=== PATIENT | male | born 1945 | race Caucasian/White ===

== ENCOUNTER 2024-02-03 19:37 | Observation (INO) | payer OTHER, SELFPAY ==
[2024-02-03] VITALS (29 sets, daily range): BP systolic 140–200; BP diastolic 79–111; PULSE 70–107; TEMP 36.7; O2SAT 97; BMI 29.6
--- NOTE | 2024-02-03 19:47 | ECG_ITS ---
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
--- NOTE | 2024-02-03 19:47 | ED.GENADUL1 ---
HPI HPI - General Adult General Chief complaint: Dizziness Stated complaint: WEAKNESS, DIZZINESS Time Seen by Provider: 02/03/24 19:42 Source: patient Mode of arrival: ambulance Limitations: no limitations History of Present Illness HPI narrative: 78-year-old male presents for generalized weakness. It started while he was having a verbal argument with his daughter with whom he lives. He did not have any pain at any point, he does not complain of chest pain or abdominal pain, he just felt weak. No fever or vomiting. He states he has not eaten much today because his daughter is in charge of that. He also states he does not like to be told what to do and she was telling him what to do. Related Data Allergies Allergy/AdvReac Type Severity Reaction Status Date / Time No Known Drug Allergies Allergy Verified 02/03/24 19:46 Opioid HPI Opioid Management Most Recent Opioid Data: No Data to Display Review of Systems ROS Narrative A ten point review of systems is negative except as noted above. PFSH PFSH Social History Little interest or pleasure in doing things: not at all Feeling down, depressed, or hopeless: not at all Exam Narrative Exam Narrative: Nurses note and vital signs reviewed and patient is not hypoxic. General: The patient appears in no acute distress. He smells of urine. He appears approximately his stated age. Skin: Warm, dry, no pallor noted. There is no rash noted. Head: Normocephalic, atraumatic Eye: Normal conjunctiva, no drainage Ears, Nose, Mouth, and Throat: oral mucosa is moist. Nares patent. Cardiovascular: Regular Rate and Rhythm Respiratory: Patient is in no distress, no accessory muscle use, lungs are clear to auscultation, no wheezing, rales or rhonchi Back: non-tender GI: Soft and nontender. Musculoskeletal: The patient has no evidence of calf tenderness, no pitting edema, symmetrical pulses noted bilaterally Neurological: Awake alert and orient Psychiatric: Cooperative Constitutional Vital Signs, click to edit/add: Last Vital Signs Temp 98.1 F 02/03/24 19:48 Pulse 71 02/03/24 23:00 Resp 15 02/03/24 23:00 BP 140/88 02/03/24 23:16 Pulse Ox 97 02/03/24 19:39 O2 Del Method Room Air 02/03/24 19:39 Course Vital Signs Vital signs: Vital Signs Pulse Rate 92 H 02/03/24 19:39 Respiratory Rate 18 02/03/24 19:39 Blood Pressure 155/101 H 02/03/24 19:39 Pulse Oximetry 97 02/03/24 19:39 Oxygen Delivery Method Room Air 02/03/24 19:39 Temperature 98.1 F 02/03/24 19:48 Pulse Rate 71 02/03/24 23:00 Respiratory Rate 15 02/03/24 23:00 Blood Pressure 140/88 02/03/24 23:16 Pulse Oximetry 97 02/03/24 19:39 Oxygen Delivery Method Room Air 02/03/24 19:39 Medical Decision Making MDM Narrative Medical decision making narrative: The patient came in with vague complaints but was found to have elevated blood pressure and elevated blood sugar. He is noncompliant with his medications. He was given IV hydralazine and his blood pressures come down. He will be admitted for medical management of his hypertension and diabetes but also should have a social insurance specialist consult. According to paramedics Adult Protective Services has already been involved with him but to what extent we are not certain. Findings are discussed with the patient. Differential Diagnosis Differential Diagnosis: Noncompliance, hypertension, diabetes, anemia, acute kidney injury Lab Data Lab results reviewed: Yes I reviewed the patient's lab results Labs: Lab Results 02/03/24 02/03/24 02/03/24 Range/Units 19:50 20:53 21:30 WBC 8.5 (4.0-11.0) 10^3/uL RBC 4.66 L (4.70-6.10) 10^6/uL Hgb 13.9 L (14.0-18.0) g/dL Hct 41.7 L (42.0-54.0) % MCV 89.5 (80.0-94.0) fL MCH 29.8 (25.9-34.0) pg MCHC 33.3 (29.9-35.2) g/dL RDW 13.0 (11.0-15.0) % Plt Count 235 (150-450) 10^3/uL MPV 10.8 (9.5-13.5) fL Neut % (Auto) 75.7 H (43.0-75.0) % Lymph % (Auto) 15.4 L (20.5-60.0) % [place] % (Auto) 5.9 (1.7-12.0) % Eos % (Auto) 1.8 (0.9-7.0) % Baso % (Auto) 0.5 (0.2-2.0) % Neut # (Auto) 6.4 (1.4-6.5) 10^3/uL Lymph # (Auto) 1.3 (1.2-3.8) 10^3/uL [place] # (Auto) 0.5 (0.3-0.8) 10^3/uL Eos # (Auto) 0.2 (0.0-0.7) 10^3/uL Baso # (Auto) 0.0 (0.0-0.1) 10^3/uL Abs Immat Gran (auto) 0.06 H (0.00-0.03) 10^3/uL Imm/Tot Granulo (auto) 0.7 H (0.0-0.5) % Sodium 133 L (136-145) mmol/L Potassium 3.7 (3.5-5.1) mmol/L Chloride 98 (98-107) mmol/L Carbon Dioxide 25.8 (21.0-32.0) mmol/L Anion Gap 12.9 BUN 18.0 (7.0-18.0) mg/dL Creatinine 1.06 (0.70-1.30) mg/dL Est GFR ( Amer) >60 (>=60) Est GFR (Non-Af Amer) >60 (>=60) BUN/Creatinine Ratio 17.0 Glucose 348 H (74-106) mg/dL Calcium 8.8 (8.5-10.1) mg/dL Troponin I High Sens 13.5 (4.0-76.1) pg/mL Urine Color Yellow (YELLOW) Urine Clarity Clear (CLEAR) Urine pH 6.0 (5.0-9.0) Ur Specific [place] 1.020 (1.005-1.025) Urine Protein Negative (NEG/TRACE) mg/dL Urine Glucose (UA) >=1000 A (NEGATIVE) mg/dL Urine Ketones Negative (NEGATIVE) mg/dL Urine Occult Blood Negative (NEGATIVE) Urine Nitrite Negative (NEGATIVE) Urine Bilirubin Negative (NEGATIVE) Urine Urobilinogen 1.0 (0.2-1.0) EU/dL Ur Leukocyte Esterase Negative (NEGATIVE) Urine RBC None seen (0-2) #/HPF Urine WBC 0-2 A (NONE SEEN) #/HPF Ur Squamous Epith Cells Few A (NONE/RARE) #/LPF Urine Crystals None seen (None Seen) #/HPF Urine Bacteria Trace A (NONE SEEN) #/HPF Urine Casts None seen (NONE SEEN) #/LPF Urine Mucus Trace A (NONE SEEN) Imaging Data Chest x-ray: My impression: Chest x-ray my interpretation shows no acute findings ECG Data Attestation: I personally reviewed and interpreted this ECG as follows: (EKG on my interpretation shows sinus rhythm with first-degree AV block and a rate of 84. No acute change.) Critical Care Time Critical Care Time Critical Care Time: Yes Total Critical Care Time: 35 Attestation: Due to the high probability of sudden and clinically significant deterioration in the patient's condition he/she required the highest level of my preparedness to intervene urgently I provided critical care time including documentation time, medication orders and management, reevaluation, vital sign assessment, ordering and reviewing of lab tests, ordering and reviewing of x-ray studies, and admission orders. Aggregate critical care time is 35 minutes including only time during which I was engaged in work directly related to his/her care and did not include time spent treating other patients simultaneously. Discharge Plan Discharge Chief Complaint: Dizziness Clinical Impression: Hypertension, Noncompliance, Poor social situation Patient Disposition: Admitted as Observation Time of Disposition Decision: 23:17 Condition: Fair
[2024-02-03 20:33] LABS: Basophils Percent Auto 0.5 % (0.2-2.0); Eosinophils Absolute Auto 0.2 10^3/uL (0.0-0.7); Eosinophils Percent Auto 1.8 % (0.9-7.0); Hematocrit 41.7 % (42.0-54.0); Hemoglobin 13.9 g/dL (14.0-18.0); Immature Granulocytes Abs Auto 0.06 10^3/uL (0.00-0.03); Immature Granulocytes Pct Auto 0.7 % (0.0-0.5); Lymphocytes Absolute Auto 1.3 10^3/uL (1.2-3.8); Lymphocytes Percent Auto 15.4 % (20.5-60.0); Mean Corpuscular HGB Conc 33.3 g/dL (29.9-35.2); Mean Corpuscular Hemoglobin 29.8 pg (25.9-34.0); Mean Corpuscular Volume 89.5 fL (80.0-94.0); Mean Platelet Volume 10.8 fL (9.5-13.5); Monocytes Absolute Auto 0.5 10^3/uL (0.3-0.8); Monocytes Percent Auto 5.9 % (1.7-12.0); Neutrophils Absolute Auto 6.4 10^3/uL (1.4-6.5); Neutrophils Percent Auto 75.7 % (43.0-75.0); Platelet Count 235 10^3/uL (150-450); Red Blood Count 4.66 10^6/uL (4.70-6.10); White Blood Count 8.5 10^3/uL (4.0-11.0)
[2024-02-03 21:41] LABS: Anion Gap 12.9; Calcium 8.8 mg/dL (8.5-10.1); Carbon Dioxide 25.8 mmol/L (21.0-32.0); Chloride 98 mmol/L (98-107); Estimated GFR (African America >60 (>=60); Estimated GFR (Non-African Ame >60 (>=60); Glucose 348 mg/dL (74-106); Potassium 3.7 mmol/L (3.5-5.1); Sodium 133 mmol/L (136-145); Troponin I High Sensitivity 13.5 pg/mL (4.0-76.1)
[2024-02-03 21:42] LABS: Bilirubin Urine NEGATIVE (NEGATIVE); Blood Urine NEGATIVE (NEGATIVE); Clarity Urine CLEAR (CLEAR); Color Urine YELLOW (YELLOW); Glucose Urine UA >=1000 mg/dL (NEGATIVE); Ketones Urine NEGATIVE (NEGATIVE); Leukocyte Esterase Urine NEGATIVE (NEGATIVE); Nitrite Urine NEGATIVE (NEGATIVE); Protein Urine NEGATIVE (NEG/TRACE)
[2024-02-03 22:34] LABS: Bacteria Urine TRACE #/HPF (NONE SEEN); Cast Seen? NONE SEEN #/LPF (NONE SEEN); Crystals Seen? None Seen #/HPF (None Seen); RBC Urine NONE SEEN #/HPF (0-2); Squamous Epithelial Cell Urine FEW #/LPF (NONE/RARE); WBC Urine 0-2 #/HPF (NONE SEEN)
[2024-02-03 22:35] LABS: Mucus Urine TRACE (NONE SEEN)
--- NOTE | 2024-02-03 22:54 | XR_ITS ---
The [address] [address] Patient Name: MAIN SAUCEDA MRN: [id number] date: 1945 Sex: M Assigned Patient Location: ER Current Patient Location: ED.MAIN Accession/Order Number: [id number] Exam Date: 02/03/2024 23:10 Report Date: 02/03/2024 23:53 At the request of: JERONIMO TUCKER Procedure: XR chest 1V XR chest 1V 02/03/2024 10:10 PM CDT: History: weak Comparison: None. Technique: 1 view chest Findings: The cardiomediastinal silhouette is normal. There are postoperative changes from CABG. The lungs are clear without infiltrate, effusion, or pneumothorax. The bones are intact. XR/XR chest 1V Impression: No acute cardiopulmonary process. Electronically authenticated by: MECCA GRIMALDO Date: 02/03/2024 23:53
[2024-02-03] MEDS: HYDRALAZINE HCL 20 MG/ML VIAL 10 MG IVP (22:58)
[2024-02-04] VITALS (13 sets, daily range): BP systolic 126–160; BP diastolic 71–79; PULSE 59–104; TEMP 36.4–36.8; O2SAT 94–97; BMI 26.1
[2024-02-04 06:03] LABS: Basophils Absolute Auto 0.1 10^3/uL (0.0-0.1); Basophils Percent Auto 0.6 % (0.2-2.0); Eosinophils Absolute Auto 0.3 10^3/uL (0.0-0.7); Eosinophils Percent Auto 2.9 % (0.9-7.0); Hematocrit 38.4 % (42.0-54.0); Hemoglobin 12.6 g/dL (14.0-18.0); Immature Granulocytes Abs Auto 0.04 10^3/uL (0.00-0.03); Immature Granulocytes Pct Auto 0.5 % (0.0-0.5); Lymphocytes Absolute Auto 1.7 10^3/uL (1.2-3.8); Lymphocytes Percent Auto 19.6 % (20.5-60.0); Mean Corpuscular HGB Conc 32.8 g/dL (29.9-35.2); Mean Corpuscular Volume 88.3 fL (80.0-94.0); Monocytes Absolute Auto 0.7 10^3/uL (0.3-0.8); Monocytes Percent Auto 7.8 % (1.7-12.0); Neutrophils Absolute Auto 6.1 10^3/uL (1.4-6.5); Neutrophils Percent Auto 68.6 % (43.0-75.0); Platelet Count 233 10^3/uL (150-450); Red Blood Count 4.35 10^6/uL (4.70-6.10); White Blood Count 8.9 10^3/uL (4.0-11.0)
[2024-02-04 06:26] LABS: Alanine Aminotransferase 8 U/L (16-63); Albumin Globulin Ratio 0.7; Albumin Level 2.7 g/dL (3.4-5.0); Alkaline Phosphatase 122 U/L (46-116); Anion Gap 10.7; Aspartate Amino Transferase 7 U/L (15-37); BUN Creatinine Ratio 18.3; Bilirubin Total 0.5 mg/dL (0.2-1.0); Calcium 8.5 mg/dL (8.5-10.1); Carbon Dioxide 26.7 mmol/L (21.0-32.0); Chloride 100 mmol/L (98-107); Estimated GFR (African America >60 (>=60); Estimated GFR (Non-African Ame >60 (>=60); Globulin 3.7 g/dL; Glucose 218 mg/dL (74-106); Magnesium 1.8 mg/dL (1.8-2.4); Potassium 3.4 mmol/L (3.5-5.1); Sodium 134 mmol/L (136-145); Total Protein 6.4 g/dL (6.4-8.2)
[2024-02-04 07:40] LABS: Glucometer 205 mg/dL (74-106)
[2024-02-04] MEDS: ENOXAPARIN SODIUM 40 MG/0.4 ML SYRINGE SUBQ (08:17)
--- NOTE | 2024-02-04 10:25 | CM.NOTE ---
Rounds made with Dr. Alonzo. Dr. Alonzo reviews plan of care with Mr. Thomas. Understanding verbalized. Discussed with Mr. Thomas the need for Family Physician as he does not have one. List given for physicians/[employer] currently accepting new patients. Mr. Thomas will decide who he would like after he finishes breakfast.
--- NOTE | 2024-02-04 11:22 | SWNOTE1 ---
SW met with pt to discuss dc needs. SW had a protective service order as well. Pt has 2 daughters, Fern and Lucy. He also has a son that he does not speak to. Lucy his one daughter does live on the property with patient. Pt bought 2 lots awhile back and he lives in the yard building. There is an outhouse outside. Pt does not have running water, but stated they go to the water station in [place] to get water when needed. SW asked about electricity? Pt stated they run off batteries. SW asked about getting food and having food available? Pt stated his daughter uses some kind of taxi transportation to get food when they need it. He spoke about his daughter Lucy and how she is trying to boss him around, per patient. He stated she is on probation and she also gets in to it with the neighbors and he has told her not to. SW did ask if pt has any plans of harming his daughter as he has voiced frustrations about her, he stated no. He voiced he just makes things work. SW asked if he would need any resources in regards to care home, food, electric, or water? He stated no he will be fine and he makes it work. SW did ask if Adult Protective Services have ever been at his home? He stated no. Pt voiced that a Automobile Rental Representative stops by every once in awhile and checks on him. Pt did go in to detail about the struggles he had in the past. He spoke about caring for his for 11 years while she was on dialysis. She passed back in 2008. He spoke about building the house they lived in outside of [place]. Pt then spoke about how a toll bridge operator had made something up about his taxes and then his home was basically given away and he could not bid on it. Pt did voice frustrations with all of this and also became teary-eyed when speaking about his . Pt voiced there was nothing he can do about it now and he is tough and will be fine. Pt does have walkers at home, a cane, and stated his daughter got him a motorized chair, but he has not seen it yet. SW [facility]? He stated the [facility] does not [facility] anything for him. SW again asked pt if he felt safe to discharge and if he needs any resources? Pt again voiced he was fine. SW did provide pt with SW card and encouraged pt to reach out if he does need any resources. TANIKA did ask if SW can call pt's daughter, Lucy, since she called the nurses floor? He stated there is no need to talk to her. TANIKA asked if pt's daughter called SW what would pt like SW to tell her? He stated to tell her that SW has not seen pt. At this time pt does not want SW to speak with daughter. Pt and daughter do not drive as they do not have a battery for the van. SW asked how pt was going to get home? SW advised that trips is closed today. Pt voiced he will find a ride. SW to check back later to see if a ride was found. SW asked pt if he was going to follow up with a doctor if we can set him up with a physician. Pt voiced he does not really need to as he is not on medications and just needs the meds he is discharged on. TANIKA updated nursing. At this time SW is not making a referral to Adult Protective Services as SW does feel pt is able to care for himself no concerns for his safety.
[2024-02-04 12:00] LABS: Glucometer 395 mg/dL (74-106)
--- NOTE | 2024-02-04 12:15 | SWNOTE1 ---
SW spoke to physical therapy and pt did not do too well with therapy. Pt struggled getting up, but once he was up he did alright. SW to speak with pt about going to nursing facility or having home health come in. SW went in to speak with pt about discharge plans. SW asked how therapy went? Pt did state it was hard to get up, but once he was up he got to the chair just fine. SW asked if he would be open to going to a nursing facility for a short time to do therapy and get stronger. Pt voiced he was at [facility] for 2 years. He stated he went there from [facility]. He state they tried to get him to stay longer, but he decided he wanted to go home. Pt stated he does not want to go to rehab. At this time pt is refusing. SW then asked about at least letting home health services come in to do therapy and a nurse to check on him. Pt refused these services as well and voiced he does not want home health. SW attempted to encourage pt to at least try home health for at least one visit, but pt refused. At this time pt is refusing any services at discharge. SW let doctor and nurse know.
--- NOTE | 2024-02-04 12:42 | PM.HP ---
HPI H&P: HPI History of Present Illness Chief complaint: WEAKNESS, DIZZINESS Narrative: HPI and Hospital Course: 78 y o male who lives with his daughter, called EMS after having an argument with her daughter and was brought over to ED for generalized weakness. Upon evaluation in ED, he was found to have elevated BP with SBP as high as 200 and hyperglycemia. He also appeared to have mild dehydration. Rest of the work up in ED did not reveal any sig finding. Patient was admitted overnight for observation. His BP improved during the course of admission with PRN hydralazine. He was evaluated by PT and was recommended to go to rehab but patient is adamant to go home and refusing inpatient rehab. he is non compliant and does not take his medications. He currently does not have a PCP. He is AAOX3, and competent to make his own decisions. He is medically stable for discharge. He will need PO Norvasc 5 mg daily, Metformin 500 q12 for HTN and T2 DM. He will need to establish with a PCP so that his chronic conditions can be managed appropriately. Opioid HPI Opioid Management Most Recent Pain and Opioid Data: Last Pain Assessment 02/04/24 11:54 Last ORT Total Score 0 02/04/24 00:21 Last ORT Risk Category Low Risk 02/04/24 00:21 Review of Systems ROS Status of ROS 10 or more systems reviewed and unremarkable except as noted in history and below [facility] Medical History (Updated 02/04/24 @ 12:49 by Shaikh Cheri MD) Type 2 diabetes mellitus ?E11.9 - Type 2 diabetes mellitus without complications (ICD-10) Hypertension ?I10 - Essential (primary) hypertension (ICD-10) HTN (hypertension) ?I10 - Essential (primary) hypertension (ICD-10) HLD (hyperlipidemia) ?E78.5 - Hyperlipidemia, unspecified (ICD-10) CAD (coronary artery disease) ?I25.10 - Atherosclerotic heart disease of [place] coronary artery without angina pectoris (ICD-10) Surgical History (Updated 02/04/24 @ 00:35 by Maricruz Matamoros) H/O heart artery stent ?Z95.5 - Presence of coronary angioplasty implant and graft (ICD-10) History of open heart surgery ?Z98.890 - Other specified postprocedural states (ICD-10) Social History (Updated 02/04/24 @ 00:36 by Maricruz Matamoros) Within the past year, how often did you have a drink containing alcohol: never Score interpretation: A score less than 4 is consistent with normal alcohol consumption. Smoking status: Never smoker Non-prescribed substance use: denies use Previous occupational history: retired Highest level of school completed/degree received: 11th grade Are you now , , , , never or living with a partner: In a typical week, how many times do you talk on the telephone with family, friends, or neighbors: never How often do you get together with friends or relatives: never How often do you attend zoroastrian or pentecostal services: never Little interest or pleasure in doing things: not at all Feeling down, depressed, or hopeless: not at all Feel stressed/tense/nervous/anxious/difficulty sleeping: not at all Do you think of yourself as: straight/heterosexual Gender Identity: male Meds Home Medications and Allergies Allergies Allergy/AdvReac Type Severity Reaction Status Date / Time No Known Drug Allergies Allergy Verified 02/03/24 19:46 Exam Constitutional Vital Signs, click to edit/add: Last Vital Signs Temp 97.5 F L 02/04/24 08:21 Pulse 102 H 02/04/24 12:14 Resp 18 02/04/24 12:14 BP 126/71 02/04/24 12:14 Pulse Ox 96 02/04/24 12:14 O2 Del Method Room Air 02/04/24 12:14 Documenting provider has reviewed patient's vital signs: yes Common normals: no apparent distress and oriented x3 General appearance: cooperative HENPR Common normals: normocephalic and head/scalp atraumatic Head and scalp: normocephalic and atraumatic Eye Common normals: conjunctivae normal and no scleral icterus Conjunctiva: conjunctiva(e) normal Respiratory Common normals: normal respiratory effort and clear to auscultation bilaterally Effort & inspection: able to speak in complete sentences Auscultation: clear to auscultation bilaterally Cardio Common normals: regular rate, S1 normal heart sound and S2 normal heart sound Rate: regular rate Heart sounds: S1 normal and S2 normal GI Common normals: Normal to inspection, nondistended, normoactive bowel sounds present, soft to palpation, non-tender and no hepatosplenomegaly Palpation: soft and no hepatosplenomegaly Extremity Common normals: no clubbing, cyanosis or edema Neuro Common normals: oriented x3, moves all extremities and no focal motor deficits Psych Common normals: mental status grossly normal, denies hallucinations, denies homicidal ideation and denies suicidal ideation Insight: poor Results Labs Labs: Short CBC 02/03/24 02/04/24 Range/Units 19:50 05:48 WBC 8.5 8.9 (4.0-11.0) 10^3/uL Hgb 13.9 L 12.6 L (14.0-18.0) g/dL Hct 41.7 L 38.4 L (42.0-54.0) % Plt Count 235 233 (150-450) 10^3/uL BMP 02/03/24 02/04/24 20:53 05:48 Sodium 133 L 134 L Potassium 3.7 3.4 L Chloride 98 100 Carbon Dioxide 25.8 26.7 BUN 18.0 17.0 Creatinine 1.06 0.93 Glucose 348 H 218 H Calcium 8.8 8.5 Liver Function 02/04/24 Range/Units 05:48 Total Bilirubin 0.5 (0.2-1.0) mg/dL AST 7 L (15-37) U/L ALT 8 L (16-63) U/L Alkaline Phosphatase 122 H (46-116) U/L Albumin 2.7 L (3.4-5.0) g/dL Urine 02/03/24 Range/Units 21:30 Urine Color Yellow (YELLOW) Urine Clarity Clear (CLEAR) Urine pH 6.0 (5.0-9.0) Ur Specific [place] 1.020 (1.005-1.025) Urine Protein Negative (NEG/TRACE) mg/dL Urine Glucose (UA) >=1000 A (NEGATIVE) mg/dL Assessment and Plan Assessment and Plan (1) Hypertensive urgency: Assessment and Plan: BP improved. Will need discharge on PO norvasc. Needs close f/u as outpatient to ensure BP is adequately managed. (2) Hypertension: Assessment and Plan: D/c on oral Norvasc 5 mg. Careful and cautious with new medications due to his age/non compliance. Will need to establish with PCP for chronic care management. Qualifiers: Hypertension type: primary hypertension Qualified Code(s): I10 - Essential (primary) hypertension (3) Type 2 diabetes mellitus: Assessment and Plan: P/w hyperglycemia. received SSI while inpatient. Will d/c on oral metformin. Needs outpatient monitoring/f/u with PCP Qualifiers: Diabetes mellitus terminal operator insulin use: without half-way use Diabetes mellitus complication status: without complication Qualified Code(s): E11.9 - Type 2 diabetes mellitus without complications (4) CAD (coronary artery disease): Assessment and Plan: Prior hx of PCI, CABG. No evidence of active cardiac ischemia. Patient instructed to use daily aspirin 81 mg for secondary prevention Qualifiers: Coronary Disease-Associated Artery/Lesion type: [place] artery [place] vs. transplanted heart: [place] heart Associated angina: without angina Qualified Code(s): I25.10 - Atherosclerotic heart disease of [place] coronary artery without angina pectoris (5) HLD (hyperlipidemia): Assessment and Plan: SHould be on statin due to hx of CAD, T2 DM, defer to PCP once established with new provider. Qualifiers: Hyperlipidemia type: unspecified Qualified Code(s): E78.5 - Hyperlipidemia, unspecified (6) Noncompliance: Assessment and Plan: Educated/counseled on importance of compliance. unfortunately, he has poor insight.
--- NOTE | 2024-02-04 14:35 | PC.NURSE ---
[facility]. He does not want to schedule a follow up appointment because he states I go there as little as possible . 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
--- NOTE | 2024-02-04 16:09 | SWNOTE1 ---
Pt's daughter, Lucy, did call and was speaking with nurse. SW joined the conversation and daughter was placed on speaker. TANIKA did advise Lucy that SW/nurse can't provide any medical updates since pt does not want us to provide information to her. he voiced understanding. She did voice that she hopes pt had a physical assessment and mental assessment. TANIKA advised her that pt is being discharged. Lucy then went on to explain that APS has been to the home a few times and Sweta at [facility] has assisted with getting pt rides and solar panel for a television. She voiced that pt is stubborn and she is trying to care for him. She then spoke about there disagreement in regards to the car keys/van/ license. She also stated that her and her sister are trying to get guardianship over the patient. Lucy did voice that she owns the property, but pt can come back if he wants to or go elsewhere and that is his right. She stated she just has to mentally prepare herself for him to return. TANIKA advised Lucy to mentally prepare herself for pt to return. TANIKA spoke to pt and he does have money for a taxi. SW called [employer] and they will be here around 4:30. It will be around $40. TANIKA let nursing know. TANIKA advised pt that transport will be here around 4:30. Pt has a cane with him and he has walker at home. TANIKA advised pt that Lucy will be at the home and encouraged pt to have a civil conversation with Lucy.
--- NOTE | 2024-02-05 14:20 | CM.DCFOLLOWU ---
1st attempt 02/05/24, no answer
--- NOTE | 2024-02-06 14:15 | CM.DCFOLLOWU ---
2nd attempt 02/06/24, no answer
== END 2024-02-04 16:40 | disposition home or self-care (01) ==
LOC: ER 23:17 → MS 02-04 00:18
PROVIDERS: Registered Nurse; Admitting Provider Internal Medicine; Emergency Provider Emergency Medicine; Visit Provider Internal Medicine
DX: I16.0 Hypertensive urgency (principal); E11.65 Type 2 diabetes mellitus with hyperglycemia; I25.10 Atherosclerotic heart disease of native coronary artery without angina pectoris; Z95.1 Presence of aortocoronary bypass graft; E78.5 Hyperlipidemia, unspecified; Z91.148 Patient's other noncompliance with medication regimen for other reason
CPT/HCPCS: 36415; 71045; 80048; 80053; 81001; 82948; 83735; 83880; 84484; 85025; 93005; 94761; 96372; 96374; 99285; G0378; J0360; J1650

== ENCOUNTER 2024-08-21 11:58 | Emergency (ER) | payer OTHER, SELFPAY ==
[2024-08-21 11:59] VITALS: BP 171/115; PULSE 69; TEMP 36.7; O2SAT 96; BMI 29.6
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
--- NOTE | 2024-08-21 12:15 | PC.NURSE ---
pt to CT via stretcher at this time.
[2024-08-21 13:08] VITALS: BP 152/90; PULSE 78; O2SAT 99
[2024-08-21 13:28] VITALS: PULSE 73
[2024-08-21 13:40] LABS: Basophils Absolute Auto 0.1 10^3/uL (0.0-0.1); Basophils Percent Auto 0.5 % (0.2-2.0); Eosinophils Absolute Auto 0.2 10^3/uL (0.0-0.7); Eosinophils Percent Auto 2.6 % (0.9-7.0); Hematocrit 44.3 % (42.0-54.0); Hemoglobin 14.6 g/dL (14.0-18.0); Immature Granulocytes Abs Auto 0.07 10^3/uL (0.00-0.03); Immature Granulocytes Pct Auto 0.8 % (0.0-0.5); Lymphocytes Absolute Auto 1.4 10^3/uL (1.2-3.8); Lymphocytes Percent Auto 15.7 % (20.5-60.0); Mean Corpuscular Hemoglobin 29.5 pg (25.9-34.0); Mean Corpuscular Volume 89.5 fL (80.0-94.0); Monocytes Absolute Auto 0.7 10^3/uL (0.3-0.8); Monocytes Percent Auto 7.1 % (1.7-12.0); Neutrophils Absolute Auto 6.8 10^3/uL (1.4-6.5); Neutrophils Percent Auto 73.3 % (43.0-75.0); Platelet Count 221 10^3/uL (150-450); Red Blood Count 4.95 10^6/uL (4.70-6.10); Red Cell Distribution Width 13.1 % (11.0-15.0); White Blood Count 9.2 10^3/uL (4.0-11.0)
[2024-08-21 13:45] LABS: Anion Gap 12.6; BUN Creatinine Ratio 13.9; Calcium 8.9 mg/dL (8.5-10.1); Carbon Dioxide 28.4 mmol/L (21.0-32.0); Chloride 102 mmol/L (98-107); Estimated GFR (African America >60 (>=60 mL/min/1.73m^2); Estimated GFR (Non-African Ame 57 (>=60 mL/min/1.73m^2); Glucose 261 mg/dL (74-106); Sodium 139 mmol/L (136-145)
[2024-08-21 13:50] LABS: INR 0.98; Partial Thromboplastin Time 28.2 sec (22.3-36.2); Prothrombin Time 10.4 sec (9.0-11.6)
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
--- NOTE | 2024-08-21 17:38 | ECG_ITS ---
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 Measurements Intervals Stringer Rate: 73 P: 62 SC: 278 QRS: -41 QRSD: 110 T: 17 QT: 390 QTc: 415 Interpretive Statements Sinus rhythm with first degree AV block with non-conducted PAC 3114 Cannot rule out anterior myocardial infarction, age undetermined 3633 Inferior myocardial infarction, probably old 9150 abnormal ECG Compared to ECG 02/03/2024 19:54:47 No significant changes Electronically Signed On 08-22-2024 10:36:58 EDT by SONJA JACK M.D.
== END 2024-08-21 15:16 | disposition short-term general hospital (02) ==
PROVIDERS: Emergency Provider Emergency Medicine
DX: S09.8XXA Other specified injuries of head, initial encounter (principal); R93.0 Abnormal findings on diagnostic imaging of skull and head, not elsewhere classified; Z95.5 Presence of coronary angioplasty implant and graft; W05.0XXA Fall from non-moving wheelchair, initial encounter; R51.9 Headache, unspecified; Z79.899 Other long term (current) drug therapy; E11.9 Type 2 diabetes mellitus without complications; Z79.84 Long term (current) use of oral hypoglycemic drugs; I25.10 Atherosclerotic heart disease of native coronary artery without angina pectoris
CPT/HCPCS: 36415; 70450; 72125; 80048; 85025; 85610; 85730; 93005; 99285

== ENCOUNTER 2025-01-21 22:43 | Emergency (ER) | payer OTHER, SELFPAY ==
[2025-01-21] VITALS (11 sets, daily range): BP systolic 173; BP diastolic 80; PULSE 83–94; TEMP 36.7; O2SAT 84–95; BMI 29.9
--- OUTSIDE RECORDS SUMMARY | 2025-01-21 22:51 | XMS_ITS | Clinical Summary ---
Author Organization [facility] tem Address [id number] [place] [address] Care Team Providers Care Truck Driver Helper Name Role Phone No Pcp, No Pcp Primary Care Provider Unavailabl e Allergies No known active allergies Medications BLOOD SUGAR DIAGNOSTIC, DISC MISC by miscellaneous route. Active syr,ndl,ins,sa fe 0.5mL,disp un (INSULIN SYRINGE-NEEDLE ,DISPOS. MISC) by miscellaneous route. Active lancets misc by miscellaneous route. Active NON FORMULARY 1 tablet. Med Name: bioplasma (this contains all 12 of the amino acids) Active Active Problems Problem Noted Date Diagnosed Date Elevated LFTs 09/28/2020 Immunizations No known immunizations Social History Tobacco Use Types Packs/Day Years Used Date Smoking Tobacco: Never Smokeless Tobacco: Never Tobacco Cessation:Counseling Given: Not Answered Alcohol Use Standard Drinks/Week Comments Yes 0 (1 standard drink = 0.6 oz pur e alcohol) very occas AUDIT-C Answer Date Recorded Frequency of Alcohol Consumption Never 04/15/2020 Average Number of Drinks Not on file 020 Frequency of Binge Drinking Not on file 08/2019 Childcare Answer Date Recorded Childcare Unknown 10/16/2018 Employment Answer Date Recorded Employment Unknown 10/16/2018 Purpose - Life Answer Date Recorded Purpose and direction in life Unknown Sex and Gender Information Value Date Recorded Sex Assigned at Not on file Legal Sex Male 1:17 PM EDT Gender Identity Not on file Sexual Orientation Not on file Last Filed Vital Signs Vital Sign Reading Time Taken Comments Blood Pressure 114/72 03/29/2022 1:28 AM EST Pulse 78 03/29/2022 1:28 AM EST Temperature 36.7 C (98.1 F) 03/28/2022 11:43 PM EST Respiratory Rate 14 03/29/2022 1:28 AM EST Oxygen Saturation 94% 03/29/2022 1:28 AM EST Inhaled Oxygen Concentration - - Weight 91.2 kg (201 lb) 03/28/2022 11:43 PM EST Height 180.3 cm (5' 11 ) 03/28/2022 11:43 PM EST Body Mass Index 28.03 03/28/2022 11:43 PM EST Plan of Treatment Health Maintenance Due Date Last Done Comments Depression Screening 1957 Tobacco Screening 1957 DTaP,Tdap and Td Vaccines (1 - Tdap) 11/11/1963 Zoster (Shingles) Vaccine (1 of 2) 1994 Fall Risk Screening 2009 Influenza Vaccine 01/11/2025 Goals Goal Patient Goal Type Associated Problems Recent Progress Patient-Stated? Author Home General Yes Sarahi Frances LSW Note: Evaluation of progress towards goal: Safe dc transition from hospital to home with family support. Medical Devices Not on file Insurance MEDICARE [facility] [employer] Care Teams Truck Driver Helper Relationship Specialty Start Date End Date No Pcp, No Pcp ANDREY Garner [id number] PCP - General Family Medicine 03/28/22
--- OUTSIDE RECORDS SUMMARY | 2025-01-21 22:51 | XMS_ITS | Clinical Summary ---
Author Organization [facility] Address [address] [place] [address] Care Team Providers Care Energy And Sustainability Manager Name Role Phone Juan Diego Warren MD Primary Care Provider [phone] Allergies Active Allergy Reactions Criticality Noted Date Comments Metformin Diarrhea 02/05/2011 02/05/2011 19:29 [facility]

PER PT. Pravastatin 12/17/2012 Other Reaction(s): Muscle pain (finding) Medications No known medications Social History Tobacco Use Types Packs/Day Years Used Date Smoking Tobacco: Never Smokeless Tobacco: Never Tobacco Cessation:Counseling Given: Not Answered Alcohol Use Standard Drinks/Week Comments Never 0 (1 standard drink = 0.6 oz pur e alcohol) Sex and Gender Information Value Date Recorded Sex Assigned at Not on file Legal Sex Male 11:24 PM EDT Gender Identity Not on file Sexual Orientation Not on file Last Filed Vital Signs Vital Sign Reading Time Taken Comments Blood Pressure - - Pulse 106 05/08/2023 1:24 PM EST Temperature 36.6 C (97.8 F) 05/08/2023 1:24 PM EST Respiratory Rate 18 05/08/2023 1:24 PM EST Oxygen Saturation 99% 05/08/2023 1:24 PM EST Inhaled Oxygen Concentration - - Weight 96.2 kg (212 lb) 05/08/2023 1:24 PM EST Height - - Body Mass Index - - Plan of Treatment Not on file Insurance [employer] [place] Care Teams Energy And Sustainability Manager Relationship Specialty Start Date End Date Juan Diego Warren MD [address] [place] [address] PCP - General Family Medicine 05/08/23
--- OUTSIDE RECORDS SUMMARY | 2025-01-21 22:51 | XMS_ITS | CCD ---
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 spine was performed without the administration of intravenous contrast. Multiplanar reformatted images are provided for review. Adjustment of mA and/or kV according to patient size was utilized. Automated exposure control, iterative reconstruction, and/or weight based adjustment of the mA/kV was utilized to reduce the radiation dose to as low as reasonably achievable. COMPARISON: None HISTORY: ORDERING SYSTEM PROVIDED HISTORY: TRAUMA TECHNOLOGIST PROVIDED HISTORY: trauma Reason for Exam: trauma FINDINGS: BONES/ALIGNMENT: There is normal alignment of the spine. The vertebral body heights are maintained. No osseous destructive lesion is seen. DEGENERATIVE CHANGES: Diffuse mild degenerative changes of the lumbar spine. SOFT TISSUES/RETROPERITONEUM: No paraspinal mass is seen. IMPRESSION: No acute lumbar fracture or listhesis. Diffuse mild degenerative change. Interpreted by: Tonny Rodrigez MD Signed by: Tonny Rodrigez MD 08/21/24 Final result Normal [facility] CT Lumbar spine by reconstru ctionon 08-21-2024 No acute lumbar frac ture or listhesis. Diffuse mild degenerative change. [facility] EXAMINATION: CT OF THE LUMBAR SPINE WITHOUT CONTRAST 08/21/2024 TECHNIQUE: CT of the lumbar spine was performed without the administration of intravenous contrast. Multiplanar reformatted images are provided for review. Adjustment of mA and/or kV according to patient size was utilized. Automated exposure control, iterative reconstruction, and/or weight based adjustment of the mA/kV was utilized to reduce the radiation dose to as low as reasonably achievable. COMPARISON: None HISTORY: ORDERING SYSTEM PROVIDED HISTORY: TRAUMA TECHNOLOGIST PROVIDED HISTORY: trauma Reason for Exam: trauma FINDINGS: BONES/ALIGNMENT: There is normal alignment of the spine. The vertebral body heights are maintained. No osseous destructive lesion is seen. DEGENERATIVE CHANGES: Diffuse mild degenerative changes of the lumbar spine. SOFT TISSUES/RETROPERITONEUM: No paraspinal mass is seen. [facility] Tonny Rodrigez MD - 08/21/2024 EXAMINATION: CT OF THE LUMBAR SPINE WITHOUT CONTRAST 08/21/2024 TECHNIQUE: CT of the lumbar spine was performed without the administration of intravenous contrast. Multiplanar reformatted images are provided for review. Adjustment of mA and/or kV according to patient size was utilized. Automated exposure control, iterative reconstruction, and/or weight based adjustment of the mA/kV was utilized to reduce the radiation dose to as low as reasonably achievable. COMPARISON: None HISTORY: ORDERING SYSTEM PROVIDED HISTORY: TRAUMA TECHNOLOGIST PROVIDED HISTORY: trauma Reason for Exam: trauma FINDINGS: BONES/ALIGNMENT: There is normal alignment of the spine. The vertebral body heights are maintained. No osseous destructive lesion is seen. DEGENERATIVE CHANGES: Diffuse mild degenerative changes of the lumbar spine. SOFT TISSUES/RETROPERITONEUM: No paraspinal mass is seen. IMPRESSION: No acute lumbar fracture or listhesis. Diffuse mild degenerative change. [facility] CT Lumbar spine by reconstru ctionOrdered By: Tonny Rodrigez on 08-21-2024 [facility] Work Phone: CT THORACIC SPINE BONY RECON STRUCTIONon 08-21-2024 CT THORACIC SPINE BONY RECONSTRUCTION EXAMINATION: CT OF THE THORACIC SPINE WITHOUT CONTRAST 08/21/2024 1:23 pm: TECHNIQUE: CT of the thoracic spine was performed without the administration of intravenous contrast. Multiplanar reformatted images are provided for review. Automated exposure control, iterative reconstruction, and/or weight based adjustment of the mA/kV was utilized to reduce the radiation dose to as low as reasonably achievable. COMPARISON: None. HISTORY: ORDERING SYSTEM PROVIDED HISTORY: trauma TECHNOLOGIST PROVIDED HISTORY: trauma Reason for Exam: trauma FINDINGS: BONES/ALIGNMENT: There is normal alignment of the spine. The vertebral body heights are maintained. No osseous destructive lesion is seen. DEGENERATIVE CHANGES: No gross spinal canal stenosis or bony neural foraminal narrowing of the thoracic spine. SOFT TISSUES: No paraspinal mass is seen. IMPRESSION: Unremarkable CT of the thoracic spine. Interpreted by: Shabbir Park MD Signed by: Shabbir Park MD 08/21/24 Final result Normal [facility] CT Thoracic spine by reconst jitendractionalla 08-21-[address] of t he thoracic spine. [facility] CON[facility] EXAMINATION: CT OF THE THORACIC SPINE WITHOUT CONTRAST 08/21/2024 1:23 pm: TECHNIQUE: CT of the thoracic spine was performed without the administration of intravenous contrast. Multiplanar reformatted images are provided for review. Automated exposure control, iterative reconstruction, and/or weight based adjustment of the mA/kV was utilized to reduce the radiation dose to as low as reasonably achievable. COMPARISON: None. HISTORY: ORDERING SYSTEM PROVIDED HISTORY: trauma TECHNOLOGIST PROVIDED HISTORY: trauma Reason for Exam: trauma FINDINGS: BONES/ALIGNMENT: There is normal alignment of the spine. The vertebral body heights are maintained. No osseous destructive lesion is seen. DEGENERATIVE CHANGES: No gross spinal canal stenosis or bony neural foraminal narrowing of the thoracic spine. SOFT TISSUES: No paraspinal mass is seen. [facility] Shabbri Park MD - 08/21/2024 EXAMINATION: CT OF THE THORACIC SPINE WITHOUT CONTRAST 08/21/2024 1:23 pm: TECHNIQUE: CT of the thoracic spine was performed without the administration of intravenous contrast. Multiplanar reformatted images are provided for review. Automated exposure control, iterative reconstruction, and/or weight based adjustment of the mA/kV was utilized to reduce the radiation dose to as low as reasonably achievable. COMPARISON: None. HISTORY: ORDERING SYSTEM PROVIDED HISTORY: trauma TECHNOLOGIST PROVIDED HISTORY: trauma Reason for Exam: trauma FINDINGS: BONES/ALIGNMENT: There is normal alignment of the spine. The vertebral body heights are maintained. No osseous destructive lesion is seen. DEGENERATIVE CHANGES: No gross spinal canal stenosis or bony neural foraminal narrowing of the thoracic spine. SOFT TISSUES: No paraspinal mass is seen. IMPRESSION: Unremarkable CT of the thoracic spine. [facility] CT Thoracic spine by reconst ructionOrdered By: Shabbir Park on 08-21-2024 [facility] Work Phone: Hemoglobin A1Con 08-21-2024 Average glucose Estimated from glycated hemoglobin (Bld) [Mass/Vol] 192 mg/dL [facility] Comment on above: The ADA and AACC rec ommend providing the estimated average glucose result to permit better patient understanding of their HBA1c result. HbA1c (Bld) [Mass fraction] 8.3 % High 4.0 - 6.0 % [facility] Interpretation and review of laboratory results Abnormal [facility] Glucose [Mass/Vol] 192 mg/dL Normal [facility] Comment on above: Result Comment: The ADA and AACC recommend providing the estimated average glucose result to permit better patient understanding of their HBA1c result. Performed By: #### V D25, ECENZ, B12, ERTPF, FT4, GLYHGB, ALB, TSH #### [employer] [address] [place] [id number] [employer] Publisher: Brendan Melchor MD Performed By: #### V D25, ECENZ, B12, GLYHGB, ERTPF, FT4, TSH, ALB #### [employer] [address] [place] [phone] [employer] Publisher: Brendan Melchor MD HbA1c (Bld) [Mass fraction] 8.3 % High 4.0-6.0 [facility] Comment on above: Performed By: #### V D25, ECENZ, B12, ERTPF, FT4, GLYHGB, ALB, TSH #### [employer] [address] [place], [place] [phone] Editing Computer Publisher: Brendan Melchor MD Performed By: #### V D25, ECENZ, B12, GLYHGB, ERTPF, FT4, TSH, ALB #### [employer] [address] [place], [place] [phone] [employer] Computer Publisher: Brendan Melchor MD No Panel Informationon 08-21 Interpretation and review of laboratory results Abnormal [facility] Radiology Study observation (narrative) [facility] T4, Freeon 08-21-2024 Free T4 [Mass/Vol] 0.9 ng/dL 0.9 - 1.7 ng/dL [facility] TROP/MYOGLOBINon 08-21-2024 Myoglobin [Mass/Vol] 91 ng/mL High 28 - 72 ng/mL [facility] Troponin I.cardiac High sensitivity method [Mass/Vol] 33 ng/L High 0 - 22 ng/L [facility] Comment on above: High Sensitivity Tro ponin values cannot be compared with other Troponin methodologies. TSHon 08-21-2024 TSH Qn 4 m[IU]/L [facility] TYPE AND SCREENon 08-21-2024 ABO and Rh group Nom (Bld) Blood group O Rh(D) positive [facility] Arm Band Number [id number] [facility] Blood Bank Sample Expiration 08/24/2024,2359 [facility] Blood group antibodies identified Nom Negative [facility] Thyroid Stim. Horm.on 2024 Thyroid Stim. Horm. 4.00 uIU/mL Normal 0.27-4.20 [facility] Comment on above: Performed By: #### V D25, ECENZ, B12, ERTPF, FT4, GLYHGB, ALB, TSH ####[employer] [address] [place], [place] [id number] Lab Director: Brendan Melchor MD Performed By: #### V D25, ECENZ, B12, GLYHGB, ERTPF, FT4, TSH, ALB ####[facility] [address] [place], [place] [address] Lab Director: Brendan Melchor MD Thyroxine, Freeon 08-21-2024 Thyroxine, Free 0.9 ng/dL Normal 0.9-1.7 [facility] Comment on above: Performed By: #### V D25, ECENZ, B12, ERTPF, FT4, GLYHGB, ALB, TSH ####[facility] [address] [place], [place] [id number] lab Director: Brendan Melchor MD Performed By: #### V D25, ECENZ, B12, GLYHGB, ERTPF, FT4, TSH, ALB ####[facility] [address] [place], [place] [id number] lab Director: Brendan Melchor MD Trauma Panelon 08-21-2024 Anion gap [Moles/Vol] 12 mmol/L 9 - 16 mmol/L [facility] [employer] aPTT Coag (Bld) [Time] 30.9 s [facility] [employer] Comment on above: IV Heparin Therapy Range: 66.0-92.0 sec Blood Bank Specimen BILL FOR SERVICES PERFORMED [facility] Carboxyhemoglobin (Bld) [Mass fraction] 1.0 % 0 - 5 % [facility] [employer] Comment on above: Reference Range: Non-Smokers 0-2% Average Smoker 2-4% Heavy Smoker <10% Chloride [Moles/Vol] 102 mmol/L 98 - 10 7 mmol/L [facility] [employer] CO2 [Moles/Vol] 22 mmol/L 20 - 31 mmol/L [facility] [employer] Creatinine [Mass/Vol] 0.9 mg/dL 0.7 - 1.2 mg/dL [facility] [employer] Erythrocyte distribution width (RBC) [Ratio] 13.2 % 11.8 - 14.4 % [facility] [employer] Est, Glom Filt Rate 87 - PINF [facility] Comment on above: These results are not intended for use in patients <18 years of age. eGFR results are calculated without a race factor using the 2020 CKD-EPI equation. Careful clinical correlation is recommended, particularly when comparing to results calculated using previous equations. The CKD-EPI equation is less accurate in patients with extremes of muscle mass, extra-renal metabolism of creatine, excessive creatine ingestion, or following therapy that affects renal tubular secretion. Ethanol percent <0.010 NINF - 0.010 % [facility] Ethanolamine [Mass/Vol] <10 NINF - 10 mg/dL [facility] Glucose [Mass/Vol] 248 mg/dL High 74 - 99 mg/dL [facility] HCO3 (Bld) [Moles/Vol] 25.7 mmol/L 24 - 30 mmol/L [facility] Hematocrit (Bld) [Volume fraction] 42.2 % 40.7 - 50.3 % [facility] Hemoglobin (Bld) [Mass/Vol] 13.6 g/dL 13.0 - 17.0 g/dL [facility] INR Coag (PPP) [Relative time] 1 {INR} [facility] Comment on above: Therapeutic Range: Moderate Anticoagulant Intensity: INR = 2.0-3.0 High Anticoagulant Intensity: INR = 2.5-3.5 MCH (RBC) [Entitic mass] 28.9 pg 25.2 - 33.5 pg [facility] MCHC (RBC) [Mass/Vol] 32.2 g/dL 28.4 - 34.8 g/dL [facility] MCV (RBC) [Entitic vol] 89.6 fL 82.6 - 102.9 fL [facility] Nucleated RBC/100 WBC (Bld) [Ratio] 0 % 0.0 per 100 WBC [facility] Oxygen saturation in Blood 55.4 % Low 60.0 - 85.0 % [facility] Oxygen/Inspired gas Respiratory system --on ventilator INFORMATION NOT PROVIDED [facility] pCO2, Geoffrey 42.3 [facility] pH, Geoffrey 7.402 7.320 - 7.420 [facility] Platelet mean volume (Bld) [Entitic vol] 9.9 fL 8.1 - 13.5 fL [facility] Platelets (Bld) [#/Vol] 212 10*3/uL [facility] [employer] PO2, Geoffrey 29.2 Low [facility] Positive Base Excess, Geoffrey 0.8 mmol/L 0.0 - 2.0 mmol/L [facility] Potassium [Moles/Vol] 3.8 mmol/L 3.7 - 5.3 mmol/L [facility] PT Coag (PPP) [Time] 13.3 s [facility] RBC (Bld) [#/Vol] 4.71 10*6/uL 4.21 - 5.77 m/uL [facility] Sodium [Moles/Vol] 136 mmol/L 136 - 145 mmol/L [facility] Urea nitrogen [Mass/Vol] 15 mg/dL 8 - 23 mg/dL [facility] WBC other (Bld) [#/Vol] 9.9 [facility] Trauma Profileon 08-21-2024 Anion gap [Moles/Vol] 12 mmol/L Normal 9-16 [facility] Comment on above: Performed By: #### V D25, ECENZ, B12, ERTPF, FT4, GLYHGB, ALB, TSH #### [employer] [address] [place] [address] Editing Computer Publisher: Brendan Melchor MD Performed By: #### V D25, ECENZ, B12, GLYHGB, ERTPF, FT4, TSH, ALB #### [employer] [address] [place], [place] [phone] Editing Computer Publisher: Brendan Melchor MD Chloride [Moles/Vol] 102 mmol/L Normal 98-107 [facility] Comment on above: Performed By: #### V D25, ECENZ, B12, ERTPF, FT4, GLYHGB, ALB, TSH #### [employer] [address] [place] [address] Editing Computer Publisher: Brendan Melchor MD Performed By: #### V D25, ECENZ, B12, GLYHGB, ERTPF, FT4, TSH, ALB #### [address] [address] [employer] Publisher: Brendan Melchor MD CO2 [Moles/Vol] 22 mmol/L Normal 20-31 [facility] Comment on above: Performed By: #### V D25, ECENZ, B12, ERTPF, FT4, GLYHGB, ALB, TSH #### [address] [address] [employer] Publisher: Brendan Melchor MD Performed By: #### V D25, ECENZ, B12, GLYHGB, ERTPF, FT4, TSH, ALB #### [address] [address] [employer] Publisher: Brendan Melchor MD Creatinine [Mass/Vol] 0.9 mg/dL Normal 0.7-1.2 [facility] Comment on above: Performed By: #### V D25, ECENZ, B12, ERTPF, FT4, GLYHGB, ALB, TSH #### [address] [address] [employer] Publisher: Brendan Melchor MD Performed By: #### V D25, ECENZ, B12, GLYHGB, ERTPF, FT4, TSH, ALB #### [address] [address] Ed[employer] Computer Publisher: Brendan Melchor MD Ethanol [Mass/Vol] mg/dL Normal <10 [facility] Comment on above: Performed By: #### V D25, ECENZ, B12, ERTPF, FT4, GLYHGB, ALB, TSH #### [address] [address] [employer] Computer Publisher: Brendan Melchor MD Performed By: #### V D25, ECENZ, B12, GLYHGB, ERTPF, FT4, TSH, ALB #### [address] [address] [employer] Publisher: Brendan Melchor MD Ethanol percent <0.010 Normal <0.010 [facility] Comment on above: Performed By: #### V D25, ECENZ, B12, ERTPF, FT4, GLYHGB, ALB, TSH #### [address] [id number] [employer] Publisher: Brendan Melchor MD Performed By: #### V D25, ECENZ, B12, GLYHGB, ERTPF, FT4, TSH, ALB #### [address] [phone] [employer] Publisher: Brendan Melchor MD GFR/1.73 sq M.predicted among non-blacks MDRD (S/P/Bld) [Vol rate/Area] 87 mL/min/{1.73_m2} Normal >60 [facility] Comment on above: Result Comment: These results are not intended for use in patients <18 years of age. eGFR results are calculated without a race factor using the 2020 CKD-EPI equation. Careful clinical correlation is recommended, particularly when comparing to results calculated using previous equations. The CKD-EPI equation is less accurate in patients with extremes of muscle mass, extra-renal metabolism of creatine, excessive creatine ingestion, or following therapy that affects renal tubular secretion. Performed By: #### V D25, ECENZ, B12, ERTPF, FT4, GLYHGB, ALB, TSH #### [address] [phone] [employer] Publisher: Brendan Melchor MD Performed By: #### V D25, ECENZ, B12, GLYHGB, ERTPF, FT4, TSH, ALB #### [address] [phone] Ed[employer] Publisher: Brendan Melchor MD Glucose [Mass/Vol] 248 mg/dL High 74-99 [facility] Comment on above: Performed By: #### V D25, ECENZ, B12, ERTPF, FT4, GLYHGB, ALB, TSH #### [address] [address] Editing Computer Publisher: Brendan Melchor MD Performed By: #### V D25, ECENZ, B12, GLYHGB, ERTPF, FT4, TSH, ALB #### [address] [address] Editing Computer Publisher: Brendan Melchor MD Potassium [Moles/Vol] 3.8 mmol/L Normal 3.7-5.3 [facility] Comment on above: Performed By: #### V D25, ECENZ, B12, ERTPF, FT4, GLYHGB, ALB, TSH #### [address] [address] Editing Computer Publisher: Brendan Melchor MD Performed By: #### V D25, ECENZ, B12, GLYHGB, ERTPF, FT4, TSH, ALB #### [address] [address] Editing Computer Publisher: Brendan Melchor MD Sodium [Moles/Vol] 136 mmol/L Normal 136-145 [facility] Comment on above: Performed By: #### V D25, ECENZ, B12, ERTPF, FT4, GLYHGB, ALB, TSH #### [address] [address] [employer] Publisher: Brendan Melchor MD Performed By: #### V D25, ECENZ, B12, GLYHGB, ERTPF, FT4, TSH, ALB #### [address] [address] [employer] Computer Publisher: Brendan Meclhor MD Urea nitrogen [Mass/Vol] 15 mg/dL Normal 8-23 [facility] Comment on above: Performed By: #### V D25, ECENZ, B12, ERTPF, FT4, GLYHGB, ALB, TSH #### [address] [address] [employer] Computer Publisher: Brendan Melchor MD Performed By: #### V D25, ECENZ, B12, GLYHGB, ERTPF, FT4, TSH, ALB #### [address] [address] Editing Computer Publisher: Brendan Melchor MD aPTT Coag (Bld) [Time] 30.9 s Normal 23.0-36.5 [facility] Comment on above: Result Comment: IV Heparin Therapy Range: 66.0-92.0 sec Performed By: #### V D25, ECENZ, B12, ERTPF, FT4, GLYHGB, ALB, TSH #### [place] [id number] Editing Computer Publisher: Brendan Melchor MD Performed By: #### V D25, ECENZ, B12, GLYHGB, ERTPF, FT4, TSH, ALB #### [place] [id number] Ed[employer] Publisher: Brendan Melchor MD INR Coag (PPP) [Relative time] 1.0 {INR} Normal [facility] Comment on above: Result Comment: Therapeutic Range: Moderate Anticoagulant Intensity: INR = 2.0-3.0 High Anticoagulant Intensity: INR = 2.5-3.5 Performed By: #### V D25, ECENZ, B12, ERTPF, FT4, GLYHGB, ALB, TSH #### [place] [id number] Ed[employer] Computer Publisher: Brendan Melchor MD Performed By: #### V D25, ECENZ, B12, GLYHGB, ERTPF, FT4, TSH, ALB #### [address] [address] Editing Computer Publisher: Brendan Melchor MD PT Coag (PPP) [Time] 13.3 s Normal 11.7-14.9 [facility] Comment on above: Performed By: #### V D25, ECENZ, B12, ERTPF, FT4, GLYHGB, ALB, TSH #### [address] [address] Editing Computer Publisher: Brendan Melchor MD Performed By: #### V D25, ECENZ, B12, GLYHGB, ERTPF, FT4, TSH, ALB #### [address] [address] Editing Computer Publisher: Brendan Melchor MD Body Temp. 37.0 Normal [facility] Comment on above: Performed By: #### V D25, ECENZ, B12, ERTPF, FT4, GLYHGB, ALB, TSH #### [place] [address] Editing Computer Publisher: Brendan Melchor MD Performed By: #### V D25, ECENZ, B12, GLYHGB, ERTPF, FT4, TSH, ALB #### [place] [id number] Ed[employer] Computer Publisher: Brendan Melchor MD Carboxy Hgb 1.0 % Normal 0-5 [facility] Comment on above: Result Comment: Reference Range: Non-Smokers 0-2% Average Smoker 2-4% Heavy Smoker <10% Performed By: #### V D25, ECENZ, B12, ERTPF, FT4, GLYHGB, ALB, TSH #### [place] [address] Editing Computer Publisher: Brendan Melchor MD Performed By: #### V D25, ECENZ, B12, GLYHGB, ERTPF, FT4, TSH, ALB #### [address] [address] Editing Computer Publisher: Brendan Melchor MD Erythrocyte distribution width (RBC) [Ratio] 13.2 % Normal 11.8-14.4 [facility] Comment on above: Performed By: #### V D25, ECENZ, B12, ERTPF, FT4, GLYHGB, ALB, TSH #### [address] [phone] Ed[employer] Publisher: Brendan Melchor MD Performed By: #### V D25, ECENZ, B12, GLYHGB, ERTPF, FT4, TSH, ALB #### [address] [phone] [employer] Publisher: Brendan Melchor MD FIO2 INFORMATION NOT PROVIDED Normal [facility] Comment on above: Performed By: #### V D25, ECENZ, B12, ERTPF, FT4, GLYHGB, ALB, TSH #### [place] [address] [employer] Computer Publisher: Brendan Melchor MD Performed By: #### V D25, ECENZ, B12, GLYHGB, ERTPF, FT4, TSH, ALB #### [place] [address] [employer]iting Computer Publisher: Brendan Melchor MD HCO3 (Bld) [Moles/Vol] 25.7 mmol/L Normal 24-30 [facility] Comment on above: Performed By: #### V D25, ECENZ, B12, ERTPF, FT4, GLYHGB, ALB, TSH #### [place] [address] [employer]iting Computer Publisher: Brendan Melchor MD Performed By: #### V D25, ECENZ, B12, GLYHGB, ERTPF, FT4, TSH, ALB #### [place] [id number] [employer] Publisher: Brendan Melchor MD Hematocrit (Bld) [Volume fraction] 42.2 % Normal 40.7-50.3 [facility] Comment on above: Performed By: #### V D25, ECENZ, B12, ERTPF, FT4, GLYHGB, ALB, TSH #### [address] [phone] [employer] Publisher: Brendan Melchor MD Performed By: #### V D25, ECENZ, B12, GLYHGB, ERTPF, FT4, TSH, ALB #### [address] [address] [employer] Publisher: Brendan Melchor MD Hemoglobin (Bld) [Mass/Vol] 13.6 g/dL Normal 13.0-17.0 [facility] Comment on above: Performed By: #### V D25, ECENZ, B12, ERTPF, FT4, GLYHGB, ALB, TSH #### [place] [address] [employer]iting Computer Publisher: Brendan Melchor MD Performed By: #### V D25, ECENZ, B12, GLYHGB, ERTPF, FT4, TSH, ALB #### [place] [address] [employer] Publisher: Brendan Melchor MD MCH (RBC) [Entitic mass] 28.9 pg Normal 25.2-33.5 [facility] Comment on above: Performed By: #### V D25, ECENZ, B12, ERTPF, FT4, GLYHGB, ALB, TSH #### [place] [id number] [employer] Publisher: Brendan Melchor MD Performed By: #### V D25, ECENZ, B12, GLYHGB, ERTPF, FT4, TSH, ALB #### [place] [id number] [employer] Publisher: Brendan Melchor MD MCHC (RBC) [Mass/Vol] 32.2 g/dL Normal 28.4-34.8 [facility] Comment on above: Performed By: #### V D25, ECENZ, B12, ERTPF, FT4, GLYHGB, ALB, TSH #### [address] [address] [employer] Publisher: Brendan Melchor MD Performed By: #### V D25, ECENZ, B12, GLYHGB, ERTPF, FT4, TSH, ALB #### [address] [address] [employer] Publisher: Brendan Melchor MD MCV (RBC) [Entitic vol] 89.6 fL Normal 82.6-102.9 [facility] Comment on above: Performed By: #### V D25, ECENZ, B12, ERTPF, FT4, GLYHGB, ALB, TSH #### [address] [address] [employer] Publisher: Brendan Melchor MD Performed By: #### V D25, ECENZ, B12, GLYHGB, ERTPF, FT4, TSH, ALB #### [address] [address] Ed[employer] Computer Publisher: Brendan Melchor MD NRBC Automated 0.0 per 100 WBC Normal 0.0 [facility] Comment on above: Performed By: #### V D25, ECENZ, B12, ERTPF, FT4, GLYHGB, ALB, TSH #### [address] [address] [employer] Computer Publisher: Brendan Melchor MD Performed By: #### V D25, ECENZ, B12, GLYHGB, ERTPF, FT4, TSH, ALB #### [address] [address] Editing [employer] Publisher: Brendan Melchor MD Oxygen saturation in Blood 55.4 % Low 60.0-85.0 [facility] Comment on above: Performed By: #### V D25, ECENZ, B12, ERTPF, FT4, GLYHGB, ALB, TSH #### [address] [address] Editing Computer Publisher: Brendan Melchor MD Performed By: #### V D25, ECENZ, B12, GLYHGB, ERTPF, FT4, TSH, ALB #### [address] [address] Editing Computer Publisher: Brendan Melchor MD pCO2 42.3 mm Hg Normal 39-55 [facility] Comment on above: Performed By: #### V D25, ECENZ, B12, ERTPF, FT4, GLYHGB, ALB, TSH #### [address] [address] Editing Computer Publisher: Brendan Melchor MD Performed By: #### V D25, ECENZ, B12, GLYHGB, ERTPF, FT4, TSH, ALB #### [address] [address] Editing Computer Publisher: Brendan Melchor MD pH (Bld) 7.402 [pH] Normal 7.320-7.42 0 [facility] Comment on above: Performed By: #### V D25, ECENZ, B12, ERTPF, FT4, GLYHGB, ALB, TSH #### [place] [address] Editing Computer Publisher: Brendan Melchor MD Performed By: #### V D25, ECENZ, B12, GLYHGB, ERTPF, FT4, TSH, ALB #### [place] [address] Editing Computer Publisher: Brendan Melchor MD Platelet mean volume (Bld) [Entitic vol] 9.9 fL Normal 8.1-13.5 [facility] Comment on above: Performed By: #### V D25, ECENZ, B12, ERTPF, FT4, GLYHGB, ALB, TSH #### [address] [address] Editing Computer Publisher: Brendan Melchor MD Performed By: #### V D25, ECENZ, B12, GLYHGB, ERTPF, FT4, TSH, ALB #### [address] [address] Editing Computer Publisher: Brendan Melchor MD Platelets (Bld) [#/Vol] 212 10*3/uL Normal 138-453 [facility] Comment on above: Performed By: #### V D25, ECENZ, B12, ERTPF, FT4, GLYHGB, ALB, TSH #### [address] [address] Editing Computer Publisher: Brendan Melchor MD Performed By: #### V D25, ECENZ, B12, GLYHGB, ERTPF, FT4, TSH, ALB #### [address] [address] Editing Computer Publisher: Brendan Melchor MD pO2 29.2 mm Hg Low 30-50 [facility] Comment on above: Performed By: #### V D25, ECENZ, B12, ERTPF, FT4, GLYHGB, ALB, TSH #### [facility] IEV [address] [place] [address] Editing Computer Publisher: Brendan Melchor MD Performed By: #### V D25, ECENZ, B12, GLYHGB, ERTPF, FT4, TSH, ALB #### [facility] [employer] [address] [place] [address] Editing Computer Publisher: Brendan Melchor MD Positive Base Excess 0.8 mmol/L Normal 0.0-2.0 [facility] Comment on above: Performed By: #### V D25, ECENZ, B12, ERTPF, FT4, GLYHGB, ALB, TSH #### [facility] [address] [place] [address] Editing Computer Publisher: Brendan Melchor MD Performed By: #### V D25, ECENZ, B12, GLYHGB, ERTPF, FT4, TSH, ALB #### [address] [address] Editing Computer Publisher: Brendan Melchor MD RBC (Bld) [#/Vol] 4.71 10*6/uL Normal 4.21-5.77 [facility] Comment on above: Performed By: #### V D25, ECENZ, B12, ERTPF, FT4, GLYHGB, ALB, TSH #### [address] [address] Editing Computer Publisher: Brendan Melchor MD Performed By: #### V D25, ECENZ, B12, GLYHGB, ERTPF, FT4, TSH, ALB #### [address] [address] Editing Computer Publisher: Brendan Melchor MD WBC (Bld) [#/Vol] 9.9 10*3/uL Normal 3.5-11.3 [facility] Comment on above: Performed By: #### V D25, ECENZ, B12, ERTPF, FT4, GLYHGB, ALB, TSH #### [address] [address] Editing Computer Publisher: Brendan Melchor MD Performed By: #### V D25, ECENZ, B12, GLYHGB, ERTPF, FT4, TSH, ALB #### [address] [address] Editing Computer Publisher: Brendan Melchor MD Blood Bank BILL FOR SERVICES PERFORMED Normal [facility] Comment on above: Performed By: #### V D25, ECENZ, B12, ERTPF, FT4, GLYHGB, ALB, TSH #### [address] [address] Editing Computer Publisher: Brendan Melchor MD Performed By: #### V D25, ECENZ, B12, GLYHGB, ERTPF, FT4, TSH, ALB #### [facility] [address] [place] [address] Editing Computer Publisher: Brendan Melchor MD Trop/Myoglobinon 08-21-2024 Myoglobin [Mass/Vol] 91 ng/mL High 28-72 [facility] Comment on above: Performed By: #### V D25, ECENZ, B12, ERTPF, FT4, GLYHGB, ALB, TSH #### [facility] [address] [place] [address] Editing Computer Publisher: Brendan Melchor MD Performed By: #### V D25, ECENZ, B12, GLYHGB, ERTPF, FT4, TSH, ALB #### [facility] [address] [place] [address] Editing Computer Publisher: Brendan Melchor MD Troponin, High Sens 33 ng/L High 0-22 [facility] Comment on above: Result Comment: High Sensitivity Troponin values cannot be compared with other Troponin methodologies. Performed By: #### V D25, ECENZ, B12, ERTPF, FT4, GLYHGB, ALB, TSH #### [facility] [address] [place] [address] Editing Computer Publisher: Brendan Melchor MD Performed By: #### V D25, ECENZ, B12, GLYHGB, ERTPF, FT4, TSH, ALB #### [address] [address] Editing Computer Publisher: Brendan Melchor MD Troponinon 08-21-2024 Interpretation and review of laboratory results Abnormal [facility] Troponin I.cardiac High sensitivity method [Mass/Vol] 32 ng/L High 0 - 22 ng/L [facility] Comment on above: High Sensitivity Tro ponin values cannot be compared with other Troponin methodologies. [facility] Troponin, High Sens 32 ng/L High 0-22 [facility] Comment on above: Result Comment: High Sensitivity Troponin values cannot be compared with other Troponin methodologies. Performed By: #### T ROPI #### [employer] [address] [place] [address] Editing Computer Publisher: Brendan Melchor MD Type + Screenon 08-21-2024 Type + Screen Sample Expiration 08/24/2024,2359 Arm Band Number [id number] ABO/Rh(D) O POSITIVE Antibody Screen NEGATIVE Normal [facility] Comment on above: Performed By: #### T YS #### [facility] [address] [place] [address] Editing Computer Publisher: Brendan Melchor MD Vitamin B12on 08-21-2024 Cobalamin (Vitamin B12) [Mass/Vol] 328 pg/mL 232 - 1245 pg/mL [facility] Cobalamin (Vitamin B12) [Mass/Vol] 328 pg/mL Normal 232-1245 [facility] Comment on above: Performed By: #### V D25, ECENZ, B12, ERTPF, FT4, GLYHGB, ALB, TSH ####[facility] [id number] [place] [address] Lab Director: Brendan Melchor MD Performed By: #### V D25, ECENZ, B12, GLYHGB, ERTPF, FT4, TSH, ALB ####[facility] [address] [place] [address] Lab Director: Brendan Melchor MD Vitamin D 25 Hydroxyon 08-21 25-hydroxyvitamin D3 [Mass/Vol] 28.0 ng/mL Low 30.0 - 100.0 ng/mL [facility] Comment on above: Reference Range: Vitamin D status Range Deficiency <20 ng/mL Mild Deficiency 20-30 ng/mL Sufficiency 30-100 ng/mL Toxicity >100 ng/mL Vitamin D 25 OHon 08-21-2024 Vitamin D 25 OH 28.0 ng/mL Low 30.0-100.0 [facility] Comment on above: Result Comment: Reference Range: Vitamin D status Range Deficiency <20 ng/mL Mild Deficiency 20-30 ng/mL Sufficiency 30-100 ng/mL Toxicity >100 ng/mL Performed By: #### V D25, ECENZ, B12, ERTPF, FT4, GLYHGB, ALB, TSH ####[facility] [address] [place], [place] [id number] lab Director: Brendan Melchor MD Performed By: #### V D25, ECENZ, B12, GLYHGB, ERTPF, FT4, TSH, ALB ####[facility] [address] [place], [place] [id number] lab Director: Brendan Melchor MD Automated basophil %Ordered By: Odalis Anand on 05-11-2023 Basophils/100 WBC (Bld) 0.9 % Normal . [facility] Comment on above: Performed By: #### U A #### [address] Automated basophil countOrde red By: Odalis Anand on 05-11-2023 Basophils (Bld) [#/Vol] 0.1 10*3/uL Normal 0.0-0.2 [facility] Comment on above: Result Comment: PERF ORMED BY: [place] [address] PATHOLOGIST [employer] GABRIELLE NEWMAN M.D. Performed By: #### U A #### [address] Automated blood monocyte cou ntOrdered By: Odalis Anand on 05-11-2023 Monocytes (Bld) [#/Vol] 0.7 10*3/uL Normal 0.0-0.8 [facility] Comment on above: Performed By: #### U A #### [address] Automated eosinophil %Ordere d By: Odalis Anand on 05-11-2023 Eosinophils/100 WBC (Bld) 2.1 % Normal . [facility] Comment on above: Performed By: #### U A #### [address] Automated eosinophil countOr dered By: Odalis Anand on 05-11-2023 Eosinophils (Bld) [#/Vol] 0.2 10*3/uL Normal 0.0-0.45 [facility] Comment on above: Performed By: #### U A #### [address] Automated monocyte %Ordered By: Odalis Anand on 05-11-2023 Monocytes/100 WBC (Bld) 6.7 % Normal . [facility] Comment on above: Performed By: #### U A #### [address] Automated neutrophil %Ordere d By: Odalis Anand on 05-11-2023 Neutrophils/100 WBC (Bld) 75.1 % Normal . [facility] Comment on above: Performed By: #### U A #### [address] Basic Metabolic Panelon 04-14 Creatinine Clr Calc Pharmacy 55.42 Normal [facility] Comment on above: Result Comment: PERF ORMED BY: [place] [address] PATHOLOGIST [employer] GABRIELLE NEWMAN M.D. Performed By: #### U A #### [address] GFR/1.73 sq M.predicted MDRD (S/P/Bld) [Vol rate/Area] mL/min/{1.73_m2} Normal [facility] Comment on above: Performed By: #### U A #### [address] Calcium [Mass/volume] in Ser um or PlasmaOrdered By: Odalis Anand on 05-11-2023 Calcium [Mass/Vol] 7.9 mg/dL Low 8.6-10.3 [facility] Comment on above: Performed By: #### U A #### [address] Capillary blood glucose martin urement by glucometer (mass/volume)Ordered By: Bharat Terrell on 05-11-2023 Glucose [Mass/Vol] 207 mg/dL Normal [facility] Comment on above: Random Glucose Refer ence Range is dependent on time and content of last meal. Glucose of more than 200 mg/dL in a nonstressed, ambulatory subject supports the diagnosis of Diabetes Mellitus. Result Comment: [place] [facility] Glucose Reference Range is dependent on time and content of last meal. Glucose of more than 200 mg/dL in a nonstressed, ambulatory subject supports the diagnosis of Diabetes Mellitus. PERFORMED BY: [place] [address] PATHOLOGIST [employer] GABRIELLE NEWMAN M.D. Performed By: #### U A #### [address] Carbon dioxide, total [Moles /volume] in Serum or PlasmaOrdered By: Odalis Anand on 05-11-2023 CO2 [Moles/Vol] 20.9 mmol/L Low 21.0-31.0 [facility] Comment on above: Performed By: #### U A #### [address] Chloride [Moles/volume] in S frank or PlasmaOrdered By: Odalis Anand on 05-11-2023 Chloride [Moles/Vol] 108 mmol/L High 98-107 [facility] Comment on above: Performed By: #### U A #### [address] Complete Blood Count Auto Di ffon 05-11-2023 Mean Corpuscular HGB Conc 33.5 g/dL Normal 32.5-35.6 [facility] Comment on above: Performed By: #### U A #### [address] NRBC% 0.1 /100{WBC} Normal 0-0.5 [facility] Comment on above: Performed By: #### U A #### [address] Creatinine [Mass/volume] in Serum or PlasmaOrdered By: Odalis Anand on 05-11-2023 Creatinine [Mass/Vol] 1.17 mg/dL Normal 0.70-1.30 [facility] Comment on above: Performed By: #### U A #### [facility] [address] Erythrocyte distribution wid th [Ratio] by Automated countOrdered By: Odalis Kika on 05-11-2023 Erythrocyte distribution width (RBC) [Ratio] 13.8 % Normal 12.0-14.8 [facility] Comment on above: Performed By: #### U A #### [facility] [address] Erythrocytes [#/volume] in B lood by Automated countOrdered By: Odalisrandall Anand on 05-11-2023 RBC (Bld) [#/Vol] 4.23 10*6/uL Normal 3.90-5.60 [facility] Comment on above: Performed By: #### U A #### [address] Glucose Poct Glucometerson 1 Glucose [Mass/Vol] 232 mg/dL Normal [facility] Comment on above: Result Comment: [facility] Glucose Reference Range is dependent on time and content of last meal. Glucose of more than 200 mg/dL in a nonstressed, ambulatory subject supports the diagnosis of Diabetes Mellitus. PERFORMED BY: [place] [address] PATHOLOGIST [employer] GABRIELLE NEWMAN M.D. Performed By: #### G LULS #### Point of Care testing , Glucose [Mass/Vol] 216 mg/dL Normal [facility] Comment on above: Result Comment: [facility] Glucose Reference Range is dependent on time and content of last meal. Glucose of more than 200 mg/dL in a nonstressed, ambulatory subject supports the diagnosis of Diabetes Mellitus. PERFORMED BY: [place] [address] PATHOLOGIST [employer] GABRIELLE NEWMAN M.D. Performed By: #### G LULS #### Point of Care testing , Glucose [Mass/volume] in Ser um or PlasmaOrdered By: Odalis Anand on 05-11-2023 Glucose [Mass/Vol] 255 mg/dL High 70-100 [facility] Comment on above: ADA recommended refe rence rangeRandom Glucose Reference Range is dependent on time and content of last meal. Glucose of more than 200 mg/dL in a nonstressed, ambulatory subject supports the diagnosis of Diabetes Mellitus. Result Comment: [place] Glucose Reference Range is dependent on time and content of last meal. Glucose of more than 200 mg/dL in a nonstressed, ambulatory subject supports the diagnosis of Diabetes Mellitus. ADA recommended reference range Performed By: #### U A #### [address] Hematocrit [Volume Fraction] of Blood by Automated countOrdered By: Odalis Anand on 05-11-2023 Hematocrit (Bld) [Volume fraction] 37.7 % Low 38.8-50.0 [facility] Comment on above: Performed By: #### U A #### [facility] [address] [place] [address] Hemoglobin [Mass/volume] in BloodOrdered By: Odalis Anand on 05-11-2023 Hemoglobin (Bld) [Mass/Vol] 12.6 g/dL Low 13.0-17.0 [facility] Comment on above: Performed By: #### U A #### [facility] [address] [place] [address] Leukocytes [#/volume] correc peter for nucleated erythrocytes in Blood by Automated counOrdered By: Odalis Anand on 05-11-2023 WBC corrected for nucl RBC Auto (Bld) [#/Vol] 10.3 10*3/uL 4.1-10.5 [facility] Leukocytes [#/volume] in Blo od by Automated countOrdered By: Odalis Anand on 05-11-2023 WBC (Bld) [#/Vol] 10.3 10*3/uL Normal 4.1-10.5 [facility] Comment on above: Performed By: #### U A #### [address] Lymphocytes [#/volume] in Bl ood by Automated countOrdered By: Odalis Anand on 05-11-2023 Lymphocytes (Bld) [#/Vol] 1.6 10*3/uL Normal 1.00-4.8 [facility] Comment on above: Performed By: #### U A #### [address] Lymphocytes/100 leukocytes i n Blood by Automated countOrdered By: Odalis Anand on 05-11-2023 Lymphocytes/100 WBC (Bld) 15.2 % Normal . [facility] Comment on above: Performed By: #### U A #### [address] MCH [Entitic mass] by Automa peter countOrdered By: Odalis Anand on 05-11-2023 MCH (RBC) [Entitic mass] 29.8 pg Normal 27.5-35.2 [facility] Comment on above: Performed By: #### U A #### [address] MCHC Auto (RBC) [Mass/Vol]Or dered By: Odalis Anand on 05-11-2023 MCHC (RBC) [Mass/Vol] 33.5 g/dL 32.5-35.6 [facility] MCV [Entitic volume] by Auto mated countOrdered By: Odalis Anand on 05-11-2023 MCV (RBC) [Entitic vol] 89.0 fL Normal 83.5-101 [facility] Comment on above: Performed By: #### U A #### [place] [address] [place] Neutrophils [#/volume] in Bl ood by Automated countOrdered By: Odalis Anand on 05-11-2023 Neutrophils (Bld) [#/Vol] 7.7 10*3/uL Normal 1.8-7.7 [facility] Comment on above: Performed By: #### U A #### [address] [address] [place] No Panel InformationOrdered By: Odalis Anand on 05-11-2023 Estimated GFR (CKD-EPI) > 60.0 mL/Min [facility] Creatinine Clearance (Chem 55.42 [facility] Nucleated erythrocytes [Pres ence] in Blood by Automated countOrdered By: Odalis Anand on 05-11-2023 Nucleated RBC Auto Ql (Bld) 0.1 /100{WBC} 0-0.5 [facility] Platelet mean volume [Entiti c volume] in Blood by Automated countOrdered By: Odalis Anand on 05-11-2023 Platelet mean volume (Bld) [Entitic vol] 9.0 fL Normal 6.6-10.1 [facility] Comment on above: Performed By: #### U A #### [facility] [address] [place] [address] Platelets [#/volume] in Bloo d by Automated countOrdered By: Odalis Anand on 05-11-2023 Platelets (Bld) [#/Vol] 205 10*3/uL Normal 150-450 [facility] Comment on above: Performed By: #### U A #### [facility] [address] [place] [address] Potassium [Moles/volume] in Serum or PlasmaOrdered By: Odalis nAand on 05-11-2023 Potassium [Moles/Vol] 3.8 mmol/L Normal 3.5-5.1 [facility] Comment on above: Performed By: #### U A #### [facility] [address] [place] [address] Serum or plasma anion gap de terminationOrdered By: Odalis Anand on 05-11-2023 Anion gap [Moles/Vol] 9.9 mmol/L Normal 6.0-15.0 [facility] Comment on above: Performed By: #### U A #### [facility] [address] [place] [address] Sodium [Moles/volume] in Ser um or PlasmaOrdered By: Odalis Anand on 05-11-2023 Sodium [Moles/Vol] 135 mmol/L Low 136-145 [facility] Comment on above: Performed By: #### U A #### [facility] [address] [place] [address] Urea nitrogen [Mass/volume] in Serum or PlasmaOrdered By: Odalis Anand on 05-11-2023 Urea nitrogen [Mass/Vol] 25 mg/dL Normal 7-25 [facility] Comment on above: Performed By: #### U A #### [facility] [address] [place], [place] [id number] [facility] XR chest 1V portableon 05-11 XR chest 1V portable [facility] [place] [address] XRay Report Signed Patient: Main Thomas MR#: [id number] : 1945 Acct:[id number] Age/Sex: 77 / M ADM Date: 05/09/23 Loc: Room: [address] [place] [address] Type: ADM IN Attending Dr: Bharat Terrell DO Copies to: DO Odalis Holt APRN Ordering Provider: Odalis Anand APRN Date of Service: 05/11/23 XR/XR chest 1V portable: Dyspnea Plain film chest Single view HISTORY: Shortness of breath. COMPARISON: 12/30/2021 FINDINGS: SUPPORT DEVICES: None POSTSURGICAL CHANGES: Stable HEART: Within normal limits PULMONARY MARYLU: Within normal limits MEDIASTINUM: Unremarkable LUNGS AND PLEURA: No acute lung process, pleural effusion or pneumothorax identified. Similar mild basilar parenchymal changes. BONY STRUCTURES: Intact ADDITIONAL FINDINGS None XR/XR chest 1V portable IMPRESSION: No acute process. Similar mild basilar parenchymal densities. Impression dictated by: Thang Huerta M.D.05/11/2023 2:06 PM Dictation Location: [place] [address] Transcribed By: [facility] 05/11/23 140 Dictated By: Thang Huerta DO 05/11/231404 Signed By: 05/11/23 140 Normal [facility] ECG 12 lead ECGon 05-10-2023 ECG 12 lead ECG [facility] [address] [place] [id number] Electrocardiograph Report Signed Patient: Main Thomas MR#: [id number] : 1945 Acct:[id number] Age/Sex: 77 / M ADM Date: 05/09/23 Loc: 4 Room: [address] [place] [address] Type: ADM IN Attending Dr: Bharat Terrell DO Ordering Provider: Samuel Donald MD Date of Service: 05/10/23 ECG/ECG 12 lead ECG: surgery Copies to: Test Reason : Blood Pressure : / mmHG Vent. 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) Anterior infarct (cited on or before 30-DEC-2021) Prolonged QT Abnormal ECG When compared with ECG of 30-DEC-2021 07:09, Significant changes have occurred Confirmed by THANG BARON DO ([id number]) on 05/10/2023 12:45:37 PM Referred By: Electronically Signed By:THANG BARON DO Transcribed By: MUS Signed By Thang Baron DO 05/10 1245 Normal [facility] Glucose Poct Glucometerson 1 Glucose [Mass/Vol] 256 mg/dL Normal [facility] Comment on above: Result Comment: [facility] Glucose Reference Range is dependent on time and content of last meal. Glucose of more than 200 mg/dL in a nonstressed, ambulatory subject supports the diagnosis of Diabetes Mellitus. PERFORMED BY: [address] [address] PATHOLOGIST [employer] GABRIELLE NEWMAN M.D. Performed By: #### G LULS #### Point of Care testing , Commemt1 Glu2: Cleaned Meter Normal [facility] Comment on above: Result Comment: PERF ORMED BY: [address] [address] PATHOLOGIST [employer] GABRIELLE NEWMAN M.D. Performed By: #### B MP, ESR, CBC, CRP #### [address] Glucose [Mass/Vol] 183 mg/dL Normal [facility] Comment on above: Result Comment: [place] [facility] Glucose Reference Range is dependent on time and content of last meal. Glucose of more than 200 mg/dL in a nonstressed, ambulatory subject supports the diagnosis of Diabetes Mellitus. Performed By: #### B MP, ESR, CBC, CRP #### [address] Commemt1 Glu2: Cleaned Meter Normal [facility] Comment on above: Result Comment: PERF ORMED BY: [place] [address] PATHOLOGIST [employer] LE[employer] GABRIELLE NEWMAN M.D. Performed By: #### G LULS #### Point of Care testing , Glucose [Mass/Vol] 233 mg/dL Normal [facility] Comment on above: Result Comment: [place] [facility] Glucose Reference Range is dependent on time and content of last meal. Glucose of more than 200 mg/dL in a nonstressed, ambulatory subject supports the diagnosis of Diabetes Mellitus. Performed By: #### G LULS #### Point of Care testing , Commemt1 Glu2: Cleaned Meter Normal [facility] Comment on above: Performed By: #### G LULS #### Point of Care testing , Commemt2 WILL NOTIFY DR/RN Normal [facility] Comment on above: Result Comment: PERF ORMED BY: [place] [address] PATHOLOGIST [employer] GABRIELLE NEWMAN M.D. Performed By: #### G LULS #### Point of Care testing , Glucose [Mass/Vol] 214 mg/dL Normal [facility] Comment on above: Result Comment: [place] [facility] Glucose Reference Range is dependent on time and content of last meal. Glucose of more than 200 mg/dL in a nonstressed, ambulatory subject supports the diagnosis of Diabetes Mellitus. Performed By: #### G LULS #### Point of Care testing , Commemt1 Glu2: Cleaned Meter Normal [facility] Comment on above: Result Comment: PERF ORMED BY: [place] [address] PATHOLOGIST [employer] GABRIELLE NEWMAN M.D. Performed By: #### U A #### [place] [address] [place] Glucose [Mass/Vol] 208 mg/dL Normal [facility] Comment on above: Result Comment: [place] [facility] Glucose Reference Range is dependent on time and content of last meal. Glucose of more than 200 mg/dL in a nonstressed, ambulatory subject supports the diagnosis of Diabetes Mellitus. Performed By: #### U A #### [address] Glucose [Mass/Vol] 215 mg/dL Normal [facility] Comment on above: Result Comment: [place] [facility] Glucose Reference Range is dependent on time and content of last meal. Glucose of more than 200 mg/dL in a nonstressed, ambulatory subject supports the diagnosis of Diabetes Mellitus. PERFORMED BY: [place] [address] PATHOLOGIST [employer] GABRIELLE NEWMAN M.D. Performed By: #### G LULS #### Point of Care testing , No Panel InformationOrdered By: Bharat Terrell on 05-10-2023 Bedside Glucose Comment Glu2: cleaned meter [facility] Bedside Glucose #2 Comment [address] dr/rn [facility] A1C with Estimated Average G deannajaswinder 05-09-2023 Glucose [Mass/Vol] 237 mg/dL Normal [facility] Comment on above: Result Comment: PERF ORMED BY: [place] [address] PATHOLOGIST [employer] GABRIELLE NEWMAN M.D. Performed By: #### G LULS #### Point of Care testing , Activated partial thrombopla stin time (aPTT) in platelet poor plasma by coagulation aOrdered By: Radha Kim on 05-09-2023 aPTT Coag (PPP) [Time] 29.1 s 25.1-36.5 [facility] Comment on above: A hematocrit value g reater than 55% may lead to inaccurate results in coagulation testing. Patients having hematocrit values >55% require a special collection tube for coagulation studies. Please contact the laboratory at [phone] for redraw instructions. Alanine aminotransferase [En zymatic activity/volume] in Serum or PlasmaOrdered By: Tara Rodney on 05-09-2023 ALT [Catalytic activity/Vol] 5 U/L Low 7-52 [facility] Comment on above: Performed By: #### G LULS #### Point of Care testing , Albumin [Mass/volume] in Ser um or Plasma by Bromocresol green (BCG) dye binding methoOrdered By: Tara Rodney on 05-09-2023 Albumin BCG dye [Mass/Vol] 3.3 g/dL 3.5-5.7 [facility] Alkaline phosphatase [Enzyma tic activity/volume] in Serum or PlasmaOrdered By: Tara Rodney on 05-09-2023 ALP [Catalytic activity/Vol] 104 U/L Normal 34-104 [facility] Comment on above: Performed By: #### G LULS #### Point of Care testing , Aspartate aminotransferase [ Enzymatic activity/volume] in Serum or PlasmaOrdered By: Tara Rodney on 05-09-2023 AST [Catalytic activity/Vol] 8 U/L Low 13-39 [facility] Comment on above: Performed By: #### G LULS #### Point of Care testing , Automated urine color determ inationOrdered By: Radha Kim on 05-09-2023 Color (U) Yellow Normal Yellow [facility] Comment on above: Order Comment: Name Collection Type:: Clean-Voided Midstream Performed By: #### U A #### [address] Basic Metabolic Panelon 2 Anion gap [Moles/Vol] 14.4 mmol/L Normal 6.0-15.0 [facility] Comment on above: Performed By: #### G LULS #### Point of Care testing , Calcium [Mass/Vol] 8.3 mg/dL Low 8.6-10.3 [facility] Comment on above: Performed By: #### G LULS #### Point of Care testing , Chloride [Moles/Vol] 101 mmol/L Normal 98-107 [facility] Comment on above: Performed By: #### G LULS #### Point of Care testing , CO2 [Moles/Vol] 25.2 mmol/L Normal 21.0-31.0 [facility] Comment on above: Performed By: #### G LULS #### Point of Care testing , Creatinine [Mass/Vol] 1.88 mg/dL High 0.70-1.30 [facility] Comment on above: Performed By: #### G LULS #### Point of Care testing , Creatinine Clr Calc Pharmacy 34.49 Normal [facility] Comment on above: Performed By: #### G LULS #### Point of Care testing , GFR/1.73 sq M.predicted MDRD (S/P/Bld) [Vol rate/Area] 36.116 mL/min/{1.73_m2} Normal [facility] Comment on above: Performed By: #### G LULS #### Point of Care testing , Glucose [Mass/Vol] 366 mg/dL High 70-100 [facility] Comment on above: Result Comment: [facility] Glucose Reference Range is dependent on time and content of last meal. Glucose of more than 200 mg/dL in a nonstressed, ambulatory subject supports the diagnosis of Diabetes Mellitus. ADA recommended reference range Performed By: #### G LULS #### Point of Care testing , Potassium [Moles/Vol] 4.6 mmol/L Normal 3.5-5.1 [facility] Comment on above: Performed By: #### G LULS #### Point of Care testing , Sodium [Moles/Vol] 136 mmol/L Normal 136-145 [facility] Comment on above: Performed By: #### G LULS #### Point of Care testing , Urea nitrogen [Mass/Vol] 26 mg/dL High 7-25 [facility] Comment on above: Performed By: #### G LUKEYSHA #### Point of Care testing , Bilirubin Test strip Ql (U)O rdered By: Radha Kim on 05-09-2023 Bilirubin Ql (U) Negative Negative [facility] Bilirubin.direct [Mass/volum e] in Serum or PlasmaOrdered By: Tara Rodney on 05-09-2023 Bilirubin.direct [Mass/Vol] 0.10 mg/dL 0.03-0.18 [facility] Bilirubin.total [Mass/volume ] in Serum or PlasmaOrdered By: Tara Rodney on 05-09-2023 Bilirubin [Mass/Vol] 0.8 mg/dL Normal 0.3-1.0 [facility] Comment on above: Performed By: #### G STEPH #### Point of Care testing , Cholesterol [Mass/volume] in Serum or PlasmaOrdered By: Radha Kim on 05-09-2023 Cholesterol [Mass/Vol] 199 mg/dL Normal 140-200 [facility] Comment on above: Chol less than 200 m g/dl low riskChol 201-239 mg/dl borderline riskChol 240 mg/dl and greater high risk Result Comment: Chol less than 200 mg/dl low risk Chol 201-239 mg/dl borderline risk Chol 240 mg/dl and greater high risk Performed By: #### G STEPH #### Point of Care testing , Cholesterol in LDL Calc [Mas s/Vol]Ordered By: Radha Kim on 05-09-2023 Cholesterol in LDL [Mass/Vol] 121 mg/dL 0-100 [facility] Comment on above: LDL ATP III CLASSIFI CATIONLDL less than 100 mg/dL OptimalLDL 100-129 mg/dL Near or above optimalLDL 130-159 mg/dL Borderline highLDL 160-189 mg/dL HighLDL greater than 189 mg/dL Very high Cholesterol in VLDL Calc [Ma ss/Vol]Ordered By: Radha Kim on 05-09-2023 Cholesterol in VLDL [Mass/Vol] 41 mg/dL [facility] Complete Blood Count Auto Di ffon 05-09-2023 Basophils (Bld) [#/Vol] 0.1 10*3/uL Normal 0.0-0.2 [facility] Comment on above: Result Comment: PERF ORMED BY: [facility] [place] [address] PATHOLOGIST [employer] GABRIELLE NEWMAN M.D. Performed By: #### G LULS #### Point of Care testing , Basophils/100 WBC (Bld) 0.5 % Normal . [facility] Comment on above: Performed By: #### G LULS #### Point of Care testing , Eosinophils (Bld) [#/Vol] 0.1 10*3/uL Normal 0.0-0.45 [facility] Comment on above: Performed By: #### G LULS #### Point of Care testing , Eosinophils/100 WBC (Bld) 1.2 % Normal . [facility] Comment on above: Performed By: #### G LULS #### Point of Care testing , Erythrocyte distribution width (RBC) [Ratio] 13.8 % Normal 12.0-14.8 [facility] Comment on above: Performed By: #### G LULS #### Point of Care testing , Hematocrit (Bld) [Volume fraction] 40.2 % Normal 38.8-50.0 [facility] Comment on above: Performed By: #### G LULS #### Point of Care testing , Hemoglobin (Bld) [Mass/Vol] 13.5 g/dL Normal 13.0-17.0 [facility] Comment on above: Performed By: #### G LULS #### Point of Care testing , Lymphocytes (Bld) [#/Vol] 1.1 10*3/uL Normal 1.00-4.8 [facility] Comment on above: Performed By: #### G LULS #### Point of Care testing , Lymphocytes/100 WBC (Bld) 9.5 % Normal . [facility] Comment on above: Performed By: #### G LULS #### Point of Care testing , MCH (RBC) [Entitic mass] 30.0 pg Normal 27.5-35.2 [facility] Comment on above: Performed By: #### G LULS #### Point of Care testing , MCV (RBC) [Entitic vol] 89.2 fL Normal 83.5-101 [facility] Comment on above: Performed By: #### G LULS #### Point of Care testing , Mean Corpuscular HGB Conc 33.7 g/dL Normal 32.5-35.6 [facility] Comment on above: Performed By: #### G LULS #### Point of Care testing , Monocytes (Bld) [#/Vol] 0.9 10*3/uL High 0.0-0.8 [facility] Comment on above: Performed By: #### G LULS #### Point of Care testing , Monocytes/100 WBC (Bld) 7.6 % Normal . [facility] Comment on above: Performed By: #### G LULS #### Point of Care testing , Neutrophils (Bld) [#/Vol] 9.3 10*3/uL High 1.8-7.7 [facility] Comment on above: Performed By: #### G LULS #### Point of Care testing , Neutrophils/100 WBC (Bld) 81.2 % Normal . [facility] Comment on above: Performed By: #### G LULS #### Point of Care testing , NRBC% 0.1 /100{WBC} Normal 0-0.[address] [facility] Comment on above: Performed By: #### G LULS #### Point of Care testing , Platelet mean volume (Bld) [Entitic vol] 8.5 fL Normal 6.6-10.1 [facility] Comment on above: Performed By: #### G LULS #### Point of Care testing , Platelets (Bld) [#/Vol] 207 10*3/uL Normal 150-450 [facility] Comment on above: Performed By: #### G LULS #### Point of Care testing , RBC (Bld) [#/Vol] 4.51 10*6/uL Normal 3.90-5.60 [facility] Comment on above: Performed By: #### G LULS #### Point of Care testing , WBC (Bld) [#/Vol] 11.4 10*3/uL High 4.1-10.5 [facility] Comment on above: Performed By: #### G LULS #### Point of Care testing , Glucose Poct Glucometerson 1 07-10-2022 Glucose [Mass/Vol] 298 mg/dL Normal [facility] Comment on above: Result Comment: [place] Glucose Reference Range is dependent on time and content of last meal. Glucose of more than 200 mg/dL in a nonstressed, ambulatory subject supports the diagnosis of Diabetes Mellitus. PERFORMED BY: [place] [address] PATHOLOGIST [employer] GABRIELLE NEWMAN M.D. Performed By: #### G LULS #### Point of Care testing , Glucose [Mass/Vol] 251 mg/dL Normal [facility] Comment on above: Result Comment: [facility] Glucose Reference Range is dependent on time and content of last meal. Glucose of more than 200 mg/dL in a nonstressed, ambulatory subject supports the diagnosis of Diabetes Mellitus. PERFORMED BY: [place] [address] PATHOLOGIST [employer] GABRIELLE NEWMAN M.D. Performed By: #### U A #### [address] Glucose [Mass/Vol] 342 mg/dL Normal [facility] Comment on above: Result Comment: [facility] Glucose Reference Range is dependent on time and content of last meal. Glucose of more than 200 mg/dL in a nonstressed, ambulatory subject supports the diagnosis of Diabetes Mellitus. PERFORMED BY: [place] [address] PATHOLOGIST [employer] LE[employer] GABRIELLE NEWMAN M.D. Performed By: #### U A #### [address] Glucose [Mass/Vol] 323 mg/dL Normal [facility] Comment on above: Result Comment: [facility] Glucose Reference Range is dependent on time and content of last meal. Glucose of more than 200 mg/dL in a nonstressed, ambulatory subject supports the diagnosis of Diabetes Mellitus. PERFORMED BY: [facility] [address] [place] [address] PATHOLOGIST [employer] GABRIELLE NEWMAN M.D. Performed By: #### U A #### [address] Glucose mean value [Mass/vol ume] in Blood Estimated from glycated hemoglobinOrdered By: Radha Kim on 05-09-2023 Average glucose Estimated from glycated hemoglobin (Bld) [Mass/Vol] 237 mg/dL [facility] Hemoglobin A1c percentageOrd ered By: Radha Kim on 05-09-2023 HbA1c (Bld) [Mass fraction] 9.9 % High 4.3-5.6 [facility] Comment on above: Increased risk for d iabetes: 5.7 - 6.4diabetes: >6.4glycemic control for adults with diabetes: <7.0 Result Comment: Incr eased risk for diabetes: 5.7 - 6.4 diabetes: >6.4 glycemic control for adults with diabetes: <7.0 Performed By: #### G LULS #### Point of Care testing , Hepatic Panelon 05-09-2023 Albumin [Mass/Vol] 3.3 g/dL Low 3.5-5.7 [facility] Comment on above: Performed By: #### G LULS #### Point of Care testing , Bilirubin,Indirect 0.7 mg/dL Normal [facility] Comment on above: Performed By: #### G LULS #### Point of Care testing , Bilirubin.indirect [Mass/Vol] 0.10 mg/dL Normal 0.03-0.18 [facility] Comment on above: Performed By: #### G LULS #### Point of Care testing , INR in Platelet poor plasma by Coagulation assayOrdered By: Radha Kim on 05-09-2023 INR Coag (PPP) [Relative time] 1.1 {INR} Normal [facility] Comment on above: INR Therapeutic Rang e A) Pre- and Peroperative OAT started two weeks before surgery. NOT HIP SURGERY: 1.5 - 2.5 HIP SURGERY: 2 - 3B) Primary and secondary prevention of venous THROMBOSIS: 2 - 3C) Active venous thrombosis, pulmonary embolismand prevention of recurrent venous thrombosis: 2 - 3D) Prevention of arterial thromboembolismincluding patients with mechanical heart valves: 3 - 4.5 Result Comment: INR Therapeutic Range A) Pre- and Peroperative OAT started two weeks before surgery. NOT HIP SURGERY: 1.5 - 2.5 HIP SURGERY: 2 - 3 B) Primary and secondary prevention of venous THROMBOSIS: 2 - 3 C) Active venous thrombosis, pulmonary embolism and prevention of recurrent venous thrombosis: 2 - 3 D) Prevention of arterial thromboembolism including patients with mechanical heart valves: 3 - 4.5 Performed By: #### G LULS #### Point of Care testing , Ketones Auto test strip (U) [Mass/Vol]Ordered By: Radha Kim on 05-09-2023 Ketones (U) [Mass/Vol] Negative Negative [facility] Lipid Panelon 05-09-2023 LDL Cholesterol,Calculated 121 mg/dL High 0-100 [facility] Comment on above: Result Comment: LDL ATP III CLASSIFICATION LDL less than 100 mg/dL Optimal LDL 100-129 mg/dL Near or above optimal LDL 130-159 mg/dL Borderline high LDL 160-189 mg/dL High LDL greater than 189 mg/dL Very high Performed By: #### G LULS #### Point of Care testing , Triglyceride w/Reflex 208 mg/dL High 0-149 [facility] Comment on above: Result Comment: TRIG ATP III CLASSIFICATION TRIG less than 150 mg/dL Normal TRIG 150-199 mg/dL Borderline high TRIG 200-500 mg/dL High TRIG greater than 500 mg/dL Very high Standard traceable to the Center for Disease Conrtrol and Prevention (CDC) test method. Performed By: #### G LULS #### Point of Care testing , VLDL CHOLESTEROL 41 mg/dL Normal [facility] Comment on above: Performed By: #### G LULS #### Point of Care testing , Magnesium [Mass/volume] in S frank or PlasmaOrdered By: Radha Kim on 05-09-2023 Magnesium [Mass/Vol] 1.7 mg/dL Low 1.9-2.7 [facility] Comment on above: Performed By: #### G LULS #### Point of Care testing , Nitrite Test strip Ql (U)Ord ered By: Radha Kim on 05-09-2023 Nitrite Ql (U) Negative Negative [facility] Partial Thromboplastin Timeo n 05-09-2023 aPTT Coag (Bld) [Time] 29.1 s Normal 25.1-36.5 [facility] Comment on above: Result Comment: A he matocrit value greater than 55% may lead to inaccurate results in coagulation testing. Patients having hematocrit values >55% require a special collection tube for coagulation studies. Please contact the laboratory at [phone] for redraw instructions. PERFORMED BY: [facility] [address] [place] [address] PATHOLOGIST [employer] GABRIELLE NEWMAN M.D. Performed By: #### G LULS #### Point of Care testing , Protein Auto test strip (U) [Mass/Vol]Ordered By: Radha Kim on 05-09-2023 Protein (U) [Mass/Vol] Negative Negative [facility] Protein [Mass/volume] in Ser um or PlasmaOrdered By: Tara Rodney on 05-09-2023 Protein [Mass/Vol] 6.3 g/dL Low 6.4-8.9 [facility] Comment on above: Performed By: #### G LULS #### Point of Care testing , Prothrombin time (PT)Ordered By: Radha Kim on 05-09-2023 PT Coag (PPP) [Time] 12.5 s Normal 9.0-12.9 [facility] Comment on above: A hematocrit value g reater than 55% may lead to inaccurate results in coagulation testing. Patients having hematocrit values >55% require a special collection tube for coagulation studies. Please contact the laboratory at [phone] for redraw instructions. Result Comment: A he matocrit value greater than 55% may lead to inaccurate results in coagulation testing. Patients having hematocrit values >55% require a special collection tube for coagulation studies. Please contact the laboratory at [phone] for redraw instructions. Performed By: #### G LULS #### Point of Care testing , Serum globulin measurement b y calculation (mass/volume)Ordered By: Tara Rodney on 05-09-2023 Globulin (S) [Mass/Vol] 3.0 g/dL Normal [facility] Comment on above: Performed By: #### G LULS #### Point of Care testing , Serum or plasma albumin/glob ulin mass ratioOrdered By: Tara Rodney on 05-09-2023 Albumin/Globulin [Mass ratio] 1.1 {ratio} Normal [facility] Comment on above: Performed By: #### G LULS #### Point of Care testing , Serum or plasma high density lipoprotein (HDL) cholesterol measurementOrdered By: Radha Kim on 05-09-2023 Cholesterol in HDL [Mass/Vol] 36 mg/dL Normal 23-92 [facility] Comment on above: HDL CHOL ATP-III CLA SSIFICATION Cardiovascular RiskHDL > or equal to 60 mg/dL LOWHDL < 40 mg/dL HIGH Result Comment: HDL CHOL ATP-III CLASSIFICATION Cardiovascular Risk HDL > or equal to 60 mg/dL LOW HDL < 40 mg/dL HIGH Performed By: #### G LULS #### Point of Care testing , Serum or plasma non-glucuron idated bilirubin measurement (mass/volume)Ordered By: Tara Rodney on 05-09-2023 Bilirubin.indirect [Mass/Vol] 0.7 mg/dL [facility] Serum or plasma total choles terol/high density lipoprotein (HDL) cholesterol mass ratOrdered By: Radha Kim on 05-09-2023 Cholesterol.total/Chol esterol in HDL [Mass ratio] 5.5 {ratio} Normal <5.0 [facility] Comment on above: Result Comment: PERF ORMED BY: [facility] [address] [place] [address] PATHOLOGIST [employer] LEAD GABRIELLE NEWMAN M.D. Performed By: #### G LULS #### Point of Care testing , Specific gravity Auto test s trip (U) [Rel density]Ordered By: Radha Kim on 05-09-2023 Specific gravity (U) [Rel density] 1.024 1.001-1.03 0 [facility] Triglyceride [Mass/volume] i n Serum or PlasmaOrdered By: Radha Kim on 05-09-2023 Triglyceride [Mass/Vol] 208 mg/dL 0-149 [facility] Comment on above: TRIG ATP III CLASSIF ICATIONTRIG less than 150 mg/dL NormalTRIG 150-199 mg/dL Borderline highTRIG 200-500 mg/dL High TRIG greater than 500 mg/dL Very highStandard traceable to the Center for Disease Conrtrol and Prevention (CDC) test method. Urinalysison 05-09-2023 Appearance (U) Clear Normal Clear [facility] Comment on above: Order Comment: Name Collection Type:: Clean-Voided Midstream Performed By: #### U A #### [address] Bilirubin,Urine Negative Normal Negative [facility] Comment on above: Order Comment: Name Collection Type:: Clean-Voided Midstream Performed By: #### U A #### [address] Glucose Ql (U) 500 mg/dL High Normal [facility] Comment on above: Order Comment: Name Collection Type:: Clean-Voided Midstream Performed By: #### U A #### [address] Ketones Ql (U) Negative Normal Negative [facility] Comment on above: Order Comment: Name Collection Type:: Clean-Voided Midstream Performed By: #### U A #### [place] [address] [place] Leukocyte esterase Test strip Ql (U) Negative Normal Negative [facility] Comment on above: Order Comment: Name Collection Type:: Clean-Voided Midstream Performed By: #### U A #### [place] [address] [place] Nitrite,Urine Negative Normal Negative [facility] Comment on above: Order Comment: Name Collection Type:: Clean-Voided Midstream Performed By: #### U A #### [place] [address] Occult Blood,Urine Negative Normal Negative [facility] Comment on above: Order Comment: Name Collection Type:: Clean-Voided Midstream Result Comment: PERF ORMED BY: [place] [address] PATHOLOGIST [employer] LE[employer] GABRIELLE NEWMAN M.D. Performed By: #### U A #### [address] Protein,Urine Negative Normal Negative [facility] Comment on above: Order Comment: Name Collection Type:: Clean-Voided Midstream Performed By: #### U A #### [address] Specificy [place],Urine 1.024 Normal 1.001-1.03 0 [facility] Comment on above: Order Comment: Name Collection Type:: Clean-Voided Midstream Performed By: #### U A #### [address] Urobilinogen,Urine Normal Normal Normal [facility] Comment on above: Order Comment: Name Collection Type:: Clean-Voided Midstream Performed By: #### U A #### [address] Urine clarity by refractomet ry automatedOrdered By: Radha Kim on 05-09-2023 Clarity Refractometry automated (U) Clear Clear [facility] Urine glucose measurement by automated test strip (mass/volume)Ordered By: Radha Kim on 05-09-2023 Glucose Auto test strip (U) [Mass/Vol] 500 mg/dL Normal [facility] Urine hemoglobin detection b y automated test stripOrdered By: Radha Kim on 05-09-2023 Hemoglobin Auto test strip Ql (U) Negative Negative [facility] Urine leukocyte esterase det ection by automated test stripOrdered By: Radha Kim on 05-09-2023 Leukocyte esterase Auto test strip Ql (U) Negative Negative [facility] Urine pH measurement by auto mated test stripOrdered By: Radha Kim on 05-09-2023 pH (U) 5.0 [pH] Normal 5.0-9.0 [facility] Comment on above: Order Comment: Name Collection Type:: Clean-Voided Midstream Performed By: #### U A #### [place] [id number] [facility] Urobilinogen Auto test strip (U) [Mass/Vol]Ordered By: Radha Kim on 05-09-2023 Urobilinogen (U) [Mass/Vol] Normal mg/dL Normal [facility] XR foot LT min 3V*on 023 XR foot LT min 3V* [facility] [place] [address] [place] [address] XRay Report Signed Patient: Main [place] MR#: [id number] : 1945 Acct:[id number] Age/Sex: 77 / M ADM Date: 05/09/23 Loc: Room: [address] [place] [address] Type: ADM IN Attending Dr: Bharat Terrell DO Copies to: DO Bharat Hdz DO Ordering Provider: Silvestre Urbina DO Date of Service: 05/08/23 XR/XR foot LT min 3V*: foot ulcer LEFT FOOT - 3 views CLINICAL DATA: Necrosis at the left fourth toe and cyanosis of the foot COMPARISON: 05/17/2021 AP, lateral and oblique views were obtained. There is osteopenia. There is no acute fracture or dislocation. There are no obvious bony destruction within limits of positioning of the toes an technique. There are no significant soft tissue abnormalities. There is atherosclerotic plaque involving vessels at the ankle and foot. XR/XR foot LT min 3V* IMPRESSION: NO ACUTE BONY FINDINGS. Impression dictated by: Daniela Serna M.D.05/09/2023 8:04 AM Dictation Location: [place] [address] Transcribed By: [facility] 05/09/23803 Dictated By: Daniela Serna MD 05/09/23 08 Signed By: 05/09/23 08 Normal [facility] Automated basophil %Ordered By: Silvestre Urbina on 12-27-2023 Basophils/100 WBC (Bld) 0.6 % Normal . [facility] Comment on above: Performed By: #### B MP, ESR, CBC, CRP #### [address] Automated basophil countOrde red By: Silvestre Urbina on 05-08-2023 Basophils (Bld) [#/Vol] 0.1 10*3/uL Normal 0.0-0.2 [facility] Comment on above: Performed By: #### B MP, ESR, CBC, CRP #### [address] Automated blood monocyte cou ntOrdered By: Silvestre Urbina on 05-08-2023 Monocytes (Bld) [#/Vol] 0.8 10*3/uL Normal 0.0-0.8 [facility] Comment on above: Performed By: #### B MP, ESR, CBC, CRP #### [address] Automated eosinophil %Ordere d By: Silvesrte Urbina on 05-08-2023 Eosinophils/100 WBC (Bld) 0.3 % Normal . [facility] Comment on above: Performed By: #### B MP, ESR, CBC, CRP #### [address] Automated eosinophil countOr dered By: Silvestre Urbina on 05-08-2023 Eosinophils (Bld) [#/Vol] 0.0 10*3/uL Normal 0.0-0.45 [facility] Comment on above: Performed By: #### B MP, ESR, CBC, CRP #### [address] Automated monocyte %Ordered By: Silvestre Urbina on 05-08-2023 Monocytes/100 WBC (Bld) 5.8 % Normal . [facility] Comment on above: Performed By: #### B MP, ESR, CBC, CRP #### [address] Automated neutrophil %Ordere d By: Silvestre Urbina on 05-08-2023 Neutrophils/100 WBC (Bld) 86.0 % Normal . [facility] Comment on above: Performed By: #### B MP, ESR, CBC, CRP #### [facility] [address] [place] [address] Basic Metabolic Panelon 04-13 Creatinine Clr Calc Pharmacy 38.72 Normal [facility] Comment on above: Performed By: #### B MP, ESR, CBC, CRP #### [address] GFR/1.73 sq M.predicted MDRD (S/P/Bld) [Vol rate/Area] 36.583 mL/min/{1.73_m2} Normal [facility] Comment on above: Performed By: #### B MP, ESR, CBC, CRP #### [address] C reactive protein [Mass/vol ume] in Serum or PlasmaOrdered By: Silvestre Urbina on 05-08-2023 CRP [Mass/Vol] 4.9 mg/dL 0.0-0.5 [facility] C-Reactive Proteinon 023 C-Reactive Protein 4.9 mg/dL High 0.0-0.5 [facility] Comment on above: Result Comment: PERF ORMED BY: [place] [address] PATHOLOGIST [employer] GABRIELLE NEWMAN M.D. Performed By: #### B MP, ESR, CBC, CRP #### [address] Calcium [Mass/volume] in Ser um or PlasmaOrdered By: Silvestre Urbina on 05-08-2023 Calcium [Mass/Vol] 8.9 mg/dL Normal 8.6-10.3 [facility] Comment on above: Performed By: #### B MP, ESR, CBC, CRP #### [address] Carbon dioxide, total [Moles /volume] in Serum or PlasmaOrdered By: Silvestre Urbina on 05-08-2023 CO2 [Moles/Vol] 24.3 mmol/L Normal 21.0-31.0 [facility] Comment on above: Performed By: #### B MP, ESR, CBC, CRP #### [address] Chloride [Moles/volume] in S frank or PlasmaOrdered By: Silvestre Urbina on 05-08-2023 Chloride [Moles/Vol] 101 mmol/L Normal 98-107 [facility] Comment on above: Performed By: #### B MP, ESR, CBC, CRP #### [address] Complete Blood Count Auto Di ffon 05-08-2023 Mean Corpuscular HGB Conc 33.2 g/dL Normal 32.5-35.6 [facility] Comment on above: Performed By: #### B MP, ESR, CBC, CRP #### [address] Monocytes/100 WBC (Bld) 18.13 % Normal 0.00-20.00 [facility] Comment on above: Performed By: #### B MP, ESR, CBC, CRP #### [address] NRBC% 0.1 /100{WBC} Normal 0-0.5 [facility] Comment on above: Performed By: #### B MP, ESR, CBC, CRP #### [address] Creatinine [Mass/volume] in Serum or PlasmaOrdered By: Silvestre Urbina on 05-08-2023 Creatinine [Mass/Vol] 1.86 mg/dL High 0.70-1.30 [facility] Comment on above: Performed By: #### B MP, ESR, CBC, CRP #### [address] Erythrocyte Sedimentation Ra yamilka 05-08-2023 ESR (Bld) [Velocity] 43 mm/h High 0-19 [facility] Comment on above: Result Comment: PERF ORMED BY: [place] [address] PATHOLOGIST [employer] GABRIELLE NEWMAN M.D. Performed By: #### B MP, ESR, CBC, CRP #### [address] Erythrocyte distribution wid th [Ratio] by Automated countOrdered By: Silvestre Urbina on 05-08-2023 Erythrocyte distribution width (RBC) [Ratio] 13.7 % Normal 12.0-14.8 [facility] Comment on above: Performed By: #### B MP, ESR, CBC, CRP #### [address] Erythrocyte sedimentation ra te by Photometric methodOrdered By: Silvestre Urbina on 05-08-2023 ESR Photometric method (Bld) [Velocity] 43 mm/hr 0-19 [facility] Erythrocytes [#/volume] in B lood by Automated countOrdered By: Silvestre Urbina on 05-08-2023 RBC (Bld) [#/Vol] 5.05 10*6/uL Normal 3.90-5.60 [facility] Comment on above: Performed By: #### B MP, ESR, CBC, CRP #### [address] Glucose [Mass/volume] in Ser um or PlasmaOrdered By: Silvestre Urbina on 05-08-2023 Glucose [Mass/Vol] 416 mg/dL High 70-100 [facility] Comment on above: ADA recommended refe rence rangeRandom Glucose Reference Range is dependent on time and content of last meal. Glucose of more than 200 mg/dL in a nonstressed, ambulatory subject supports the diagnosis of Diabetes Mellitus. Result Comment: [place] om Glucose Reference Range is dependent on time and content of last meal. Glucose of more than 200 mg/dL in a nonstressed, ambulatory subject supports the diagnosis of Diabetes Mellitus. ADA recommended reference range Performed By: #### B MP, ESR, CBC, CRP #### [address] Hematocrit [Volume Fraction] of Blood by Automated countOrdered By: Silvestre Urbina on 05-08-2023 Hematocrit (Bld) [Volume fraction] 44.9 % Normal 38.8-50.0 [facility] Comment on above: Performed By: #### B MP, ESR, CBC, CRP #### [address] Hemoglobin [Mass/volume] in BloodOrdered By: Silvestre Urbina on 05-08-2023 Hemoglobin (Bld) [Mass/Vol] 14.9 g/dL Normal 13.0-17.0 [facility] Comment on above: Performed By: #### B MP, ESR, CBC, CRP #### [facility] [address] [place] [address] Leukocytes [#/volume] correc peter for nucleated erythrocytes in Blood by Automated counOrdered By: Silvestre Urbina on 05-08-2023 WBC corrected for nucl RBC Auto (Bld) [#/Vol] 13.3 10*3/uL 4.1-10.5 [facility] Leukocytes [#/volume] in Blo od by Automated countOrdered By: Silvestre Urbina on 05-08-2023 WBC (Bld) [#/Vol] 13.3 10*3/uL High 4.1-10.5 [facility] Comment on above: Performed By: #### B MP, ESR, CBC, CRP #### [facility] [address] [place] [address] Lymphocytes [#/volume] in Bl ood by Automated countOrdered By: Silvestre Urbina on 05-08-2023 Lymphocytes (Bld) [#/Vol] 1.0 10*3/uL Normal 1.00-4.8 [facility] Comment on above: Performed By: #### B MP, ESR, CBC, CRP #### [facility] [address] [place] [address] [place] Lymphocytes/100 leukocytes i n Blood by Automated countOrdered By: Silvestre Urbina on 05-08-2023 Lymphocytes/100 WBC (Bld) 7.3 % Normal . [facility] Comment on above: Performed By: #### B MP, ESR, CBC, CRP #### [facility] [address] [place] [address] MCH [Entitic mass] by Automa peter countOrdered By: Silvestre Urbina on 05-08-2023 MCH (RBC) [Entitic mass] 29.6 pg Normal 27.5-35.2 [facility] Comment on above: Performed By: #### B MP, ESR, CBC, CRP #### [facility] [address] [place] [address] MCHC Auto (RBC) [Mass/Vol]Or dered By: Silvestre Urbina on 05-08-2023 MCHC (RBC) [Mass/Vol] 33.2 g/dL 32.5-35.6 [facility] MCV [Entitic volume] by Auto mated countOrdered By: Silvestre Urbina on 05-08-2023 MCV (RBC) [Entitic vol] 88.9 fL Normal 83.5-101 [facility] Comment on above: Performed By: #### B MP, ESR, CBC, CRP #### [facility] [address] [place] [address] Monocyte distribution width [Entitic volume] in Blood by AutomatedOrdered By: Silvestre Urbina on 05-08-2023 Monocyte distribution width Auto (Bld) [Entitic vol] 18.13 % 0.00-20.00 [facility] Neutrophils [#/volume] in Bl ood by Automated countOrdered By: Silvestre Urbina on 05-08-2023 Neutrophils (Bld) [#/Vol] 11.5 10*3/uL High 1.8-7.7 [facility] Comment on above: Performed By: #### B MP, ESR, CBC, CRP #### [facility] [address] [place] [address] No Panel InformationOrdered By: Silvestre Urbina on 05-08-2023 Estimated GFR (CKD-EPI) 36.583 mL/Min [facility] Creatinine Clearance (Chem 38.72 [facility] Nucleated erythrocytes [Pres ence] in Blood by Automated countOrdered By: Silvestre Urbina on 05-08-2023 Nucleated RBC Auto Ql (Bld) 0.1 /100{WBC} 0-0.5 [facility] Platelet mean volume [Entiti c volume] in Blood by Automated countOrdered By: Silvestre Urbina on 05-08-2023 Platelet mean volume (Bld) [Entitic vol] 8.6 fL Normal 6.6-10.1 [facility] Comment on above: Performed By: #### B MP, ESR, CBC, CRP #### [facility] [address] [place] [address] Platelets [#/volume] in Bloo d by Automated countOrdered By: Silvestre Urbina on 05-08-2023 Platelets (Bld) [#/Vol] 245 10*3/uL Normal 150-450 [facility] Comment on above: Performed By: #### B MP, ESR, CBC, CRP #### [address] Potassium [Moles/volume] in Serum or PlasmaOrdered By: Silvestre Urbina on 05-08-2023 Potassium [Moles/Vol] 4.5 mmol/L Normal 3.5-5.1 [facility] Comment on above: Performed By: #### B MP, ESR, CBC, CRP #### [address] Serum or plasma anion gap de terminationOrdered By: Silvestre Urbina on 05-08-2023 Anion gap [Moles/Vol] 10.2 mmol/L Normal 6.0-15.0 [facility] Comment on above: Performed By: #### B MP, ESR, CBC, CRP #### [address] Sodium [Moles/volume] in Ser um or PlasmaOrdered By: Silvestre Urbina on 05-08-2023 Sodium [Moles/Vol] 131 mmol/L Low 136-145 [facility] Comment on above: Performed By: #### B MP, ESR, CBC, CRP #### [address] Urea nitrogen [Mass/volume] in Serum or PlasmaOrdered By: Silvestre Urbina on 05-08-2023 Urea nitrogen [Mass/Vol] 26 mg/dL High 12-04 [facility] Comment on above: Performed By: #### B MP, ESR, CBC, CRP #### [facility] [address] [id number] [facility] CBC AUTO DIFFon 09-26-2022 BASO # 0.1 103/ul Normal 0.0-0.1 [facility] Comment on above: Performed By: #### C BC #### [facility] [address] [address] [address] Jesus Hill Basophils/100 WBC (Bld) 0.9 % Normal 0.2-2.0 [facility] Comment on above: Performed By: #### C BC #### [facility] [address] [place] [address] Dr. Jesus Hill EO # 0.3 103/ul Normal 0.0-0.7 [facility] Comment on above: Performed By: #### C BC #### [facility] [address] [place] [address] Dr. Jesus Hill Eosinophils/100 WBC (Bld) 4.0 % Normal 0.9-7.0 [facility] Comment on above: Performed By: #### C BC #### [facility] [address] [place] [address] Dr. Jesus Hill Erythrocyte distribution width (RBC) [Ratio] 12.3 % Normal 11.0-15.[address] [facility] Comment on above: Performed By: #### C BC #### [facility] [address] [place] [address] Dr. Jesus Hill Hematocrit (Bld) [Volume fraction] 47.3 % Normal 42.0-54.0 [facility] Comment on above: Performed By: #### C BC #### [facility] [address] [place] [address] Dr. Jesus Hill Hemoglobin (Bld) [Mass/Vol] 15.6 g/dL Normal 14.0-18.[address] [facility] Comment on above: Performed By: #### C BC #### [facility] [address] [place] [address] Dr. Jesus Hill IG # 0.05 10e3/ul Critically high 0.00-0.03 [facility] Comment on above: Performed By: #### C BC #### [facility] [address] [place] [address] Dr. Jesus Hill IG % 0.6 % Critically high 0.0-0.5 [facility] Comment on above: Performed By: #### C BC #### [facility] [address] [place] [address] Dr. Jesus Hill LYMPH # 2.2 103/ul Normal 1.2-3.8 [facility] Comment on above: Performed By: #### C BC #### [facility] [address] [place] [address] Dr. Jesus Hill Lymphocytes/100 WBC (Bld) 27.7 % Normal 20.5-60.0 [facility] Comment on above: Performed By: #### C BC #### [facility] [address] [place] [address] Dr. Jesus Hill MANUAL DIFF REQ NO Normal [facility] Comment on above: Performed By: #### C BC #### [facility] [address] [place] [address] Dr. Jesus Hill MCH (RBC) [Entitic mass] 30.3 pg Normal 25.9-34.0 [facility] Comment on above: Performed By: #### C BC #### [facility] [address] [place] [address] Dr. Jesus Hill MCHC (RBC) [Mass/Vol] 33.0 g/dL Normal 29.9-35.2 [facility] Comment on above: Performed By: #### C BC #### [facility] [address] [place] [address] Dr. Jesus Hill MCV (RBC) [Entitic vol] 91.8 fL Normal 80.0-94.0 [facility] Comment on above: Performed By: #### C BC #### [facility] [address] [place] [address] Dr. Jesus Hill MONO # 0.7 103/ul Normal 0.3-0.8 [facility] Comment on above: Performed By: #### C BC #### [facility] [address] [place] [address] Dr. Jesus Hill Monocytes/100 WBC (Bld) 8.9 % Normal 1.7-12.0 [facility] Comment on above: Performed By: #### C BC #### [facility] [address] [place] [address] Dr. Jesus Hill NEUT # 4.7 103/ul Normal 1.4-6.5 [facility] Comment on above: Performed By: #### C BC #### [facility] [address] [place] [address] Dr. Jesus Hill Neutrophils/100 WBC (Bld) 57.9 % Normal 43.0-75.0 [facility] Comment on above: Performed By: #### C BC #### [facility] [address] [place] [address] Dr. Jesus Hill Platelet mean volume (Bld) [Entitic vol] 10.3 fL Normal 9.5-13.[address] [facility] Comment on above: Performed By: #### C BC #### [facility] [address] [place] [address] Dr. Jesus Hill PLT 191 103/ul Normal 150-[address] [facility] Comment on above: Performed By: #### C BC #### [facility] [address] [place] [address] Dr. Jesus Hill RBC 5.15 106/ul Normal 4.70-6.[address] [facility] Comment on above: Performed By: #### C BC #### [facility] [address] [place] [address] Dr. Jesus Hill WBC 8.1 103/ul Normal 4.0-11.[address] [facility] Comment on above: Performed By: #### C BC #### [facility] [address] [place] [address] Dr. Jesus Hill POINT OF CARE GLUCOSEon 05 Glucose [Mass/Vol] 325 mg/dL Critically high 74-106 [facility] Comment on above: Performed By: #### P OCGLUC #### [facility] [address] [place] [address] Dr. Jesus Hill Glucose [Mass/Vol] 524 mg/dL Critically high 74-106 [facility] Comment on above: Result Comment: THANG FUENTES Performed By: #### P OCGLUC #### [facility] [address] [place] [address] Dr. Jesus Hill PROF CHEM 8 (BAS METB)on Anion gap [Moles/Vol] 13.2 mmol/L Normal [facility] Comment on above: Performed By: #### B MP #### [facility] [address] [place] [address] Dr. Jesus Hill Calcium [Mass/Vol] 9.0 mg/dL Normal 8.5-10.1 [facility] Comment on above: Performed By: #### B MP #### [facility] [address] [place] [address] Dr. Jesus Hill Chloride [Moles/Vol] 101 mmol/L Normal 98-107 [facility] Comment on above: Performed By: #### B MP #### [facility] [address] [place] [address] Dr. Jesus Hill CO2 [Moles/Vol] 25.9 mmol/L Normal 21.0-32.0 [facility] Comment on above: Performed By: #### B MP #### [facility] [address] [place] [address] Dr. Jesus Hill Creatinine [Mass/Vol] 0.99 mg/dL Normal 0.70-1.30 [facility] Comment on above: Performed By: #### B MP #### [facility] [address] [place] [address] Dr. Jesus Hill EGFR-AF [place] >60 Normal >=60 [facility] Comment on above: Performed By: #### B MP #### [facility] [address] [place] [address] Dr. Jesus Hill EGFR-NON AF [place] >60 Normal >=60 [facility] Comment on above: Performed By: #### B MP #### [facility] [address] [place] [address] Dr. Jesus Hill Glucose [Mass/Vol] 319 mg/dL Critically high 74-106 [facility] Comment on above: Performed By: #### B MP #### [facility] [address] [address] [address] Jesus Hill Potassium [Moles/Vol] 4.1 mmol/L Normal 3.5-5.1 [facility] Comment on above: Performed By: #### B MP #### [facility] [address] [place] [address] Dr. Jesus Hill Sodium [Moles/Vol] 136 mmol/L Normal 136-145 [facility] Comment on above: Performed By: #### B MP #### [facility] [address] [place] [address] Dr. Jesus Hill Urea nitrogen [Mass/Vol] 21.0 mg/dL Critically high 7.0-18.0 [facility] Comment on above: Performed By: #### B MP #### [facility] [address] [place] [address] Dr. Jesus Hill Urea nitrogen/Creatinine [Mass ratio] 21.2 mg/mg Normal [facility] Comment on above: Performed By: #### B MP #### [facility] [address] [place] [address] Dr. Jesus Hill ACETONE SERUMon 09-25-2022 ACETONE Negative Normal NEGATIVE [facility] Comment on above: Performed By: #### A CETON #### [facility] [address] [place] [address] Dr. Jesus Hill BNPon 09-25-2022 Natriuretic peptide B (Bld) [Mass/Vol] 182.0 pg/mL Normal <=1,800.0 [facility] Comment on above: Performed By: #### P OCGLUC #### [facility] [address] [place] [address] Dr. Jesus Hill CBC AUTO DIFFon 09-25-2022 BASO # 0.0 103/ul Normal 0.0-0.1 [facility] Comment on above: Performed By: #### C BC #### [facility] [address] [address] [address] Jesus Hill Basophils/100 WBC (Bld) 0.6 % Normal 0.2-2.0 [facility] Comment on above: Performed By: #### C BC #### [facility] [address] [address] [address] Jesus Hill EO # 0.3 103/ul Normal 0.0-0.7 [facility] Comment on above: Performed By: #### C BC #### [facility] [address] [place] [address] Dr. Jesus Hill Eosinophils/100 WBC (Bld) 4.4 % Normal 0.9-7.0 [facility] Comment on above: Performed By: #### C BC #### [facility] [address] [place] [address] Dr. Jesus Hill Erythrocyte distribution width (RBC) [Ratio] 12.5 % Normal 11.0-15.0 [facility] Comment on above: Performed By: #### C BC #### [facility] [address] [place] [address] Dr. Jesus Hill Hematocrit (Bld) [Volume fraction] 47.8 % Normal 42.0-54.0 [facility] Comment on above: Performed By: #### C BC #### [facility] [address] [place] [address] Dr. Jesus Hill Hemoglobin (Bld) [Mass/Vol] 16.2 g/dL Normal 14.0-18.0 [facility] Comment on above: Performed By: #### C BC #### [facility] [address] [place] [address] Dr. Jesus Hill IG # 0.04 10e3/ul Critically high 0.00-0.03 [facility] Comment on above: Performed By: #### C BC #### [facility] [address] [place] [address] Dr. Jesus Hill IG % 0.6 % Critically high 0.0-0.5 [facility] Comment on above: Performed By: #### C BC #### [facility] [address] [place] [address] Dr. Jesus Hill LYMPH # 1.8 103/ul Normal 1.2-3.8 [facility] Comment on above: Performed By: #### C BC #### [facility] [address] [place] [address] Dr. Jesus Hill Lymphocytes/100 WBC (Bld) 25.9 % Normal 20.5-60.0 [facility] Comment on above: Performed By: #### C BC #### [facility] [address] [place] [address] Dr. Jesus Hill MANUAL DIFF REQ NO Normal [facility] Comment on above: Performed By: #### C BC #### [facility] [address] [place] [address] Dr. Jesus Hill MCH (RBC) [Entitic mass] 30.5 pg Normal 25.9-34.0 [facility] Comment on above: Performed By: #### C BC #### [facility] [address] [place] [address] Dr. Jesus Hill MCHC (RBC) [Mass/Vol] 33.9 g/dL Normal 29.9-35.[address] [facility] Comment on above: Performed By: #### C BC #### [facility] [address] [place] [address] Dr. Jesus Hill MCV (RBC) [Entitic vol] 89.8 fL Normal 80.0-94.0 [facility] Comment on above: Performed By: #### C BC #### [facility] [address] [place] [address] Dr. Jesus Hill MONO # 0.4 103/ul Normal 0.3-0.8 [facility] Comment on above: Performed By: #### C BC #### [facility] [address] [place] [address] Dr. Jesus Hill Monocytes/100 WBC (Bld) 6.4 % Normal 1.7-12.0 [facility] Comment on above: Performed By: #### C BC #### [facility] [address] [place] [address] Dr. Jesus Hill NEUT # 4.3 103/ul Normal 1.4-6.5 [facility] Comment on above: Performed By: #### C BC #### [facility] [address] [place] [address] Dr. Jesus Hill Neutrophils/100 WBC (Bld) 62.1 % Normal 43.0-75.0 [facility] Comment on above: Performed By: #### C BC #### [facility] [address] [place] [address] Dr. Jesus Hill Platelet mean volume (Bld) [Entitic vol] 10.5 fL Normal 9.5-13.5 [facility] Comment on above: Performed By: #### C BC #### [facility] [address] [place] [address] Dr. Jesus Hill PLT 196 103/ul Normal 150-[address] [facility] Comment on above: Performed By: #### C BC #### [facility] [address] [place] [address] Dr. Jesus Hill RBC 5.32 106/ul Normal 4.70-6.[address] [facility] Comment on above: Performed By: #### C BC #### [facility] [address] [place] [address] Dr. Jesus Hill WBC 6.9 103/ul Normal 4.0-11.[address] [facility] Comment on above: Performed By: #### C BC #### [facility] [address] [place] [address] Dr. Jesus Hill ER URINE PROFILEon 3 Bilirubin Ql (U) Negative Normal NEGATIVE [facility] Comment on above: Performed By: #### P OCGLUC #### [facility] Laboratory [address] [place] [address] Dr. Jesus Hill Clarity (U) CLEAR Normal CLEAR [facility] Comment on above: Performed By: #### P OCGLUC #### [facility] Laboratory [address] [address] [address] Jesus Hill Color (U) LT. YELLOW Normal YELLOW [facility] Comment on above: Performed By: #### P OCGLUC #### [facility] Laboratory [address] [address] [address] Jesus Hill ERUAHD A micrscopic examina tion will be performed if indicated. Normal [facility] Comment on above: Performed By: #### P OCGLUC #### [facility] Laboratory [address] [address] [address] Jesus Hill Glucose Ql (U) >1000 Abnormal NEGATIVE [facility] Comment on above: Performed By: #### P OCGLUC #### [facility] Laboratory [address] [address] [address] Jesus Hill Hemoglobin Ql (U) TRACE-INTACT Abnormal NEGATIVE [facility] Comment on above: Performed By: #### P OCGLUC #### [facility] Laboratory [address] [address] [address] Jesus Hill Ketones Ql (U) Negative Normal NEGATIVE [facility] Comment on above: Performed By: #### P OCGLUC #### [facility] Laboratory [address] [address] [address] Jesus Hill LEUKOCYTES TRACE Abnormal NEGATIVE [facility] Comment on above: Performed By: #### P OCGLUC #### [facility] [address] [address] [address] Jesus Hill Nitrite Ql (U) Positive Abnormal NEGATIVE [facility] Comment on above: Performed By: #### P OCGLUC #### [facility] [address] [address] [address] Jesus Hill pH (U) 5.5 [pH] Normal 5-9 [facility] Comment on above: Performed By: #### P OCGLUC #### [facility] Laboratory [address] [place] [address] Dr. Jesus Hill SPEC GRAVITY 1.015 Normal 1.005-<=1. 025 [facility] Comment on above: Performed By: #### P OCGLUC #### [facility] Laboratory [address] [place] [address] Dr. Jesus Hill UA PROTEIN Negative Normal NEGATIVE/ TRACE [facility] Comment on above: Performed By: #### P OCGLUC #### [facility] Laboratory [address] [place] [address] Dr. Jesus Hill UR MICRO IND INDICATED Normal [facility] Comment on above: Performed By: #### P OCGLUC #### [facility] Laboratory [address] [place] [address] Dr. Jesus Hill Urobilinogen Qn (U) 0.2 {Naida'U}/dL Normal 0.2 - 1. 0 [facility] Comment on above: Performed By: #### P OCGLUC #### [facility] Laboratory [address] [place] [address] Dr. Jesus Hill LACTATE/LACTIC ACIDon 2022 Lactate [Moles/Vol] 1.6 mmol/L Normal 0.4-2.0 [facility] Comment on above: Performed By: #### L ACT #### [facility] Laboratory [address] [place] [address] Dr. Jesus Hill PH VENOUS BLOODon 09-25-2022 PCO2 VENOUS 47.9 mmHg Normal 40.0-52.0 [facility] Comment on above: Performed By: #### P HVEN #### [facility] Laboratory [address] [place] [address] Dr. Jesus Hill pH VENOUS 7.399 Normal 7.330-7.43 0 [facility] Comment on above: Performed By: #### P HVEN #### [facility] Laboratory [address] [place] [address] Dr. Jesus Hill PROF CHEM 8 (BAS METB)on Anion gap [Moles/Vol] 13.4 mmol/L Normal [facility] Comment on above: Performed By: #### B MP #### [facility] Laboratory [address] [place] [address] Dr. Jesus Hill Calcium [Mass/Vol] 9.0 mg/dL Normal 8.5-10.1 [facility] Comment on above: Performed By: #### B MP #### [facility] [address] [address] [address] Jesus Hill Chloride [Moles/Vol] 100 mmol/L Normal 98-107 [facility] Comment on above: Performed By: #### B MP #### [facility] Laboratory [address] [address] [address] Jesus Hill CO2 [Moles/Vol] 27.8 mmol/L Normal 21.0-32.0 [facility] Comment on above: Performed By: #### B MP #### [facility] Laboratory [address] [address] [address] Jesus Hill Creatinine [Mass/Vol] 0.98 mg/dL Normal 0.70-1.30 [facility] Comment on above: Performed By: #### B MP #### [facility] Laboratory [address] [place] [address] Dr. Jesus Hill EGFR-AF [place]TH [place]OREAN >60 Normal >=60 [facility] Comment on above: Performed By: #### B MP #### [facility] Laboratory [address] [address] [address] Jesus Hill EGFR-NON AF [place]TH [place]OREAN >60 Normal >=60 [facility] Comment on above: Performed By: #### B MP #### [facility] Laboratory [address] [place] [address] Dr. Jesus Hill Glucose [Mass/Vol] 379 mg/dL Critically high 74-106 [facility] Comment on above: Performed By: #### B MP #### [facility] [address] [place] [address] Dr. Jesus Hill Potassium [Moles/Vol] 4.2 mmol/L Normal 3.5-5.1 [facility] Comment on above: Performed By: #### B MP #### [facility] [address] [address] [address] Jesus Hill Sodium [Moles/Vol] 137 mmol/L Normal 136-145 [facility] Comment on above: Performed By: #### B MP #### [facility] [address] [address] [address] Jesus Hill Urea nitrogen [Mass/Vol] 21.0 mg/dL Critically high 7.0-18.0 [facility] Comment on above: Performed By: #### B MP #### [facility] Laboratory [address] [place] [address] Dr. Jesus Hill Urea nitrogen/Creatinine [Mass ratio] 21.4 mg/mg Normal [facility] Comment on above: Performed By: #### B MP #### [facility] Laboratory [address] [place] [address] Dr. Jesus Hill TROPONIN, HIGH SENSITIVITYon 09-25-2022 HSTROP 9.5 pg/mL Normal 4.0-76.[address] [facility] Comment on above: Result Comment: CUT- OFF POINTS HAVE BEEN ESTABLISHED BASED ON THE FOURTH UNIVERSAL DEFINITIONS OF MYOCARDIAL INFARCTION. THE UPPER REFERENCE LIMIT (URL) OF TROPONIN, DEFINED THE 99TH PERCENTILE OF cTnI DISTRIBUTION IN A REFERENCE POPULATION, HAS BEEN CONFIRMED THE DECISION THRESHOLD FOR [place] DIAGNOSIS. Performed By: #### P OCGLUC #### [facility] Laboratory [address] [place] [address] Dr. Jesus Hill TSHon 09-25-2022 TSH 3.426 uIU/mL Normal 0.358-3.74 [address] [facility] Comment on above: Performed By: #### H STROPN, TSH, BNP #### [facility] Laboratory [address] [place] [address] Dr. Jesus Hill URINE MICROSCOPIC ONLYon BACTERIA MODERATE Abnormal NONE SEEN [facility] Comment on above: Performed By: #### P OCGLUC #### [facility] Laboratory [address] [place] [address] Dr. Jesus Hill Bacteria identified Cx Nom (U) INDICATED Normal [facility] Comment on above: Performed By: #### P OCGLUC #### [facility] Laboratory [address] [place] [address] Dr. Jesus Hill CAST NONE SEEN Normal NONE SEEN [facility] Comment on above: Performed By: #### P OCGLUC #### [facility] Laboratory [address] [place] [address] Dr. Jesus Hill Crystals LM Nom (Urine sed) NONE SEEN Normal NONE SEEN [facility] Comment on above: Performed By: #### P OCGLUC #### [facility] Laboratory [address] [place] [address] Dr. Jesus Hill Epithelial cells LM Ql (Urine sed) RARE Normal NONE SEEN /RARE [facility] Comment on above: Performed By: #### P OCGLUC #### [facility] Laboratory [address] [place] [address] Dr. Jesus Hill MUCOUS NONE SEEN Normal NONE SEEN [facility] Comment on above: Performed By: #### P OCGLUC #### [facility] [address] [place] [address] Dr. Jesus Hill RBC 2-5 Abnormal 0-[address] [facility] Comment on above: Performed By: #### P OCGLUC #### [facility] Laboratory [address] [place] [address] Dr. Jesus Hill WBC 20-50 Abnormal NONE SEEN [facility] Comment on above: Performed By: #### P OCGLUC #### [facility] Laboratory [address] [place] [address] Dr. Jesus Hill XR CHEST 1 Von 09-25-2022 XR CHEST 1 V EXAM: XR CHEST 1 V a t 1723 hours HISTORY: Asthenia COMPARISON: 02/03/2020 TECHNIQUE: AP upright portable chest x-ray FINDINGS: The heart is not enlarged and the vasculature is not distended. Multiple sternal wire sutures are present with a cardiac device in place. No acute infiltrate, effusion or pneumothorax is identified. The osseous structures are grossly intact. IMPRESSION: No acute infiltrate or evidence of cardiac decompensation. The overall appearance of the chest is unchanged. Electronically authenticated by: YOGI DE PAZ Date: 2022-09-25 18:10 Normal [facility] Activated partial thrombopla stin time (aPTT) in platelet poor plasma by coagulation aOrdered By: Kwame Caal on 12-30-2021 aPTT Coag (PPP) [Time] 31.6 s 25.1-36.5 [facility] Basophils Auto (Bld) [#/Vol] Ordered By: Kwame Caal on 12-30-2021 Basophils (Bld) [#/Vol] 0.1 10*3/uL 0.0-0.2 [facility] Basophils/100 WBC Auto (Bld) Ordered By: Kwame Caal on 12-30-2021 Basophils/100 WBC (Bld) 0.6 % . [facility] Blood hemoglobin measurement (mass/volume)Ordered By: Kwame Caal on 12-30-2021 Hemoglobin (Bld) [Mass/Vol] 15.2 g/dL 13.0-17.0 [facility] Blood leukocytes automated c ount (number/volume)Ordered By: Kwame Caal on 12-30-2021 WBC (Bld) [#/Vol] 9.7 10*3/uL 4.5-11.0 [facility] Creatine kinase [Enzymatic a ctivity/volume] in Serum or PlasmaOrdered By: Kwame Caal on 12-30-2021 CK [Catalytic activity/Vol] 144 U/L 22-269 [facility] Creatinine and Glomerular fi ltration rate.predicted panel (S/P/Bld)Ordered By: Kwame Caal on 12-30-2021 Creatinine [Mass/Vol] 1.10 mg/dL 0.64-1.27 [facility] Eosinophils Auto (Bld) [#/Vo l]Ordered By: Kawme Caal on 12-30-2021 Eosinophils (Bld) [#/Vol] 0.2 10*3/uL 0.0-0.45 [facility] Eosinophils/100 WBC Auto (Bl d)Ordered By: Kwame Caal on 12-30-2021 Eosinophils/100 WBC (Bld) 2.0 % . [facility] Erythrocyte distribution wid th Auto (RBC) [Ratio]Ordered By: Kwame Caal on 12-30-2021 Erythrocyte distribution width (RBC) [Ratio] 14.1 % 12.0-14.8 [facility] Estimated glomerular filtrat ion rate (GFR) non- AmericanOrdered By: Kwame Caal on 12-30-2021 GFR/1.73 sq M.predicted among non-blacks MDRD (S/P/Bld) [Vol rate/Area] > 60 mL/Min [facility] Hematocrit Auto (Bld) [Volum e fraction]Ordered By: Kwame Caal on 12-30-2021 Hematocrit (Bld) [Volume fraction] 43.6 % 38.8-50.0 [facility] Laboratory - Chemistry and C hemistry - challengeOrdered By: Kwame Caal on 12-30-2021 Natriuretic peptide B (Bld) [Mass/Vol] 38.0 pg/mL 5-100 [facility] Laboratory - CoagulationOrde red By: Kwame Caal on 12-30-2021 PT Coag (PPP) [Time] 11.4 s 9.0-12.9 [facility] Laboratory - Hematology and Cell countsOrdered By: Kwame Caal on 12-30-2021 Nucleated RBC/100 WBC (Bld) [Ratio] 0.1 % 0-0.5 [facility] Lymphocytes Auto (Bld) [#/Vo l]Ordered By: Kwame Caal on 12-30-2021 Lymphocytes (Bld) [#/Vol] 1.8 10*3/uL 1.00-4.8 [facility] Lymphocytes/100 WBC Auto (Bl d)Ordered By: Kwame Caal on 12-30-2021 Lymphocytes/100 WBC (Bld) 18.6 % . [facility] MCH Auto (RBC) [Entitic mass ]Ordered By: Kwame Caal on 12-30-2021 MCH (RBC) [Entitic mass] 31.1 pg 27.5-35.2 [facility] MCHC Auto (RBC) [Mass/Vol]Or dered By: Kwame Caal on 12-30-2021 MCHC (RBC) [Mass/Vol] 34.9 g/dL 32.5-35.6 [facility] MCV Auto (RBC) [Entitic vol] Ordered By: Kwame Caal on 12-30-2021 MCV (RBC) [Entitic vol] 89.2 fL 83.5-101 [facility] Monocytes Auto (Bld) [#/Vol] Ordered By: Kwame Caal on 12-30-2021 Monocytes (Bld) [#/Vol] 0.8 10*3/uL 0.0-0.8 [facility] Monocytes/100 WBC Auto (Bld) Ordered By: Kwame Caal on 12-30-2021 Monocytes/100 WBC (Bld) 8.5 % . [facility] Neutrophils Auto (Bld) [#/Vo l]Ordered By: Kwame Caal on 12-30-2021 Neutrophils (Bld) [#/Vol] 6.8 10*3/uL 1.8-7.7 [facility] Neutrophils/100 WBC Auto (Bl d)Ordered By: Kwame Caal on 12-30-2021 Neutrophils/100 WBC (Bld) 70.3 % . [facility] No Panel InformationOrdered By: Kwame Caal on 12-30-2021 Estimated GFR () > 60 mL/Min [facility] Comment on above: GFR estimated refere nce range: According to KDOQI guidelines, <60 ml/min/1.73m2 is sufficient to diagnose a patient with chronic kidney disease. Pharmacy Creatinine Clearance (Chem 64.73 [facility] Platelet mean volume Auto (B ld) [Entitic vol]Ordered By: Kwame Caal on 12-30-2021 Platelet mean volume (Bld) [Entitic vol] 8.7 fL 6.6-10.1 [facility] Platelet poor plasma interna tional normalized ratio (INR) by coagulation assay (relatOrdered By: Kwame Caal on 12-30-2021 INR Coag (PPP) [Relative time] 1.0 {INR} [facility] Comment on above: INR Therapeutic Rang e A) Pre- and Peroperative OAT started two weeks before surgery. NOT HIP SURGERY: 1.5 - 2.5 HIP SURGERY: 2 - 3 B) Primary and secondary prevention of venous THROMBOSIS: 2 - 3 C) Active venous thrombosis, pulmonary embolism and prevention of recurrent venous thrombosis: 2 - 3 D) Prevention of arterial thromboembolism including patients with mechanical heart valves: 3 - 4.5 Platelets Auto (Bld) [#/Vol] Ordered By: Kwame Caal on 12-30-2021 Platelets (Bld) [#/Vol] 234 10*3/uL 150-450 [facility] RBC Auto (Bld) [#/Vol]Ordere d By: Kwame Caal on 12-30-2021 RBC (Bld) [#/Vol] 4.89 10*6/uL 3.90-5.60 [facility] Serum or plasma calcium martin urement (mass/volume)Ordered By: Kwame Caal on 12-30-2021 Calcium [Mass/Vol] 9.6 mg/dL 8.2-10.2 [facility] Serum or plasma chloride be surement (moles/volume)Ordered By: Kwame Caal on 12-30-2021 Chloride [Moles/Vol] 98 mmol/L 95-114 [facility] Serum or plasma creatine kin ase MB (CKMB)/total creatine kinase (CK) ratio by calculaOrdered By: Kwame Caal on 12-30-2021 CK.MB Calc [Catalytic fraction] 1.7 % 0.00-2.50 [facility] Serum or plasma creatine kin ase MB measurement (mass/volume)Ordered By: Kwame Caal on 12-30-2021 CK.MB [Mass/Vol] 2.5 ng/mL 0.6-6.3 [facility] Serum or plasma glucose martin urement (mass/volume)Ordered By: Kwame Caal on 12-30-2021 Glucose [Mass/Vol] 293 mg/dL 70-100 [facility] Comment on above: ADA recommended refe rence range Random Glucose Reference Range is dependent on time and content of last meal. Glucose of more than 200 mg/dL in a nonstressed, ambulatory subject supports the diagnosis of Diabetes Mellitus. Serum or plasma potassium me asurement (moles/volume)Ordered By: Kwame Caal on 12-30-2021 Potassium [Moles/Vol] 4.2 mmol/L 3.5-5.1 [facility] Serum or plasma sodium measu rement (moles/volume)Ordered By: Kwame Caal on 12-30-2021 Sodium [Moles/Vol] 135 mmol/L 136-146 [facility] Serum or plasma total carbon dioxide measurement (moles/volume)Ordered By: Kwame Caal on 12-30-2021 CO2 [Moles/Vol] 25.2 mmol/L 22.0-30.0 [facility] Serum or plasma urea nitroge n measurement (mass/volume)Ordered By: Kwame Caal on 12-30-2021 Urea nitrogen [Mass/Vol] 25 mg/dL 9-23 [facility] Troponin I.cardiac [Mass/vol ume] in Serum or Plasma by High sensitivity methodOrdered By: Kwame Caal on 12-30-2021 Troponin I.cardiac High sensitivity method [Mass/Vol] 9 pg/mL 0-20 [facility] Activated partial thrombopla stin time (aPTT) in platelet poor plasma by coagulation aOrdered By: Ken Jean-Baptiste on 10-11-2021 aPTT Coag (PPP) [Time] 32.3 s 25.1-36.5 [facility] Basophils Auto (Bld) [#/Vol] Ordered By: Ken Jean-Baptiste on 10-11-2021 Basophils (Bld) [#/Vol] 0.1 10*3/uL 0.0-0.2 [facility] Basophils/100 WBC Auto (Bld) Ordered By: Ken Jean-Baptiste on 10-11-2021 Basophils/100 WBC (Bld) 1.2 % [facility] Blood hemoglobin measurement (mass/volume)Ordered By: Ken Jean-Baptiste on 10-11-2021 Hemoglobin (Bld) [Mass/Vol] 14.5 g/dL 13.0-17.0 [facility] Blood leukocytes automated c ount (number/volume)Ordered By: Ken Jean-Baptiste on 10-11-2021 WBC (Bld) [#/Vol] 6.9 10*3/uL 4.5-11.0 [facility] Creatinine and Glomerular fi ltration rate.predicted panel (S/P/Bld)Ordered By: Ken Jean-Baptiste on 10-11-2021 Creatinine [Mass/Vol] 1.06 mg/dL 0.64-1.27 [facility] Eosinophils Auto (Bld) [#/Vo l]Ordered By: Ken Jean-Baptiste on 10-11-2021 Eosinophils (Bld) [#/Vol] 0.5 10*3/uL 0.0-0.45 [facility] Eosinophils/100 WBC Auto (Bl d)Ordered By: Ken Jean-Baptiste on 10-11-2021 Eosinophils/100 WBC (Bld) 7.2 % [facility] Erythrocyte distribution wid th Auto (RBC) [Ratio]Ordered By: Ken Jean-Baptiste on 10-11-2021 Erythrocyte distribution width (RBC) [Ratio] 13.6 % 12.0-14.8 [facility] Estimated glomerular filtrat ion rate (GFR) non- AmericanOrdered By: Ken Jean-Baptiste on 10-11-2021 GFR/1.73 sq M.predicted among non-blacks MDRD (S/P/Bld) [Vol rate/Area] > 60 mL/Min [facility] Hematocrit Auto (Bld) [Volum e fraction]Ordered By: Ken Jean-Baptiste on 10-11-2021 Hematocrit (Bld) [Volume fraction] 42.6 % 38.8-50.0 [facility] Laboratory - Chemistry and C hemistry - challengeOrdered By: Ken Jean-Baptiste on 10-11-2021 Natriuretic peptide B (Bld) [Mass/Vol] 43.0 pg/mL 5-100 [facility] Laboratory - CoagulationOrde red By: Ken Jean-Baptiste on 10-11-2021 PT Coag (PPP) [Time] 11.0 s 9.0-12.9 [facility] Laboratory - Hematology and Cell countsOrdered By: Ken Jean-Baptiste on 10-11-2021 Nucleated RBC/100 WBC (Bld) [Ratio] 0.1 % 0-0.5 [facility] Lymphocytes Auto (Bld) [#/Vo l]Ordered By: Ken Jean-Baptiste on 10-11-2021 Lymphocytes (Bld) [#/Vol] 1.8 10*3/uL 1.00-4.8 [facility] Lymphocytes/100 WBC Auto (Bl d)Ordered By: Ken Jean-Baptiste on 10-11-2021 Lymphocytes/100 WBC (Bld) 26.5 % [facility] MCH Auto (RBC) [Entitic mass ]Ordered By: Ken Jean-Baptiste on 10-11-2021 MCH (RBC) [Entitic mass] 30.6 pg 27.5-35.2 [facility] MCHC Auto (RBC) [Mass/Vol]Or dered By: Ken Jean-Baptiste on 10-11-2021 MCHC (RBC) [Mass/Vol] 34.0 g/dL 32.5-35.6 [facility] MCV Auto (RBC) [Entitic vol] Ordered By: Ken Jean-Baptiste on 10-11-2021 MCV (RBC) [Entitic vol] 90.1 fL 83.5-101 [facility] Monocytes Auto (Bld) [#/Vol] Ordered By: Ken Jean-Baptiste on 10-11-2021 Monocytes (Bld) [#/Vol] 0.7 10*3/uL 0.0-0.8 [facility] Monocytes/100 WBC Auto (Bld) Ordered By: Ken Jean-Baptiste on 10-11-2021 Monocytes/100 WBC (Bld) 9.5 % [facility] Neutrophils Auto (Bld) [#/Vo l]Ordered By: Ken Jean-Baptiste on 10-11-2021 Neutrophils (Bld) [#/Vol] 3.8 10*3/uL 1.8-7.7 [facility] Neutrophils/100 WBC Auto (Bl d)Ordered By: Ken Jean-Baptiste on 10-11-2021 Neutrophils/100 WBC (Bld) 55.6 % [facility] No Panel InformationOrdered By: Ken Jean-Baptiste on 10-11-2021 Estimated GFR () > 60 mL/Min [facility] Comment on above: GFR estimated refere nce range: According to KDOQI guidelines, <60 ml/min/1.73m2 is sufficient to diagnose a patient with chronic kidney disease. Pharmacy Creatinine Clearance (Chem 63.14 [facility] Platelet mean volume Auto (B ld) [Entitic vol]Ordered By: Ken Jean-Baptiste on 10-11-2021 Platelet mean volume (Bld) [Entitic vol] 8.9 fL 6.6-10.1 [facility] Platelet poor plasma interna tional normalized ratio (INR) by coagulation assay (relatOrdered By: Ken Jean-Baptiste on 10-11-2021 INR Coag (PPP) [Relative time] 1.0 {INR} [facility] Comment on above: INR Therapeutic Rang e A) Pre- and Peroperative OAT started two weeks before surgery. NOT HIP SURGERY: 1.5 - 2.5 HIP SURGERY: 2 - 3 B) Primary and secondary prevention of venous THROMBOSIS: 2 - 3 C) Active venous thrombosis, pulmonary embolism and prevention of recurrent venous thrombosis: 2 - 3 D) Prevention of arterial thromboembolism including patients with mechanical heart valves: 3 - 4.5 Platelets Auto (Bld) [#/Vol] Ordered By: Ken Jean-Baptiste on 10-11-2021 Platelets (Bld) [#/Vol] 188 10*3/uL 150-450 [facility] RBC Auto (Bld) [#/Vol]Ordere d By: Ken Jean-Baptiste on 10-11-2021 RBC (Bld) [#/Vol] 4.73 10*6/uL 3.90-5.60 [facility] Serum or plasma calcium martin urement (mass/volume)Ordered By: Ken Jean-Baptiste on 10-11-2021 Calcium [Mass/Vol] 9.3 mg/dL 8.2-10.2 [facility] Serum or plasma chloride be surement (moles/volume)Ordered By: Ken Jean-Baptiste on 10-11-2021 Chloride [Moles/Vol] 101 mmol/L 95-114 [facility] Serum or plasma glucose martin urement (mass/volume)Ordered By: Ken Jean-Baptiste on 10-11-2021 Glucose [Mass/Vol] 266 mg/dL 70-100 [facility] Comment on above: ADA recommended refe rence range Random Glucose Reference Range is dependent on time and content of last meal. Glucose of more than 200 mg/dL in a nonstressed, ambulatory subject supports the diagnosis of Diabetes Mellitus. Serum or plasma potassium me asurement (moles/volume)Ordered By: Ken Jean-Baptiste on 10-11-2021 Potassium [Moles/Vol] 4.0 mmol/L 3.5-5.1 [facility] Serum or plasma sodium measu rement (moles/volume)Ordered By: Ken Jean-Baptiste on 10-11-2021 Sodium [Moles/Vol] 136 mmol/L 136-146 [facility] Serum or plasma total carbon dioxide measurement (moles/volume)Ordered By: Ken Jean-Baptiste on 10-11-2021 CO2 [Moles/Vol] 23.6 mmol/L 22.0-30.0 [facility] Serum or plasma urea nitroge n measurement (mass/volume)Ordered By: Ken Jean-Baptiste on 10-11-2021 Urea nitrogen [Mass/Vol] 21 mg/dL 9 [facility] Troponin I.cardiac [Mass/vol ume] in Serum or Plasma by High sensitivity methodOrdered By: Ken Jean-Baptiste on 10-11-2021 Troponin I.cardiac High sensitivity method [Mass/Vol] 6 pg/mL 0-20 [facility] CBC Auto Differentialon 12-0 Basophils (Bld) [#/Vol] 0.10 10*3/uL [place] Basophils/100 WBC (Bld) 1 % 0 - 2 % [place] Differential Type NOT REPORTED [place] Eosinophils (Bld) [#/Vol] 0.20 10*3/uL [place] Eosinophils/100 WBC (Bld) 3 % 0 - 4 % [place] Erythrocyte distribution width (RBC) [Ratio] 13.5 % 11.5 - 14.9 % [place] Hematocrit (Bld) [Volume fraction] 46.7 % 41 - 53 % [place] Hemoglobin (Bld) [Mass/Vol] 15.8 g/dL 13.5 - 17.5 g/dL [place] Interpretation and review of laboratory results Abnormal [place] Lymphocytes (Bld) [#/Vol] 1.30 10*3/uL [place] Lymphocytes/100 WBC (Bld) 20 % Low 24 - 44 % [place] MCH (RBC) [Entitic mass] 31.0 pg 26 - 34 pg [place] MCHC (RBC) [Mass/Vol] 33.8 g/dL 31 - 3 7 g/dL [place] MCV (RBC) [Entitic vol] 91.7 fL 80 - 100 fL [place] Monocytes (Bld) [#/Vol] 0.50 10*3/uL [place] Monocytes/100 WBC (Bld) 8 % High 1 - 7 % [place] Platelet mean volume (Bld) [Entitic vol] 9.0 fL 6 - 12 fL [place] Platelets (Bld) [#/Vol] 180 10*3/uL [place] Platelets (Bld) [#/Vol] NOT REPORTED [place] RBC (Bld) [#/Vol] 5.09 10*6/uL 4.5 - 5.9 m/uL [place] RBC morphology finding Nom (Bld) NOT REPORTED [place] Segmented neutrophils/100 WBC (Bld) 68 % High 36 - 66 % [place] Segs Absolute 4.40 [place] WBC (Bld) [#/Vol] NOT REPORTED per 100 [place] WBC (Bld) [#/Vol] 6.5 10*3/uL [place] WBC Morphology NOT REPORTED [place] CBC with Diffon 04-17-2020 Abs. Basophil 0.10 k/uL Normal 0.0-0.2 [facility] Comment on above: Performed By: #### C DP, CP, ECENZ, FT4, TSH #### [facility] [address] [place] [address] Editing Computer Publisher: Shankar Ruffin DO Abs.Neutrophil (Seg) 4.40 k/uL Normal 1.3-9.1 [facility] Comment on above: Performed By: #### C DP, CP, ECENZ, FT4, TSH #### [facility] [place] [address] Editing Computer Publisher: Shankar Ruffin DO Basophils/100 WBC (Bld) 1 % Normal 0-2 [facility] Comment on above: Performed By: #### C DP, CP, ECENZ, FT4, TSH #### [facility] [place] [address] Editing Computer Publisher: Shankar Ruffin DO Eosinophils (Bld) [#/Vol] 0.20 10*3/uL Normal 0.0-0.4 [facility] Comment on above: Performed By: #### C DP, CP, ECENZ, FT4, TSH #### [facility] [address] [place] [address] Editing Computer Publisher: Shankar Ruffin DO Eosinophils/100 WBC (Bld) 3 % Normal 0-4 [facility] Comment on above: Performed By: #### C DP, CP, ECENZ, FT4, TSH #### [facility] [address] [place] [address] Editing Computer Publisher: Shankar Ruffin DO Erythrocyte distribution width (RBC) [Ratio] 13.5 % Normal 11.5-14.9 [facility] Comment on above: Performed By: #### C DP, CP, ECENZ, FT4, TSH #### [facility] [place] [address] Editing Computer Publisher: Shankar Ruffin DO Hematocrit (Bld) [Volume fraction] 46.7 % Normal 41-53 [facility] Comment on above: Performed By: #### C DP, CP, ECENZ, FT4, TSH #### [facility] [place] [address] Editing Computer Publisher: Shankar Ruffin DO Hemoglobin (Bld) [Mass/Vol] 15.8 g/dL Normal 13.5-17.5 [facility] Comment on above: Performed By: #### C DP, CP, ECENZ, FT4, TSH #### [facility] [address] [place] [address] Editing Computer Publisher: Shankar Ruffin DO Lymphocytes (Bld) [#/Vol] 1.30 10*3/uL Normal 1.0-4.8 [facility] Comment on above: Performed By: #### C DP, CP, ECENZ, FT4, TSH #### [facility] [place] [address] Editing Computer Publisher: Shankar Ruffin DO Lymphocytes/100 WBC (Bld) 20 % Low 24-44 [facility] Comment on above: Performed By: #### C DP, CP, ECENZ, FT4, TSH #### [facility] [address] [place] [address] Editing Computer Publisher: Shankar Ruffin DO MCH (RBC) [Entitic mass] 31.0 pg Normal 26-34 [facility] Comment on above: Performed By: #### C DP, CP, ECENZ, FT4, TSH #### [facility] [address] [place] [address] Editing Computer Publisher: Shankar Ruffin DO MCHC (RBC) [Mass/Vol] 33.8 g/dL Normal 31-37 [facility] Comment on above: Performed By: #### C DP, CP, ECENZ, FT4, TSH #### [facility] [facility] [address] Editing Computer Publisher: Shankar Ruffin DO MCV (RBC) [Entitic vol] 91.7 fL Normal 80-100 [facility] Comment on above: Performed By: #### C DP, CP, ECENZ, FT4, TSH #### [facility] [address] Editing Computer Publisher: Shankar Ruffin DO Monocytes (Bld) [#/Vol] 0.50 10*3/uL Normal 0.1-1.3 [facility] Comment on above: Performed By: #### C DP, CP, ECENZ, FT4, TSH #### [facility] [place] [address] Editing Computer Publisher: Shankar Ruffin DO Monocytes/100 WBC (Bld) 8 % High 1-7 [facility] Comment on above: Performed By: #### C DP, CP, ECENZ, FT4, TSH #### [facility] [address] [place] [address] Editing Computer Publisher: Shankar Ruffin DO Neutrophil (Seg) 68 % High 36-66 [facility] Comment on above: Performed By: #### C DP, CP, ECENZ, FT4, TSH #### [facility] [address] [place] [address] Editing Computer Publisher: Shankar Ruffin DO Platelet mean volume (Bld) [Entitic vol] 9.0 fL Normal 6.0-12.0 [facility] Comment on above: Performed By: #### C DP, CP, ECENZ, FT4, TSH #### [facility] [address] [place] [address] Editing Computer Publisher: Shankar Ruffin DO Platelets (Bld) [#/Vol] 180 10*3/uL Normal 150-450 [facility] Comment on above: Performed By: #### C DP, CP, ECENZ, FT4, TSH #### [facility] [address] [place] [address] Editing Computer Publisher: Shankar Ruffin DO RBC (Bld) [#/Vol] 5.09 10*6/uL Normal 4.5-5.9 [facility] Comment on above: Performed By: #### C DP, CP, ECENZ, FT4, TSH #### [facility] [address] [place] [address] Editing Computer Publisher: Shankar Ruffin DO WBC (Bld) [#/Vol] 6.5 10*3/uL Normal 3.5-11.0 [facility] Comment on above: Performed By: #### C DP, CP, ECENZ, FT4, TSH #### [facility] [address] [place] [address] Editing Computer Publisher: Shankar Ruffin DO Abs.Imm.Granulocyte NOT REPORTED Normal 0.00-0.30 [facility] Comment on above: Performed By: #### C DP, CP, ECENZ, FT4, TSH #### [facility] [place] [address] Editing Computer Publisher: Shankar Ruffin DO Auto Diff Performed NOT REPORTED Normal [facility] Comment on above: Performed By: #### C DP, CP, ECENZ, FT4, TSH #### [facility] [address] [place] [address] Editing Computer Publisher: Shankar Ruffin DO Immature granulocytes (Bld) [#/Vol] NOT REPORTED Normal 0 [facility] Comment on above: Performed By: #### C DP, CP, ECENZ, FT4, TSH #### [facility] [address] [place] [address] Editing Computer Publisher: Shankar Ruffin DO NRBC Automated NOT REPORTED Normal [facility] Comment on above: Performed By: #### C DP, CP, ECENZ, FT4, TSH #### [facility] [address] [place] [address] Editing Computer Publisher: Shankar Ruffin DO Platelets (Bld) [#/Vol] NOT REPORTED Normal [facility] Comment on above: Performed By: #### C DP, CP, ECENZ, FT4, TSH #### [facility] [address] [place] [address] Editing Computer Publisher: Shankar Ruffin DO RBC morphology finding Nom (Bld) NOT REPORTED Normal [facility] Comment on above: Performed By: #### C DP, CP, ECENZ, FT4, TSH #### [facility] [address] [place] [address] Editing Computer Publisher: Shankar Ruffin DO WBC Morphology NOT REPORTED Normal [facility] Comment on above: Performed By: #### C DP, CP, ECENZ, FT4, TSH #### [facility] [address] [place] [address] Editing Computer Publisher: Shankar Rufifn DO Comp Metabolic Profon 2019 (cont.) Normal [facility] Comment on above: Result Comment: Aver age GFR for 70 or more years old: 75 mL/min/1.73sq m Chronic Kidney Disease: <60 mL/min/1.73sq m Kidney failure: <15 mL/min/1.73sq m eGFR calculated using average adult body mass. Additional eGFR calculator available at: http://www.XimoXi/multiple_crcl_2012.htm Performed By: #### C DP, CP, ECENZ, FT4, TSH #### [facility] [address] [place] [address] Editing Computer Publisher: Shankar Ruffin DO Albumin [Mass/Vol] 3.8 g/dL Normal 3.5-5.2 [facility] Comment on above: Performed By: #### C DP, CP, ECENZ, FT4, TSH #### [facility] [address] [place] [address] Editing Computer Publisher: Shankar Ruffin DO Alkaline Phos 97 U/L Normal 40-129 [facility] Comment on above: Performed By: #### C DP, CP, ECENZ, FT4, TSH #### [facility] [address] [place] [address] Editing Computer Publisher: Shankar Ruffin DO ALT [Catalytic activity/Vol] 13 U/L Normal 5-41 [facility] Comment on above: Performed By: #### C DP, CP, ECENZ, FT4, TSH #### [facility] [address] [place] [address] Editing Computer Publisher: Shankar Ruffin DO Anion gap [Moles/Vol] 11 mmol/L Normal 9-17 [facility] Comment on above: Performed By: #### C DP, CP, ECENZ, FT4, TSH #### [facility] [address] [place] [address] Editing Computer Publisher: Shankar Ruffin DO AST [Catalytic activity/Vol] 14 U/L Normal <40 [facility] Comment on above: Performed By: #### C DP, CP, ECENZ, FT4, TSH #### [facility] [address] [place] [address] Editing Computer Publisher: Shankar Ruffin DO Bilirubin Ql (U) 0.48 mg/dL Normal 0.3-1.2 [facility] Comment on above: Performed By: #### C DP, CP, ECENZ, FT4, TSH #### [facility] [address] [facility] [address] Editing Computer Publisher: Shankar Ruffin DO Calcium [Mass/Vol] 8.9 mg/dL Normal 8.6-10.4 [facility] Comment on above: Performed By: #### C DP, CP, ECENZ, FT4, TSH #### [facility] [place] [address] Editing Computer Publisher: Shankar Ruffin DO Chloride [Moles/Vol] 101 mmol/L Normal 98-107 [facility] Comment on above: Performed By: #### C DP, CP, ECENZ, FT4, TSH #### [facility] [facility] [address] Editing Computer Publisher: Shankar Ruffin DO CO2 [Moles/Vol] 26 mmol/L Normal 20-31 [facility] Comment on above: Performed By: #### C DP, CP, ECENZ, FT4, TSH #### [facility] [address] [place] [address] Editing Computer Publisher: Shankar Ruffin DO Creatinine [Mass/Vol] 0.82 mg/dL Normal 0.70-1.20 [facility] Comment on above: Performed By: #### C DP, CP, ECENZ, FT4, TSH #### [facility] [address] [facility] [address] Editing Computer Publisher: Shankar Ruffin DO GFR, Amer >60 Normal >60 [facility] Comment on above: Performed By: #### C DP, CP, ECENZ, FT4, TSH #### [facility] [address] [facility] [address] Editing Computer Publisher: Shankar Ruffin DO GFR,non Amer >60 Normal >60 [facility] Comment on above: Performed By: #### C DP, CP, ECENZ, FT4, TSH #### [facility] [address] [place] [address] Editing Computer Publisher: Shankar Ruffin DO Glucose [Mass/Vol] 231 mg/dL High 70-99 [facility] Comment on above: Performed By: #### C DP, CP, ECENZ, FT4, TSH #### [facility] [place] [address] Editing Computer Publisher: Shankar Ruffin DO Potassium [Moles/Vol] 4.1 mmol/L Normal 3.7-5.3 [facility] Comment on above: Performed By: #### C DP, CP, ECENZ, FT4, TSH #### [facility] [address] [place] [address] Editing Computer Publisher: Shankar Ruffin DO Protein [Mass/Vol] 6.7 g/dL Normal 6.4-8.3 [facility] Comment on above: Performed By: #### C DP, CP, ECENZ, FT4, TSH #### [facility] [address] [place] [address] Editing Computer Publisher: Shankar Ruffin DO Sodium [Moles/Vol] 138 mmol/L Normal 135-144 [facility] Comment on above: Performed By: #### C DP, CP, ECENZ, FT4, TSH #### [facility] [address] [place] [address] Editing Computer Publisher: Shankar Ruffin DO Urea nitrogen [Mass/Vol] 19 mg/dL Normal 8-23 [facility] Comment on above: Performed By: #### C DP, CP, ECENZ, FT4, TSH #### [facility] [address] [place] [address] Editing Computer Publisher: Shankar Ruffin DO Albumin/Globulin [Mass ratio] NOT REPORTED Normal 1.0-2.5 [facility] Comment on above: Performed By: #### C DP, CP, ECENZ, FT4, TSH #### [facility] [address] [place] [address] Editing Computer Publisher: Shankar Ruffin DO BUN/CRE Ratio NOT REPORTED Normal 9-20 [facility] Comment on above: Performed By: #### C DP, CP, ECENZ, FT4, TSH #### [facility] [address] [place] [address] Editing Computer Publisher: Shankar Ruffin DO Staging: NOT REPORTED Normal [facility] Comment on above: Performed By: #### C DP, CP, ECENZ, FT4, TSH #### [facility] [address] [place] [address] Editing Computer Publisher: Shankar Ruffin DO Comprehensive Metabolic Pane [facility] 04-17-2020 Albumin [Mass/Vol] 3.8 g/dL 3.5 - 5.2 g/dL [place] Albumin/Globulin [Mass ratio] NOT REPORTED [place] ALP [Catalytic activity/Vol] 97 U/L 40 - 129 U/[place] ALT [Catalytic activity/Vol] 13 U/L 5 - 41 U/L [place] Anion gap [Moles/Vol] 11 mmol/L 9 - 17 mmol/L [place] AST [Catalytic activity/Vol] 14 U/L <40 [place] Bilirubin Ql (U) 0.48 mg/dL 0.3 - 1.2 mg/dL [place] Bun/Cre Ratio NOT REPORTED [place] Calcium [Mass/Vol] 8.9 mg/dL 8.6 - 10. 4 mg/dL [place] Chloride [Moles/Vol] 101 mmol/L 98 - 10 7 mmol/L [place] CO2 [Moles/Vol] 26 mmol/L 20 - 31 mmol/L [place] Creatinine [Mass/Vol] 0.82 mg/dL 0.7 - 1.2 mg/dL [place] GFR >60 >60 mL/min [place] GFR Non- >60 >60 mL/min [place] GFR/1.73 sq M predicted among non-blacks MDRD (S/P/Bld) [Vol rate/Area] NOT REPORTED [place] GFR/1.73 sq M predicted among non-blacks MDRD (S/P/Bld) [Vol rate/Area] [place] Comment on above: Average GFR for 70 o r more years old: 75 mL/min/1.73sq m Chronic Kidney Disease: <60 mL/min/1.73sq m Kidney failure: <15 mL/min/1.73sq m eGFR calculated using average adult body mass. Additional eGFR calculator available at: http://www.XimoXi/multiple_crcl_2012.htm Glucose [Mass/Vol] 231 mg/dL High 70 - 99 mg/dL [place] Potassium [Moles/Vol] 4.1 mmol/L 3.7 - 5.3 mmol/L [place] Protein [Mass/Vol] 6.7 g/dL 6.4 - 8.3 g/dL [place] Sodium [Moles/Vol] 138 mmol/L 135 - 144 mmol/L [place] Urea nitrogen [Mass/Vol] 19 mg/dL 8 - 23 mg/dL [place] Otheron 04-17-2020 Interpretation and review of laboratory results Abnormal [place] Immature granulocytes (Bld) [#/Vol] NOT REPORTED 0 % [place] T4, Freeon 04-17-2020 Thyroxine, Free 0.89 ng/dL Low 0.93 - 1.7 ng/dL [place] TROP/MYOGLOBINon 04-17-2020 Myoglobin [Mass/Vol] 40 ng/mL 28 - 72 ng/mL [place] Troponin I.cardiac [Mass/Vol] NOT REPORTED [place] Troponin T.cardiac [Mass/Vol] NOT REPORTED <0.03 ng/mL [place] Troponin, High Sensitivity 16 ng/L 0 - 22 ng/L [place] Comment on above: High Sensitivity Troponin values cannot be compared with other Troponin methodologies. Patients with high levels of Biotin oral intake (i.e >5mg/day) may have falsely decreased Troponin levels. Samples collected within 8 hours of biotin intake may require additional information for diagnosis. TSH without Reflexon 020 TSH Qn 2.24 m[IU]/L [place] Thyroid Stim. Horm.on 2019 TSH Qn 2.24 m[IU]/L Normal 0.30-5.00 [facility] Comment on above: Performed By: #### C DP, CP, ECENZ, FT4, TSH #### [facility] [address] [place] [address] Editing Computer Publisher: Shankar Ruffin DO Thyroxine, Freeon 04-17-2020 Thyroxine, Free 0.89 ng/dL Low 0.93-1.70 [facility] Comment on above: Performed By: #### C DP, CP, ECENZ, FT4, TSH #### [facility] [address] [place] [address] Editing Computer Publisher: Shankar Ruffin DO Trop/Myoglobinon 04-17-2020 Myoglobin [Mass/Vol] 40 ng/mL Normal 28-72 [facility] Comment on above: Performed By: #### C DP, CP, ECENZ, FT4, TSH #### [facility] [address] [place] [address] Editing Computer Publisher: Shankar Ruffin DO Troponin, High Sens 16 ng/L Normal 0-22 [facility] Comment on above: Result Comment: High Sensitivity Troponin values cannot be compared with other Troponin methodologies. Patients with high levels of Biotin oral intake (i.e >5mg/day) may have falsely decreased Troponin levels. Samples collected within 8 hours of biotin intake may require additional information for diagnosis. Performed By: #### C DP, CP, ECENZ, FT4, TSH #### [facility] [address] [place] [address] Editing Computer Publisher: Shankar Ruffin DO Troponin I.cardiac [Mass/Vol] NOT REPORTED Normal [facility] Comment on above: Performed By: #### C DP, CP, ECENZ, FT4, TSH #### [facility] [address] [place] [address] Editing Computer Publisher: Shankar Ruffin DO Troponin T.cardiac [Mass/Vol] NOT REPORTED Normal <0.03 [facility] Comment on above: Performed By: #### C DP, CP, ECENZ, FT4, TSH #### [facility] [address] [place] [address] Editing Computer Publisher: Shankar Ruffin DO UA w/Reflex Cultureon 2019 Acetoacetic Acid,Ur Negative Normal NEG [facility] Comment on above: Performed By: #### U AX #### [facility] [address] [place] [address] Editing Computer Publisher: Shankar Ruffin DO Bilirubin, SemiQt,Ur Negative Normal NEG [facility] Comment on above: Performed By: #### U AX #### [facility] [address] [place] [address] Editing Computer Publisher: Shankar Ruffin DO Color (U) YELLOW Normal YEL [facility] Comment on above: Performed By: #### U AX #### [facility] [address] [place] [address] Editing Computer Publisher: Shankar Ruffin DO Comment Microscopic exam not performed based on chemical results unless requested in Normal [facility] Comment on above: Result Comment: orig inal order. Performed By: #### U AX #### [facility] [address] [place] [address] Editing Computer Publisher: Shankar Ruffin DO Glucose Ql (U) 3+ Abnormal NEG [facility] Comment on above: Performed By: #### U AX #### [facility] [address] [place] [address] Editing Computer Publisher: Shankar Ruffin DO Hemoglobin, Ur Negative Normal NEG [facility] Comment on above: Performed By: #### U AX #### [facility] [address] [place] [address] Editing Computer Publisher: Shankar Ruffin DO Leukocyte esterase Test strip Ql (U) Negative Normal NEG [facility] Comment on above: Performed By: #### U AX #### [facility] [address] [place] [address] Editing Computer Publisher: Shankar Ruffin DO Nitrite,Ur Negative Normal NEG [facility] Comment on above: Performed By: #### U AX #### [facility] [address] [place] [address] Editing Computer Publisher: Shankar Ruffin DO pH (U) 5.5 [pH] Normal 5.0-8.0 [facility] Comment on above: Performed By: #### U AX #### [facility] [address] [place] [address] Editing Computer Publisher: Shankar Ruffin DO Protein Ql (U) Negative Normal NEG [facility] Comment on above: Performed By: #### U AX #### [facility] [address] [place] [address] Editing Computer Publisher: Shankar Ruffin DO Specific gravity (U) [Rel density] 1.027 Normal 1.000-1.03 0 [facility] Comment on above: Performed By: #### U AX #### [facility] [address] [place] [address] Editing Computer Publisher: Shankar Ruffin DO Turbidity CLEAR Normal CLEAR [facility] Comment on above: Performed By: #### U AX #### [facility] [address] [place] [address] Editing Computer Publisher: Shankar Ruffin DO Urobilinogen,Ur Normal Normal NORM [facility] Comment on above: Performed By: #### U AX #### [facility] [address] [place] [address] Editing Computer Publisher: Shankar Ruffin DO Urinalysis Reflex to Culture on 04-17-2020 Bilirubin Urine Negative NEGATIVE [facility] Color, UA YELLOW YELLOW [facility] [place] Glucose, Ur 3+ Abnormal NEGATIVE [facility] Interpretation and review of laboratory results Abnormal [facility] [place] Ketones Ql (U) Negative NEGATIVE [place] Leukocyte esterase Test strip Ql (U) Negative NEGATIVE [place] Nitrite, Urine Negative NEGATIVE [place], [place] pH, UA 5.5 [place] Protein (U) [Mass/Vol] Negative NEGATIVE [place] Specific [place], UA 1.027 [place], [place] Turbidity UA CLEAR CLEAR [place] Urinalysis Comments Microscopic exam not performed based on chemical results unless requested in original order. [place] Urine Hgb Negative NEGATIVE [place] Urobilinogen, Urine Normal [place] XR CHEST PORTABLEon 04-17-20 20 XR CHEST PORTABLE EXAMINATION: ONE XRAY VIEW OF THE CHEST 04/17/2020 12:51 pm COMPARISON: None. HISTORY: ORDERING SYSTEM PROVIDED HISTORY: Chest Pain TECHNOLOGIST PROVIDED HISTORY: Chest Pain Reason for Exam: chest pain Acuity: Acute Type of Exam: Initial FINDINGS: Sternotomy wires, left atrial appendage occlusion device and post CABG changes are seen. Heart is normal size. Lungs are clear. No free air. IMPRESSION: No acute process. Interpreted by: Avila Velazquez Jr., Signed by: Avila Velazquez Jr., 04/17/20 Final result Normal [facility] EXAMINATION: ONE XRA Y VIEW OF THE CHEST 04/17/2020 12:51 pm COMPARISON: None. HISTORY: ORDERING SYSTEM PROVIDED HISTORY: Chest Pain TECHNOLOGIST PROVIDED HISTORY: Chest Pain Reason for Exam: chest pain Acuity: Acute Type of Exam: Initial FINDINGS: Sternotomy wires, left atrial appendage occlusion device and post CABG changes are seen. Heart is normal size. Lungs are clear. No free air. [place] Roger, M[facility] Incoming Radiant Results From [employer]acs - 04/17/2020 1:07 PM EST EXAMINATION: ONE XRAY VIEW OF THE CHEST 04/17/2020 12:51 pm COMPARISON: None. HISTORY: ORDERING SYSTEM PROVIDED HISTORY: Chest Pain TECHNOLOGIST PROVIDED HISTORY: Chest Pain Reason for Exam: chest pain Acuity: Acute Type of Exam: Initial FINDINGS: Sternotomy wires, left atrial appendage occlusion device and post CABG changes are seen. Heart is normal size. Lungs are clear. No free air. IMPRESSION: No acute process. [place] No acute process. [facility]- [place] Progress Note-Physicianon Protein mass conc Result type: Heart a nd Vascular Office/Clinic Note Result date: July 19, 2018 08:07 EST Result status: Auth (Verified) Result title: Moderate Sedation Evaluation Template Performed by: Consuelo Preston MD on July 19, 2018 08:08 EST Verified by: Consuelo Preston MD on July 19, 2018 08:08 EST Encounter info: [id number], Javier Haynes, Inpatient, 07/18/2018 - 07/19/2018 Moderate Sedation Evaluation Template Patient: MAIN THOMAS Age: 72 years Sex: Male : 1945 Associated Diagnoses: None Author: Consuelo Preston MD Basic Information Airway Assessment: Class II: Visualization of the soft palate, fauces, uvula. Airway Abnormalities: None. ASA Classification: ASA 3: A patient with severe systemic disease. Risks/Benefits of IV Sedation: Have been explained. IV Sedation Plan: Patient agrees to IV sedation plan. Changes to History & Physical: Have been documented. History of Adverse/Allergic Reaction to Sedation: None. Normal [facility] Comment on above: Result Comment: Elec tronically Signed By: Consuelo Preston MD\.br\Date and Time Signed: 08/11/18 07:36 EDT Protein mass conc Result type: Heart a nd Vascular Office/Clinic Note Result date: July 19, 2018 08:46 EST Result status: Auth (Verified) Result title: Postoperative Note: General Performed by: Consuelo Preston MD on July 19, 2018 08:49 EST Verified by: Consuelo Preston MD on July 19, 2018 08:49 EST Encounter info: [id number], Javier Haynes, Inpatient, 07/18/2018 - 07/19/2018 Postoperative Note: General Patient: MAIN THOMAS Age: 72 years Sex: Male : 1945 Associated Diagnoses: None Author: Consuelo Preston MD Postoperative Information Date/ Time: 07/19/18 08:46:00 Preoperative Diagnosis: Non-ST elevation WV (NSTEMI) ([id number]-FL I21.4, Discharge, Medical). Postoperative Diagnosis: CAD (coronary artery disease) ([id number] I25.10, Discharge, Medical). Performed by: Consuelo Preston MD. Findings: Severe triple vessel CAD ( 80% mid LAD, 80% ostial diagonal, 90% ostial-proximal Ramus, 100% ostial RCA with left to right collaterals to PDA and PLVB. EF 25-30%. EDP 14 mmHg. Recommend CABG. . Estimated Blood Loss: Not significant. . Medications: See procedure log. . Complications: None. Normal [facility] Comment on above: Result Comment: Elec tronically Signed By: Consuelo Preston MD\.br\Date and Time Signed: 08/11/18 07:36 EDT Coding Summary.on 07-22-2018 Coding Summary. CODING DATE: 019 FINAL [facility] STATUS: Short-Term Hosp as IP PAYOR: [employer]per: 282 MS-DRG Acute myocardial infarction, discharged alive w/o CC/SKILLED NURSING Low Trim 0 High Trim 999 190 APR-DRG ACUTE MYOCARDIAL INFARCTION Severity of Illness Moderate Risk of Mortality Major ADMIT DX: I21.4 Non-ST elevation (NSTEMI) myocardial infarction REASON FOR VISIT DX: FINAL DX: PRINCIPAL: I21.4 Y Non-ST elevation (NSTEMI) myocardial infarction SECONDARY: I25.10 Y Atherosclerotic heart disease of [place] coronary artery without angina pectoris H53.8 N Other visual disturbances R51 N Headache R00.0 Y Tachycardia, unspecified R06.00 Y Dyspnea, unspecified E11.65 Y Type 2 diabetes mellitus with hyperglycemia I10 Y Essential (primary) hypertension I25.82 Y Chronic total occlusion of coronary artery E78.5 Y Hyperlipidemia, unspecified I25.2 1 Old myocardial infarction N40.0 Y Benign prostatic hyperplasia without lower urinary tract symptoms Z59.0 1 Homelessness Z95.5 1 Presence of coronary angioplasty implant and graft Z91.14 1 Patient's other noncompliance with medication regimen Z79.82 1 penitentiary (current) use of aspirin PROCEDURES DOCTOR NAME DATE [id number] Fluoroscopy of Multiple Consuelo Preston MD 07/19/2018 Coronary Arteries using Low Osmolar Contrast [id number] Measurement of Cardiac Sampling Consuelo Preston MD 07/19/2018 and Pressure, Left Heart, Percutaneous Approach [id number] Fluoroscopy of Left Heart using Consuelo Preston MD 07/19/2018 Low Osmolar Contrast [id number] Ultrasonography of Right and Consuelo Preston MD 07/18/2018 Left Heart NOTE: The code number assigned matches the documented diagnosis and / or procedure in the patient's chart. However, the narrative phrase printed from the coding software may appear abbreviated, or result in slightly different terminology. Revised Coded By: Mar Weir Revised Date Saved: 07/22/2018 01:41 pm Normal [facility] Echo Transthoracic w/ Contra ston 07-21-2018 Echo Transthoracic w/ Contrast Echocardiology Procedure Exam Date/Time Accession # Ordering Echo Transthoracic w/ 07/18/2018 16:27 EST [id number] EVITA QUINTERO, Napoleon P Contrast CPT code 31858 Reason for Exam (Echo Transthoracic w/ Contrast) Chest pain Report Patient Height: 180 cm Patient Weight: 89 kg Blood Pressure: 127/91 1. LVIDd m(3.8-5.8cm)w(3.8-5.2cm) 5.1 cm 2. LVIDs m(2.1-3.9cm)w(2.2-3.5cm) 4.9 cm 3. IVSd m(0.6-1.0cm) 1.2 cm 4. LVPWd (0.6-1.0cm) 0.57 cm 5. LAs (2.7-4.0cm) 2.8 cm 6. LA Vol. Index (16-34 mL/m2) 31 mL/m2 7. AOd Root (3.0-3.4cm) 3.2 cm 8. AO Annulus (2.3-2.6cm) - cm 9. AO Sinus of Valsalva (3.0-3.4cm) - cm 10. AO Sinotubular Junction (2.6-2.9cm) - cm 11. Ascending Aorta (2.7-3.0cm) - cm 12. RVIDd (2.0-3.0cm) 1.9 cm 13. AoV Peak Gradient - mmHg 14. AoV Mean Gradient - mmHg 15. LVOT Diam - cm REFERRING PHYSICIAN : Dr. Berger INDICATION : Non-ST elevation myocardial infarction. M-MODE/2D/DOPPLER REPORT : 1. Left Atrium: Normal in size. 2. Right Atrium: Normal in size. 3. Interatrial Septum: Not well visualized. 4. Left Ventricle: Moderately dilated with severe hypokinesis. The posterior wall was akinetic. The apex was akinetic. Only the base of the left ventricle is radha. There is Grade III diastolic dysfunction. Ejection fraction 20-25%. 5. Right Ventricle: Normal in size and systolic function. TAPSE 2.7 cm. 6. Mitral Valve: There is mild mitral annulus calcification. There is no mitral stenosis, but trivial mitral regurgitation. 7. Aortic Valve: Not well visualized. It is mildly sclerotic. There is no aortic stenosis or regurgitation. Echocardiology Procedure Exam Date/Time Accession # Ordering Dr. Perez Transthoracic w/ 07/18/2018 16:27 EST [id number] EVITA QUINTERO, Napoleon Tyler Contrast Report 8. Tricuspid Valve: Not well visualized. There is trivial tricuspid regurgitation. Inadequate Doppler to assess the right ventricular systolic pressure. 9. Pulmonic Valve: Not well visualized. There is trivial pulmonic regurgitation. 10. Pericardium: No effusion seen. 11. Aortic Root: Normal in size. SUMMARY/CONCLUSION : 1. Technically very limited study. 2. Definity was used. 3. Mild mitral annulus calcification. 4. Sclerotic aortic valve. 5. Ischemic cardiomyopathy with an ejection fraction of 20-25%. 6. Grade III diastolic dysfunction. FINAL REPORT Signed (Electronic Signature): 07/21/2018 9:15 pm Signed by: Consuelo Preston MD Transcribed by: melanie Technologist: LYNN Herrera [facility] CT Head or Brain w/o Contras ton 07-19-2018 CT Head or Brain w/o Contrast Exam Date/Time: 07/19/2018 12:52 EST Reason for Exam: Headache, acute, severe, worst MEDLEY of life;Other (please specify) Report IMPRESSION: MILD CEREBRAL VOLUME LOSS CHANGES. NO EVIDENCE OF RECENT INTRACRANIAL HEMORRHAGE. CLINICAL HISTORY: Headache. COMMENT: Unenhanced images were obtained. The ventricles and basal cisterns appear within normal limits. The sylvian fissures and cerebral cortical sulci bilaterally are mildly dilated. There is no mass effect nor midline shift. There are small bilateral basal ganglia calcifications. No definite abnormal attenuation is noted within the brain, but there is a suggestion of small subtle ill-defined areas of minimally decreased attenuation involving subcortical cerebral white matter bilaterally, suggesting small vessel ischemic changes. There is no evidence of recent intracranial hemorrhage nor extra-axial hematoma. No mass lesion is evident. No skull fracture is noted. There are calcifications of distal internal carotid arteries and distal vertebral arteries. All CT scans at this facility use dose modulation, iterative reconstruction, and/or weight based dosing when appropriate to reduce radiation dose to as low as reasonably achievable. FINAL REPORT Dictated: 07/19/2018 1:44 pm Cheng Goldsmith M.D. Signed (Electronic Signature): 07/19/2018 1:44 pm Signed by: Cheng Goldsmith M.D. Transcribed by: LYNN Technologist: JAAML Normal [facility] Hemoglobinon 07-19-2018 Hemoglobin mass conc (Bld) 15.5 g/dL Normal 13.5-17.5 [facility] Comment on above: Performed By: #### 2 127446, 8807702, 8097214, 20604839, 32602475, 81604245, 067665273 #### [facility] [address] [place] [address] VieE4wng 07-19-2018 Hemoglobin A1c/Hemoglobin.total mass fraction (Bld) 11.7 % High <=5.9 [facility] Comment on above: Performed By: #### 2 976745, 4488649, 1858894, 51207480, 24337267, 70851791, 505255702 #### [facility] [address] [place] [address] Lipid Panelon 07-19-2018 Cholesterol in HDL mass conc 33 mg/dL [facility] Comment on above: Result Comment: HDL > or equal to 60 mg/dL: Low cardiovascular risk HDL < 40 mg/dL : High cardiovascular risk Performed By: #### 2 591292, 1181571, 4067377, 75122890, 09903708, 10881906, 101813898 #### [facility] [address] [place] [address] Cholesterol in LDL mass conc 146 mg/dL High <=129 [facility] Comment on above: Performed By: #### 2 583115, 2054355, 5930745, 03520551, 80215934, 72213233, 136547228 #### [facility] [address] [place] [address] Cholesterol in VLDL mass conc 59 mg/dL High 7-40 [facility] Comment on above: Performed By: #### 2 197894, 1785165, 9964545, 40856968, 43482127, 41679107, 472886013 #### [facility] [address] [place] [address] Cholesterol mass conc 222 mg/dL High 120-200 [facility] Comment on above: Performed By: #### 2 358241, 3288444, 2118062, 48496679, 13546582, 94338266, 641449544 #### [facility] [address] [place] [address] Triglyceride mass conc 293 mg/dL High <=149 [facility] Comment on above: Performed By: #### 2 025721, 7416343, 9015134, 60938106, 45776797, 90705190, 526757733 #### [facility] [address] [place] [address] PTon 07-19-2018 INR Coag RelTime (PPP) 1.1 {INR} [facility] Comment on above: Result Comment: INR results are specifically intended to assess patients stabilized on long-term Anticoagulation therapy suggested INR?s ?Less Intensive Anticoagulation? 2.0 ? 3.0 Conventional Range 3.0 ? 4.5 Performed By: #### 2 617418, 7179008, 8604246, 37488565, 10804364, 57937730, 606885537 #### [facility] [address] [place] [address] Prothrombin time (PT) Coag time (PPP) 12.4 second(s) Normal 10.2-12.9 [facility] Comment on above: Performed By: #### 2 350362, 7512860, 3584582, 52102854, 41476231, 03894017, 888313927 #### [facility] [address] [place] [address] PTTon 07-19-2018 aPTT Coag time (PPP) 36.3 second(s) Normal 25.1-36.5 [facility] Comment on above: Result Comment: Hepa rin therapeutic range (represented by Anti-Factor Xa activity of 0.2 - 0.4 U/mL) corresponds to PTT of 56.6 - 109.0 sec. Performed By: #### 2 787317, 9164033, 2949731, 76658356, 99515640, 34505304, 750569538 #### [facility] [address] [place] [address] Platelet Counton 07-19-2018 Platelets #/vol (Bld) 207.0 E9/L Normal 150.0- 500. 0 [facility] Comment on above: Performed By: #### 2 753984, 2533305, 1845686, 97427281, 27345746, 87984823, 703945609 #### [facility] [address] [place] [address] Auto Diffon 07-18-2018 Basophils #/vol (Bld) 1.4 % Normal 0.0-2.0 [facility] Comment on above: Order Comment: Order Added by Discern Expert. Performed By: #### 2 665982, 7754509, 6630112, 42261801, 78179587, 98657809, 572930351 #### [facility] [address] [place] [address] Basophils/Leukocytes Auto Pure number fraction (Bld) 0.1 E9/L Normal 0.0-0.2 [facility] Comment on above: Order Comment: Order Added by Discern Expert. Performed By: #### 2 838534, 5470498, 1415199, 72215426, 86525732, 58793172, 088735787 #### [facility] [address] [place] [address] Eosinophils/100 WBC (Bld) 2.3 % Normal 0.0-8.0 [facility] Comment on above: Order Comment: Order Added by Discern Expert. Performed By: #### 2 691823, 4809598, 9459687, 50451701, 34615793, 96941576, 132382085 #### [facility] [address] [place] [address] Eosinophils/Leukocytes Auto Pure number fraction (Bld) 0.2 E9/L Normal 0.0-0.5 [facility] Comment on above: Order Comment: Order Added by Discern Expert. Performed By: #### 2 628789, 5710292, 0316027, 31021290, 13075033, 84221750, 409090430 #### [facility] [address] [place] [address] Lymphocytes/100 WBC (Bld) 24.8 % Normal 14.0-50.0 [facility] Comment on above: Order Comment: Order Added by Discern Expert. Performed By: #### 2 597563, 6776536, 1342232, 54534139, 27819376, 77498829, 031827972 #### [facility] [address] [place] [address] Lymphocytes/Leukocytes Auto Pure number fraction (Bld) 2.1 E9/L Normal 1.0-4.0 [facility] Comment on above: Order Comment: Order Added by Discern Expert. Performed By: #### 2 376050, 9355771, 2429471, 51600051, 68614264, 52267319, 681482350 #### [facility] [address] [place] [address] Monocytes/100 WBC (Bld) 6.9 % Normal 4.0-14.0 [facility] Comment on above: Order Comment: Order Added by Discern Expert. Performed By: #### 2 945107, 3441603, 8560446, 79205465, 51658122, 44764156, 728828565 #### [facility] [address] [place] [address] Monocytes/Leukocytes Auto Pure number fraction (Bld) 0.6 E9/L Normal 0.2-1.0 [facility] Comment on above: Order Comment: Order Added by Discern Expert. Performed By: #### 2 452195, 6314054, 4128124, 50171595, 77568864, 92842039, 295514634 #### [facility] [address] [place] [address] Neutrophils/100 WBC (Bld) 64.6 % Normal 36.0-75.0 [facility] Comment on above: Order Comment: Order Added by Discern Expert. Performed By: #### 2 167103, 7522512, 9187143, 71977049, 49436879, 19830524, 569393435 #### [facility] [address] [place] [address] Neutrophils/Leukocytes Auto Pure number fraction (Bld) 5.5 E9/L Normal 2.0-7.5 [facility] Comment on above: Order Comment: Order Added by Discern Expert. Performed By: #### 2 954087, 7115616, 9284615, 21340879, 18870963, 60495048, 647361418 #### [facility] [address] [place] [address] BMPon 07-18-2018 Creatinine mass conc 1.0 mg/dL Normal 0.5-1.3 [facility] Comment on above: Performed By: #### 2 151282, 8266064, 2927491, 87760601, 23287770, 11181694, 227145512 #### [facility] [address] [place] [address] Urea nitrogen mass conc 17 mg/dL Normal 5-21 [facility] Comment on above: Performed By: #### 2 909409, 8932630, 6025412, 65568117, 61186886, 42398638, 449926041 #### [facility] [address] [place] [address] Urea nitrogen/Creatinine mass ratio 17 No Units Normal 10-20 [facility] Comment on above: Performed By: #### 2 230298, 6765422, 0226817, 71152828, 98416298, 46601289, 173383821 #### [facility] [address] [place] [address] Anion gap molar conc 18 mmol/L High 6-16 [facility] Comment on above: Performed By: #### 2 988058, 5705912, 2883156, 65065637, 91397312, 41324801, 442206495 #### [facility] [address] [place] [address] Calcium mass conc 9.0 mg/dL Normal 8.9-11.1 [facility] Comment on above: Performed By: #### 2 611550, 2775953, 7254972, 68220043, 69136486, 99029896, 710027731 #### [facility] [address] [place] [address] Chloride molar conc 96 mmol/L Low 101-111 [facility] Comment on above: Performed By: #### 2 743412, 4571172, 0074404, 13929608, 95292793, 04380829, 966175592 #### [facility] [address] [place] [address] CO2 molar conc 22 mmol/L Normal 21-31 [facility] Comment on above: Performed By: #### 2 012004, 6778831, 0384087, 11247610, 88479152, 67824719, 561878748 #### [facility] [address] [place] [address] Glucose mass conc 386 mg/dL High 55-199 [facility] Comment on above: Result Comment: If t his glucose result represents a fasting glucose, interpretation should refer to the following reference range: 55-99 mg/dL Performed By: #### 2 190111, 8504153, 4058490, 55714099, 22555355, 52395853, 312146082 #### [facility] [address] [place] [address] Potassium molar conc 3.6 mmol/L Normal 3.5-5.3 [facility] Comment on above: Performed By: #### 2 711735, 4597780, 7159693, 60267758, 94998437, 21557607, 930287495 #### [facility] [address] [place] [address] Sodium molar conc 132 mmol/L Low 135-145 [facility] Comment on above: Performed By: #### 2 259019, 9306085, 4891978, 55623052, 16480855, 79196380, 720672451 #### [facility] [address] [place] [address] CBC w/ Auto Diffon Erythrocyte distribution width Ratio (RBC) 12.8 % Normal 10.9-14.2 [facility] Comment on above: Performed By: #### 2 465352, 0441768, 8036396, 54507714, 37067656, 50072126, 214641680 #### [facility] [address] [place] [address] Hematocrit Volume Fraction (Bld) 55.4 % High 37.7-49.0 [facility] Comment on above: Performed By: #### 2 644007, 2586905, 9447039, 65427001, 83637666, 32096439, 964141060 #### [facility] [address] [place] [address] Hemoglobin mass conc (Bld) 18.7 g/dL High 13.5-17.5 [facility] Comment on above: Performed By: #### 2 683188, 7888806, 2198041, 27061413, 95095449, 38141297, 307678970 #### [facility] [address] [place] [address] MCH Entitic mass (RBC) 31.0 pg Normal 27.0-34.0 [facility] Comment on above: Performed By: #### 2 981996, 6940014, 3449042, 76086976, 30854676, 88380717, 499986905 #### [facility] [address] [place] [address] MCHC mass conc (RBC) 33.8 g/dL Normal 33.3-35.7 [facility] Comment on above: Performed By: #### 2 895930, 1557085, 5087142, 01047354, 43626146, 35304323, 905141113 #### [facility] [address] [place] [address] MCV Entitic volume (RBC) 91.5 fL Normal 80.0-100.0 [facility] Comment on above: Performed By: #### 2 953341, 9719799, 9105791, 04123021, 63747129, 09690939, 113898956 #### [facility] [address] [place] [address] Platelet mean volume Entitic volume (Bld) 9.3 fL Normal 6.4-10.8 [facility] Comment on above: Performed By: #### 2 734334, 8706317, 9322575, 79424411, 86913216, 10892224, 972680732 #### [facility] [address] [place] [address] Platelets #/vol (Bld) 190.0 E9/L Normal 150.0- 500. 0 [facility] Comment on above: Performed By: #### 2 668394, 2795559, 4755391, 20055558, 53769115, 76015633, 205818682 #### [facility] [address] [place] [address] RBC #/vol (Bld) 6.0 E12/L High 4.3-5.9 [facility] Comment on above: Performed By: #### 2 812412, 7706719, 6245951, 88941644, 65182381, 00746476, 180168219 #### [facility] [address] [place] [address] WBC corrected for nucl RBC Auto #/vol (Bld) 8.6 E9/L Normal 4.0-11.0 [facility] Comment on above: Performed By: #### 2 277054, 5610084, 1766170, 32315625, 86163133, 43658947, 735026982 #### [facility] [address] [place] [address] Consultation Noteon 07-19-19 Consultation Note Patient: MAIN THOMAS Age: 72 years Sex: Male : 1945 Associated Diagnoses: None Author: Mohan QUINTERO, Consuelo Contreras Basic Information Source of history: Self. Chief Complaint 07/18/2018 13:12 EST I thought I was having a heart attack 07/18/2018 09:03 EST Patient presents with coplaints of chest pain that radiates to bilateral arms 30 min IP ARCHITECT. 325 mg of ASA given per [facility] with previous heart hisroty with stents History of Present Illness 72-year-old poor historian gentleman who was brought to the emergency department today due to chest discomfort. He has a history of diabetes, coronary artery disease, such as myocardial infarction and stenting in the past and a small CVA. Patient had breakfast this morning in the hotel and started feeling cold sensation in his chest and chest discomfort. he Couldn't really describe his discomfort. EKG done by EMS at the inferior myocardial infarction with sinus tachycardia at 115 beats per minute. EKG revealed sinus tachycardia. His blood pressure was elevated at 160/90. He received 5 mg intravenous Lopressor and his HR decreased to 90 and systolic blood pressure 130. His chest pain subsided. Review of Systems Constitutional: Chills, Fatigue. Respiratory: He denies hemoptysis.. Gastrointestinal: Nausea, Heartburn, He denies blood in stools or black stools.. Genitourinary: He denies hematuria.. Musculoskeletal: Joint pain. Health Status Allergies: Allergic Reactions (Selected) No Known Medication Allergies, Allergies (1) Active Reaction No Known Medication Allergies None Documented Current medications: (Selected) Inpatient Medications Ordered DuoNeb 2.5 mg-0.5 mg/3 mL Soln-Inh: 3 mL, Soln-Inh, Inhalation, QID PRN Shortness of breath or wheezing, Routine, Start date 07/18/18 11:40:00 EST HumaLOG Sliding Scale: 0-10 Units, Injection-Insulin, SubCutaneous, QIDACHS, Routine, Start date 07/18/18 16:30:00 EST Metoprolol tartrate 25 mg Tab: 25 mg = 1 tab(s), Tab, Oral, BID, NOW, Start date 07/18/18 10:58:00 EST Milk of Magnesia 8% Susp-Oral: 30 mL, Susp-Oral, Oral, q6hr PRN Constipation, Routine, Start date 07/18/18 9:29:00 EST Senokot 8.6 mg Tab: 17.2 mg = 2 tab(s), Tab, Oral, BID PRN Other (see comment), Routine, Start date 07/18/18 9:29:00 EST Zofran 4 mg/2 mL Injection: 4 mg = 2 mL, Injection, IV Push, q6hr PRN Nausea, Routine, Start date 07/18/18 9:29:00 EST acetaminophen 325 mg Tab: 650 mg = 2 tab(s), Tab, Oral, q6hr PRN Pain, Routine, Start date 07/18/18 9:29:00 EST amLODIPine 5 mg Tab: 5 mg = 1 tab(s), Tab, Oral, Daily, Routine, Start date 07/19/18 9:00:00 EST aspirin 81 mg Oral EC Tab: 81 mg = 1 tab(s), Tab-EC, Oral, Daily, Routine, Start date 07/19/18 9:00:00 EST atorvastatin 40 mg Tab: 80 mg = 2 tab(s), Tab, Oral, Bedtime, Routine, Start date 07/18/18 21:00:00 EST glipiZIDE 5 mg Tab: 10 mg = 2 tab(s), Tab, Oral, BIDAC, Routine, Start date 07/18/18 16:30:00 EST heparin additive 25,000 unit(s) + Dextrose 5% in Water intravenous solution 250 mL: 250 mL, IV, Titrate, Routine, Start date 07/18/18 13:13:00 EST, Total volume (mL): 250, Starting Dose: 12 unit/kg/hr, Use table #4 on Reference Text. hydrALAZINE 20 mg/mL Inj: 10 mg = 0.5 mL, Injection, IV Push, q6hr PRN Other (see comment), Routine, Start date 07/18/18 9:29:00 EST Documented Medications Documented Ginkgo Biloba: Oral, Daily Non-Formulary Medication: Oral, Daily Non-Formulary Medication: Oral, Daily Non-Formulary Medication: Oral, Daily amLODIPine 5 mg Tab: 5 mg = 1 tab(s), Oral, Daily aspirin 81 mg Chew Tab: 81 mg = 1 tab(s), Chewed, Daily, with food atorvastatin 80 mg Tab: 40 mg = 0.5 tab(s), Oral, Bedtime glipiZIDE 10 mg Tab: 10 mg = 1 tab(s), Oral, BIDAC, Medications (13) Active Scheduled: (6) amLODIPine 5 mg Tab [F] 5 mg 1 tab(s), Oral, Daily aspirin 81 mg Oral EC Tab [F] 81 mg 1 tab(s), Oral, Daily atorvastatin 40 mg Tab [F] 80 mg 2 tab(s), Oral, Bedtime glipiZIDE 5 mg Tab [F] 10 mg 2 tab(s), Oral, BIDAC insulin lispro (Humalog) 100 units/mL SubQ Inj 3 mL [F] 0-10 Units, SubCutaneous, QIDACHS metoprolol 25 mg Tab [F] 25 mg 1 tab(s), Oral, BID Continuous: (1) Heparin 25,000 units/250 mL-D5% PREMIX 25,000 unit(s) + Dextrose 5% Premix Diluent 250 mL 250 mL, IV PRN: (6) acetaminophen 325 mg Tab UD [F] 650 mg 2 tab(s), Oral, q6hr albuterol-ipratropium 2.5 mg-0.5 mg/3 mL SOLN [F] 3 mL, Inhalation, QID hydrALAZINE 20 mg/mL Inj [F] 10 mg 0.5 mL, IV Push, q6hr magnesium hydroxide 8% Oral Susp 30 mL [F] 30 mL, Oral, q6hr ondansetron 2 mg/mL Inj [F] 4 mg 2 mL, IV Push, q6hr senna 8.6 mg Tab [F] 17.2 mg 2 tab(s), Oral, BID Problem list: No problem items selected or recorded., No qualifying data available Histories Past Medical History: No active or resolved past medical history items have been selected or recorded. Family History: Entire family history is negative. Procedure history: Stent placement ([id number]) on 04/12/2005 at 59 Years. Comments: 07/18/2018 13:28 - Kelsie Damon RN Cardiac stents at [facility] Tonsillectomy ([id number]) in 1954 at 7 Years. Social History Social & Psychosocial Habits Alcohol 07/18/2018 Has alcohol use interfered with work or home life? No Do you ever drink more than intended? No Has anyone been hurt or at risk by your drinking? No Ready to change: No Concerns about alcohol use in household: No Comment: drank vodka 2 days ago - 07/18/2018 09:20 - Rickey Hernandez RN 07/18/2018 Use: Current Type: Beer, Liquor Frequency: 1-2 times per year Employment/School 07/18/2018 Status: Retired Home/Environment 07/18/2018 Lives with: Homeless, Living in van Home equipment: Glucose monitoring Smoker in household: No Safe place to go: No Family/Friends available to help: No Financial concerns: Yes Nutrition/Health 07/18/2018 Type of diet: Regular Caffeine intake amount: Coffee - 2 cups Substance Abuse Comment: Denies - 07/18/2018 13:41 - Kelsie Damon RN Tobacco 07/18/2018 Tobacco Use: Never (less than 100 in l Smokeless tobacco use: Never . Physical Examination Vital Signs 07/18/2018 16:00 EST Hourly Rounding Yes Promise to Return Yes 07/18/2018 15:01 EST Temperature Oral 37.1 DegC Heart Rate Monitored 77 bpm Systolic Blood Pressure 143 mmHg HI Diastolic Blood Pressure 80 mmHg Mean Arterial Pressure, Monitered 101 mmHg SpO2 97 % 07/18/2018 15:00 EST Hourly Rounding Yes Promise to Return Yes 07/18/2018 14:00 EST Hourly Rounding Yes Promise to Return Yes 07/18/2018 13:00 EST Hourly Rounding Yes Promise to Return Yes 07/18/2018 12:42 EST Apical Heart Rate 75 bpm 07/18/2018 12:35 EST SpO2 95 % 07/18/2018 12:16 EST Temperature Oral 36.4 DegC Peripheral Pulse Rate 87 bpm Respiratory Rate 18 br/min Systolic Blood Pressure 127 mmHg Diastolic Blood Pressure 91 mmHg HI Blood Pressure Location Left arm Hourly Rounding Yes Promise to Return Yes Blood Glucose, Capillary 419 mg/dL HI SpO2 95 % 07/18/2018 12:00 EST Hourly Rounding Yes 07/18/2018 11:00 EST Hourly Rounding Yes 07/18/2018 10:28 EST Heart Rate Monitored 90 bpm Respiratory Rate 16 br/min Systolic Blood Pressure 139 mmHg Diastolic Blood Pressure 96 mmHg HI Mean Arterial Pressure, Cuff 110 mmHg SpO2 93 % 07/18/2018 09:40 EST Heart Rate Monitored 95 bpm Respiratory Rate Monitored 17.0 br/min Systolic Blood Pressure 133 mmHg Diastolic Blood Pressure 96 mmHg HI Mean Arterial Pressure, Cuff 108 mmHg SpO2 97 % 07/18/2018 09:29 EST Apical Heart Rate 93 bpm 07/18/2018 09:15 EST Heart Rate Monitored 99 bpm Respiratory Rate 18 br/min Systolic Blood Pressure 143 mmHg HI Diastolic Blood Pressure 92 mmHg HI Mean Arterial Pressure, Cuff 109 mmHg SpO2 97 % 07/18/2018 09:10 EST Apical Heart Rate 118 bpm HI 07/18/2018 09:03 EST Temperature Tympanic 36.0 DegC LOW Peripheral Pulse Rate 114 bpm HI Respiratory Rate 20 br/min Systolic Blood Pressure 168 mmHg HI Diastolic Blood Pressure 98 mmHg HI SpO2 100 % Measurements from flowsheet : Measurements 07/18/2018 13:12 EST Height/Length Measured 180 cm Usual Weight 96 kg Body Mass Index Measured 27.59 kg/m2 Weight Measured 89.4 kg 07/18/2018 12:16 EST Height/Length Measured 180 cm Henderson Body Weight Calculated 74.992 kg BSA Measured 2.11 m2 Body Mass Index Measured 27.59 kg/m2 Weight Measured 89.4 kg 07/18/2018 09:03 EST Height/Length Measured 180 cm Body Mass Index Measured 28.8 kg/m2 Weight Measured 93.3 kg Vital Signs (last 24 hrs) Last Charted Temp Oral 37.1 DegC (JUL 18 15:01) Temp Tympanic L 36.0 DegC (JUL 18 09:03) Heart Rate Apical 75 bpm (JUL 18 12:42) Heart Rate Peripheral 87 bpm (MAR 08 12:16) Resp Rate 18 br/min (JUL 18:16) SBP H 143 mmHg (JUL 18:) DBP 80 mmHg (JUL 18:) SpO2 97 % (JUL 18:) Height 180 cm (JUL 18:) Weight 89.4 kg (JUL 18:) BMI 27.59 kg/m2 (JUL 18:) General: Alert and oriented, No acute distress. Neck: Supple, No carotid bruit, No jugular venous distention. Respiratory: Lungs are clear to auscultation. Cardiovascular: Regular rhythm, No murmur, No gallop, No edema, Palpable pedal pulses, Tachycardic with distant heart sounds. Gastrointestinal: Soft, Non-tender, Non-distended, Normal bowel sounds, No organomegaly, No abdominal bruit.. Integumentary: Warm, Dry. Review / Management Results review: Labs Most Recent Results Hgb H 18.7 (JUL 18) Hct H 55.4 (JUL 18) Cl 1.0 (JUL 18) . Troponin 0.57 EKG sinus tachycardia at 1 16 bpm, inferior Q's and poor R-wave progression. Impression and Plan Diagnosis Hypertension (MZA01-XB I10, Discharge, Medical). Tachycardia (IPT10-WA R00.0, Discharge, Medical). Hyperglycemia (MTI32-HP R73.9, Discharge, Medical). HLD (hyperlipidemia) (NHJ35-PQ E78.5, Admitting, Medical). Non-ST elevation [place] (NSTEMI) (LHG83-PM I21.4, Discharge, Medical). The patient had a non-ST elevation myocardial infarction. It could be due to sinus tachycardia and hypertension. Patient had a prior inferior myocardial infarction and stenting. He most likely have significant underlying coronary artery disease. We will continue the patient on aspirin, atorvastatin and amlodipine. I added metoprolol 25 mg twice daily to his medications. Patient will need left heart catheterization in a.m. to define his coronary anatomy and guide treatment if needed. Thank you for allowing me to share in the care of this patient. [facility] Comment on above: Result Comment: Elec tronically Signed By: Mohan QUINTERO, Consuelo Contreras\.br\Date and Time Signed: 07/18/18 17:04 EST ED Clinical Summaryon 2018 ED Clinical Summary (Inserted Image. Olga ble to display) [place] [id number] ED Clinical Summary Person Information Name: MAIN THOMAS/NewAkash Age: 72 Years : 1945 12:00 AM Sex: Male Language: Cameroonian PCP: Britany Silva DO Marital Status: Phone: [phone] Visit Id: Visit Reason: Chest pain; chest pain Speciality: Acuity: 2 Enc Type: Observation Med Service: Medical Arrival: 07/18/2018 9:02 AM Discharge: LOS: 000 02:11 Checkin: 07/18/2018 9:02 AM Checkout: 07/18/2018 11:13 AM Dispo Type: Admitted as IP to this [facility] EVENTS: Event Name Event Status Request Date/Time Start Date/Time Complete Date/Time Arrive Complete 07/18/2018 9:02 AM 07/18/2018 9:02 AM 07/18/2018 9:02 AM Document Home Meds Request 07/18/2018 9:02 AM Triage Complete 07/18/2018 9:02 AM 07/18/2018 9:10 AM 07/18/2018 9:10 AM Bed Assign Complete 07/18/2018 9:02 AM 07/18/2018 9:02 AM 07/18/2018 9:[address] Exam Complete 07/18/2018 9:02 AM 07/18/2018 9:03 AM 07/18/2018 9:03 AM RN Exam Complete 07/18/2018 9:02 AM 07/18/2018 9:20 AM 07/18/2018 9:20 AM EKG Complete 07/18/2018 9:02 AM 07/18/2018 9:04 AM Pending Labs Request 07/18/2018 9:03 AM Lab Complete 07/18/2018 9:03 AM 07/18/2018 9:39 AM Patient Care Request 07/18/2018 9:03 AM RT Request 07/18/2018 9:03 AM X-Ray Complete 07/18/2018 9:03 AM 07/18/2018 9:21 AM 07/18/2018 9:23 AM Registration Complete 07/18/2018 9:03 AM 07/18/2018 9:38 AM 07/18/2018 9:[address] Exam Complete 07/18/2018 9:04 AM 07/18/2018 9:04 AM 07/18/2018 9:04 AM Meds Admin Complete 07/18/2018 9:05 AM 07/18/2018 9:47 AM Patient Care Request 07/18/2018 9:07 AM Pending Labs Complete 07/18/2018 9:20 AM 07/18/2018 9:20 AM 07/18/2018 9:39 AM Lab Complete 07/18/2018 9:20 AM 07/18/2018 9:20 AM 07/18/2018 9:39 AM Meds Admin Complete 07/18/2018 9:22 AM 07/18/2018 10:30 AM Wet Read Request 07/18/2018 9:23 AM Patient Care Request 07/18/2018 9:29 AM Consult Request 07/18/2018 9:29 AM EKG Request 07/18/2018 9:29 AM Pending Labs Request 07/18/2018 9:29 AM Lab Request 07/18/2018 9:29 AM Meds Admin Request 07/18/2018 9:29 AM RT Request 07/18/2018 9:29 AM Bed Request Request 07/18/2018 9:29 AM Reg Bed Request Request 07/18/2018 9:29 AM Admit Request 07/18/2018 9:29 AM Pending Labs Complete 07/18/2018 9:31 AM 07/18/2018 9:31 AM 07/18/2018 9:31 AM Lab Complete 07/18/2018 9:31 AM 07/18/2018 9:31 AM 07/18/2018 9:31 AM Reg Complete Request 07/18/2018 9:38 AM Hospitalist Consult Request 07/18/2018 9:57 AM Patient Care Request 07/18/2018 10:31 AM Patient Care Request 07/18/2018 10:31 AM Patient Care Request 07/18/2018 10:31 AM Patient Care Request 07/18/2018 10:31 AM Meds Admin Request 07/18/2018 10:58 AM Meds Admin Request 07/18/2018 10:59 AM Patient Care Request 07/18/2018 10:59 AM ADDRESS: [facility] [phone] PHYS DOC NOTES: MEDICAL INFORMATION: Prescriptions Given: Home Meds Display amlodipine (amLODIPine 5 mg Tab) 5 mg = 1 tab(s), Oral, Daily aspirin (aspirin 81 mg Chew Tab) 81 mg = 1 tab(s), Chewed, Daily, with food atorvastatin (atorvastatin 80 mg Tab) 40 mg = 0.5 tab(s), Oral, Bedtime ginkgo (Ginkgo Biloba) Oral, Daily glipiZIDE (glipiZIDE 10 mg Tab) 10 mg = 1 tab(s), Oral, BIDAC Non-Formulary Medication Oral, Daily Non-Formulary Medication Oral, Daily Non-Formulary Medication Oral, Daily PATIENT EDUCATION INFORMATION: Instructions: Follow up: DIAGNOSIS: 1:Chest pain; 2:Hypertension; 3:Tachycardia; 4:Dyspnea; 5:Hyperglycemia [facility] ED Note-Physicianon 07-19-19 ED Note-Physician Basic Information Time Seen: Juanpablo Strange PA-C 07/18/2018 09:03 Chief Complaint Patient presents with coplaints of chest pain that radiates to bilateral arms 30 min IP ARCHITECT. 325 mg of ASA given per [facility] with previous heart hisroty with stents History of Present Illness 72-year-old male comes the ED for evaluation of chest pain. Patient developed midsternal chest pain with radiation to the arms, shortness of breath approximately 30 minutes prior to arrival. He presents via EMS to did call a STEMI alert based on prehospital EKG. Patient arrives with smash hand awaiting him at the bedside. Patient was too with aspirin prior to arrival. He does have a cardiac history of previous stents. Additional history of hypertension. Nonsmoker. No history of chronic lung disease. Denies any recent cough, congestion, fever, chills. No nausea or vomiting. Review of Systems A 10 point review of systems is negative except as noted above. Medical and Surgical History: Reviewed and noted Social history: Lives at home Tobacco: Denies Physical Exam Vitals & Measurements T: 36.0 ?C (Tympanic) HR: 90(Monitored) RR: 16 BP: 139/96 SpO2: 93% HT: 180 cm WT: 93.3 kg BMI: 28.8 Nurses notes and vital signs reviewed and patient is not hypoxic. General: The patient appears well and in no significant distress Patient is resting comfortably on the exam bed. Skin: Warm, dry, no pallor noted. Head: Atraumatic. Neck: No JVD. Eye: Normal conjunctiva. Ears, Nose, Mouth, and Throat: Moist mucous members. Cardiovascular: Strong distal pulses. No peripheral edema. Tachycardic Chest wall: Respiratory: Respirations are nonlabored. Clear to auscultation. Back: Normal range of motion, no CVA tenderness. Musculoskeletal: Normal ROM with no gross deformity. Gastrointestinal: Soft and nontender. Urological: Neurological: Awake and alert. No focal deficits. Follows commands. GCS 15. Psychiatric: Cooperative. Medical Decision Making Laboratory studies reviewed and noted. EKG is reviewed by cardiology, no evidence of acute event. Chest x-ray shows no acute infiltrate. Patient was hypertensive and tachycardic. Per cardiology recommendation he is treated with IV Lopressor, oral Lopressor and Norvasc. Vital signs are improving, as is the patient's discomfort. He will be admitted to the hospital for further evaluation and treatment. Critical Care Time: 40 minutes, critical care time is separate from any procedures that are performed. The following was considered in the determination of critical care but not limited to the level medical decision-making, intensive cardiac and/or respiratory monitor, frequent vital sign monitoring, evaluation of laboratory studies, evaluation of a radiographic studies, oxygen monitoring and constant monitoring. Note: [facility] is [facility]. Case is discussed with the SD, who has approved the patient being admitted to our facility for further evaluation and treatment. Assessment/Plan 1. Chest pain 2. Hypertension 3. Tachycardia 4. Dyspnea 5. Hyperglycemia Orders: Automated Diff Basic Metabolic Panel CBC w/ Auto Diff Communication Order ED Cardiac Monitoring ED Cardiac Monitoring ED Physician consult Hospitalist for continued care eGFR Oxygen Saturation Oxygen Therapy PT & PTT Saline Lock Insert Troponin 0 Hr. Troponin 3 Hr. Troponin 6 Hr. Troponin 9 Hr. XR Chest Single View Medications Administered Given metoprolol 1 mg/mL Inj, 5 mg, IV Push metoprolol 25 mg ER Tab, 25 mg, Oral Norvasc 5 mg Tab, 5 mg, Oral Disposition Plan Patient Discharge Condition Disposition: Admitted to the hospital Condition: Improved and stable Counseled: Patient and/or family were counseled to workup, results, treatment plan and follow-up recommendations Discharge Prescription List Prescriptions No active prescription medications Follow-up No qualifying data available Attestation Patient seen and evaluated by the physician merchandising assistant. Attending physician was present in the emergency department and supervised care. This report was transcribed using voice recognition software. Every effort was made to ensure accuracy, however, inadvertently computerized wedding day coordinator mistakes may be present. ATTENDING NOTE: Patient seen and evaluated with the physician merchandising assistant. I personally saw and evaluated the patient I participated in the history, physical examination medical decision-making and supervision of care. The chart and diagnostics have been reviewed. I agree with treatment plan. I performed a history and physical examination of the patient and discussed the management with the resident/PA. I reviewed the resident/PA's note and agree with the documented findings and plan of care. Jodi Bautista DO Problem List/Past Medical History Ongoing No qualifying data Historical No qualifying data Medications Inpatient acetaminophen 325 mg Tab, 650 mg= 2 tab(s), Oral, q6hr, PRN aspirin 81 mg Oral EC Tab, 81 mg= 1 tab(s), Oral, Daily heparin 5000 units/mL Inj, 5000 unit(s)= 1 mL, SubCutaneous, BID hydrALAZINE 20 mg/mL Inj, 10 mg= 0.5 mL, IV Push, q6hr, PRN Milk of Magnesia 8% Susp-Oral, 30 mL, Oral, q6hr, PRN Senokot 8.6 mg Tab, 17.2 mg= 2 tab(s), Oral, BID, PRN Zofran 4 mg/2 mL Injection, 4 mg= 2 mL, IV Push, q6hr, PRN Home No active home medications Allergies No Known Medication Allergies Social History Alcohol Alcohol use interferes with work or home: No. Drinks more than intended: No. Others hurt by drinking: No. Ready to change: No. Household alcohol concerns: No., 07/18/2018 Lab Results WBC: 8.6 E9/L (07/18/18 09:17:00 EST) RBC: 6 E12/L High (07/18/18 09:17:00 EST) Hgb: 18.7 gm/dL High (07/18/18 09:17:00 EST) Hct: 55.4 % High (07/18/18 09:17:00 EST) MCV: 91.5 fL (07/18/18 09:17:00 EST) MCH: 31 pg (07/18/18 09:17:00 EST) MCHC: 33.8 gm/dL (07/18/18 09:17:00 EST) RDW: 12.8 % (07/18/18 09:17:00 EST) Platelet: 190 E9/L (07/18/18 09:17:00 EST) MPV: 9.3 fL (07/18/18 09:17:00 EST) Neutro Auto: 64.6 % (07/18/18 09:17:00 EST) Lymph Auto: 24.8 % (07/18/18 09:17:00 EST) [place] Auto: 6.9 % (07/18/18 09:17:00 EST) Eos Auto: 2.3 % (07/18/18 09:17:00 EST) Basophil Auto: 1.4 % (07/18/18 09:17:00 EST) Neutro Absolute: 5.5 E9/L (07/18/18 09:17:00 EST) Lymph Absolute: 2.1 E9/L (07/18/18 09:17:00 EST) [place] Absolute: 0.6 E9/L (07/18/18 09:17:00 EST) Eos Absolute: 0.2 E9/L (07/18/18 09:17:00 EST) Basophil Absolute: 0.1 E9/L (07/18/18 09:17:00 EST) PT: 10.7 second(s) (07/18/18 09:17:00 EST) INR: 1 (07/18/18 09:17:00 EST) PTT: 31.2 second(s) (07/18/18 09:17:00 EST) Glucose Lvl: 386 mg/dL High (07/18/18 09:17:00 EST) BUN: 17 mg/dL (07/18/18 09:17:00 EST) Creatinine: 1 mg/dL (07/18/18 09:17:00 EST) eGFR: >60 (07/18/18 09:17:00 EST) eGFR AA: >60 (07/18/18 09:17:00 EST) BUN/Creat Ratio: 17 (07/18/18 09:17:00 EST) Sodium Lvl: 132 mmol/L Low (07/18/18 09:17:00 EST) Potassium Lvl: 3.6 mmol/L (07/18/18 09:17:00 EST) Chloride: 96 mmol/L Low (07/18/18 09:17:00 EST) CO2: 22 mmol/L (07/18/18 09:17:00 EST) AGAP: 18 mEq/L High (07/18/18 09:17:00 EST) Calcium Lvl: 9 mg/dL (07/18/18 09:17:00 EST) Troponin: <0.03 (07/18/18 09:17:00 EST) Diagnostic Results XR Chest Single View 07/18/18 09:56:49 NEGATIVE: No infiltrate, mass or other acute cardiopulmonary abnormality Read By: Juanpablo Strange PA-C 07/18/18 09:45:32 IMPRESSION: NO RADIOGRAPHIC EVIDENCE OF ACTIVE DISEASE IN THE CHEST. CLINICAL HISTORY: HISTORY OF CAD AND CORONARY ARTERY STENTS, PATIENT WITH MID STERNAL CHEST PAIN WITH PAIN RADIATION TO THE LEFT ARM COMPARISONS: None available. COMMENT: AP film of the chest demonstrates normal appearance of the heart. There is a tortuous aorta. Lungs appear clear. 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 Signed By: Merrick Monzon MD EKG Results EC07/18/18: ATRIAL FLUTTER/TACHYCARDIA WITH RAPID VENTRICULAR RESPONSE SEPTAL MYOCARDIAL INFARCTION, OF INDETERMINATE AGE INFERIOR MYOCARDIAL INFARCTION, OF INDETERMINATE AGE Sinus tachycardia at a rate of 115. Normal axis. No ST elevation. ABNORMAL ECG Signed By: Juanpablo Strange PA-C 07/18/2018 10:34:[address] Bautista. Prehospital EKG appeared to have some minor ST segment elevation in the inferior leads. EKGs were reviewed with cardiology Dr.Aoun Franco [facility] Comment on above: Result Comment: Elec tronically Signed By: Juanpablo Strange PA-C\.br\Date and Time Signed: 07/18/18 10:35 EST\.br\Electronically Co-Signed By: Jodi Bautista DO\.br\Date and Time Co-Signed: 07/18/18 11:59 EST ED Patient Education Noteon 07-18-2018 ED Patient Education Note [facility] ED Patient Summaryon 019 ED Patient Summary (Inserted Image. Olga ble to display) [place] [id number] Patient Discharge Instructions Person Information Name: MAIN THOMAS Age: 72 Years Arrival Date: 07/18/2018 9:02 AM Discharge Diagnosis: 1:Chest pain; 2:Hypertension; 3:Tachycardia; 4:Dyspnea; 5:Hyperglycemia Primary Care Physician: Britany Silva DO Provider Information Primary Provider: Jodi Bautista Advanced Assistant Men'S Soccer Coach:Juanpablo Strange PA-C The exam and treatment you received in the Emergency Department were for an urgent problem and are not intended as complete care. It is important that you follow up with a doctor, nurse practitioner, or physician?s merchandising assistant for ongoing care. If your symptoms become worse or you do not improve as expected and you are unable to reach your usual health care provider, you should return to the Emergency Department. We are available 24 hours a day. MAIN THOMAS has been given the following list of patient education materials, prescriptions and follow-up instructions: Follow-up Instructions: In the event that this physician does not participate in your insurance network, please consult with your insurance company to find a nearby participating provider. Patient Education Materials: A MESSAGE TO ALL PATIENTS REGARDING OPIOIDS PRESCRIPTION OPIOIDS: WHAT YOU NEED TO KNOW Prescription opioids can be used to help relieve [id number] pain and are often prescribed following a surgery or injury, or for certain health conditions. These medications can be an important part of the treatment but also come with serious risks. It is important to work with your healthcare provider to make sure you are getting the safest, most effective care. WHAT ARE THE RISKS AND SIDE EFFECTS OF OPIOID USE? Prescription opioids carry serious risks of addiction and overdose, especially with prolonged use. An opioid overdose, often marked by slowed breathing, can cause sudden . The use of prescription opioids can have a number of side effects as well, even when taken as directed: ? Tolerance?meaning you might need to take more of the medication for the same pain relief ? Physical dependence?meaning you have symptoms of withdrawal when a medication is stopped ? Increased sensitivity to pain ? Constipation ? Nausea, vomiting, and dry mouth ? Sleepiness and dizziness ? Confusion ? Depression ? Low levels of testosterone that can result in lower sex drive, energy, and strength ? Itching and sweating RISKS ARE GREATER WITH: ? History of drug misuse, substance use disorder, or overdose ? Mental health conditions (such as depression or anxiety) ? Sleep apnea ? Older age (65 years and older) ? Avoid alcohol while taking prescription opioids. Also, unless specifically advised by your health care provider, medications to avoid include: ? Benzodiazepines (such as Xanax or Valium) ? Muscle relaxants (such as Soma or Flexeril) ? Hypnotics (such as Ambien or Lunesta) ? Other prescription opioids KNOW YOUR OPTIONS Talk to your health care provider about ways to manage your pain that don?t involve prescription opioids. Some of these options may actually work better and have fewer risks and side effects. Options may include: ? Pain relievers such as acetaminophen, ibuprofen, and naproxen ? Some medication that are also used for depression or seizures ? Physical therapy and exercise ? Cognitive behavioral therapy, a psychological, goal-directed approach, in which patients learn how to modify physical, behavioral, and emotional triggers of pain and stress. IF YOU ARE PRESCRIBED OPIOIDS FOR PAIN: ? Never take opioids in greater amounts or more often than prescribed. ? Follow up with your primary health care provider. o Work together to create a plan on how to manage your pain. o Talk about ways to help manage your pain that don?t involve prescription opioids. o Talk about any and all concerns and side effects. ? Help prevent misuse and abuse o Never sell or share prescription opioids. o Never use another person?s prescription opioids. ? Store prescription opioids in a secure place and out of reach of others (this may include visitors, children, friends, and family). ? Safely dispose of unused prescription opioids: Find your community drug take-back program or your pharmacy mail-back program, or flush them down the toilet, following guidance from the Food and Drug Administration (www.fda.gov/Drugs/Resour cesForYou). ? Visit www.cdc.gov/drugoverdose to learn about the risks of opioids abuse and overdose. ? If you believe you may be struggling with addiction, tell your health healthcare facility administrator and ask for guidance or call SAMHSA?S National Helpline at 5-463-338-RSWS. s Source: [place] Department of Health and Human Services/Center for Disease Control & Prevention [facility] Medications Given: Medication Dose Route metoprolol 5.00 mg IV Push Left Hand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 recommending ambulation with use of surgical shoe. ?Infectious disease following on ceftriaxone and plan to transition to oral cefdinir for 2-week treatment if patient does not go for surgery. ?Vascular consult pending ? PT/OT recommending residential facility ? Pain management as needed RACHEL to be Ruled out vs progressive CKD ?Creatinine unchanged 1.88, Cr 0.7 last year ?Will obtain urine electrolytes ?Avoid nephrotoxins, renally dose medications - UA noninfectious ?Monitor BMP Chronic conditions Noncompliance with medications?patient takes no prescribed medications, this hasbeen consistent throughout his history and hospitalizations here 1.T2DM?hyperglycemia, uncontrolled, start long-acting insulin, continue SSI, Accu-Cheks before meals and at bedtime, hypoglycemic protocol. A1c pending 2.HTN?on metoprolol, controlled ,continue to monitor 3.HLD?atorvastatin DVT PPx-SCDs, Diet order-concentrated carb diet CODE STATUS-full code I personally reviewed the relevant history, the mejía elements of the physical exam, and discussed and formulated the plan of care with the nurse practitioner,and I confirm the nurse practitioner's documentation as written. Bharat Terrell DO Internal Medicine Hospitalist Documented By: Odalis Anand APRN 05/10/23 1231 Signed By: <Electronically signed by SILKE Anand> 05/10/23 1636 <Electronically signed by Bharat Terrell DO> 05/10/23 1642 [facility] Work Phone: 1(210) 212-992412-29-2023 Progress note Author Bartolo Thakur [facility] May 10, 2023 11:27am Note Date/Time May 10, 2023 11:27am [facility] [address] [place] [address] Infect. Disease Progress Note Signed Patient: Main Thomas MR#: [id number] : 1945 Acct:[id number] Age/Sex: 77 / M Adm Date: 3 Loc: 4N Room: [address] [place] [address] Type: ADM IN Attending Dr: Bharat Terrell DO Copies to: ~ Date of Service: 05/10/2023 Subjective Interval history: Patient essentially unchanged since yesterday but did refuse surgery on his fourth toe this morning. States he wants to see how antibiotics do by themselves. Exam Physical Exam Vital Signs: Temp Pulse Resp BP Pulse Ox O2 Del Method 98.3 F 74 16 119/72 95 Room Air 05/10/23 08:43 05/10/23 08:43 05/10/23 08:43 05/10/23 08:43 05/10/23 08:43 05/10/23 08:43 Const General: cooperative Nutritional Appearance: average body habitus Orientation: alert and awake HEENT Head: normal to inspection Mouth: oral mucosae normal Eyes General: appearance normal, both eyes and all related structures Neck Neck: normal visual inspection Chest Chest palpation & inspection: normal inspection of the chest Resp Effort & Inspection: normal respiratory effort Auscultation: clear to auscultation bilaterally Cardio Rate: regular rate Rhythm: regular rhythm GI Inspection: normal to inspection Palpation: soft and nontender Neuro General: patient alert and patient awake Extrem Other: Left fourth toe with distal ischemic changes unchanged. Dry gangrene Allergies and Medications Allergies and Active Meds Allergies No Known Allergies Allergy (Verified 05/08/23 20:39) Active Medications Acetaminophen (Acetaminophen 500 Mg Tablet) 1,000 mg PO Q6HR PRN PRN Reason: Pain Scale 1 - 3 or fever Stop: 05/08/24 02:11 Atorvastatin Calcium (Atorvastatin 40 Mg Tablet) 40 mg PO QPM [facility] Stop: 05/08/24 20:59 Last Admin: 05/09/23 21:33 Dose: 40 mg Dextrose (Dextrose 50% In Water 25 Gm/50 Ml Syringe) 0 gm IV-PUSH PRN PRN PRN Reason: Hypoglycemia Stop: 05/08/24 02:11 Glucose (Dextrose 40% Gel 15 Gm Tube) 0 gm PO PRN PRN PRN Reason: Hypoglycemia Stop: 05/08/24 02:11 Heparin Sodium (Porcine) (Heparin 5,000 Unit/Ml Vial) 5,000 unit SUBCUT BID [facility] Stop: 05/08/24 08:59 Last Admin: 05/10/23 08:59 Dose: 5,000 unit Ceftriaxone Sodium (Rocephin) 1 gm in 50 mls @ 100 mls/hr IV DAILY [facility] Last Admin: 05/10/23 08:59 Dose: 100 mls/hr Lactated Ringer's (Lactated Ringers) 1,000 mls @ 20 mls/hr IV .Q24H ONE Stop: 05/11/23 04:02 Last Admin: 05/10/23 04:27 Dose: 20 mls/hr Insulin Aspart (Insulin Aspart 300 Units/3 Ml Insuln.Pen) 0 units SUBCUT TID.WM.HS [facility]; Protocol Stop: 05/08/24 07:59 Last Admin: 05/10/23 09:00 Dose: 2 units Insulin Glargine (Insulin Glargine 300 Units/3 Ml Insuln.Pen) 10 units SUBCUT DAILY [facility] Stop: 05/08/24 11:14 Last Admin: 05/10/23 09:14 Dose: 10 units Lidocaine HCl (Lidocaine 1% 50 Ml Vial) 0.1 ml INTRADERMA PREOP PRN PRN Reason: Venipuncture x 1 Dose Metoprolol Tartrate (Metoprolol Tartrate 12.5 Mg Tablet) 12.5 mg PO BID [facility] Stop: 05/08/24 08:59 Last Admin: 05/10/23 08:59 Dose: 12.5 mg Nystatin (Nystatin 100,000 Unit/Gm Cream 30 Gm Tube) 1 applic TOPICAL BID SAMANTHA Stop: 05/08/24 08:59 Last Admin: 05/10/23 09:15 Dose: 1 applic Ondansetron HCl (Ondansetron 4 Mg/2 Ml Vial) 4 mg IV-PUSH Q6H PRN PRN Reason: Nausea And Vomiting Stop: 05/08/24 02:11 Sodium Chloride (Sodium Chloride 0.9 % 10 Ml Syringe) 10 ml IV-PUSH Q8H SAMANTHA Stop: 05/07/24 20:44 Last Admin: 05/10/23 04:27 Dose: Not Given Sodium Chloride (Sodium Chloride 0.9 % 10 Ml Syringe) 0 ml IV-PUSH QSHIFT SAMANTHA Stop: 05/08/24 05:59 Last Admin: 05/10/23 08:00 Dose: Not Given Sodium Chloride (Sodium Chloride 0.9 % 10 Ml Syringe) 0 ml IV-PUSH PRN PRN PRN Reason: Flush Stop: 05/09/24 04:02 A&P - Infectious Disease Assessment/Plan (1) Gangrene: Plan Patient remains on ceftriaxone. He refused surgery this morning. Wants to see how antibiotic worked. I tried to explain to him quite clearly that the distal tip essentially appears to have no blood supply based on the way it appears and that antibiotics are not likely being delivered to this area. He has a right toobserve and watch toe but risk of further gangrene and ischemia always has to dilip worry. He is currently on ceftriaxone. If patient does not want to have surgery at this time then will transition to oral cefdinir and give him a 2-weektreatment course with appropriate follow-up with podiatry. Documented By: Bartolo Thakur MD 05/10/231123 Signed By: <Electronically signed by MD Bartolo Thakur> 05/10/231126 [facility] Work Phone: 1(993) 376-156712-29-2023 Progress note Author Sarah Kim [facility] May 10, 2023 8:53am Note Date/Time May 10, 2023 8:53am [facility] [address] [place] [address] Podiatry Progress Note Signed Patient: Main Thomas MR#: [id number] : 1945 Acct:[id number] Age/Sex: 77 / M Adm Date: 3 Loc: 4N Room: [address] [place] [address] Type: ADM IN Attending Dr: Bharat Terrell DO Copies to: ~ Subjective Subjective Date of Service: Date of Service: 05/10/2023 Time of Service: 08:50 Narrative: Mr. Thomas is a 77 year old male was admitted due to left fourth toe gangrene. Patient states that his daughter trimmed his toenail and trim the nail short andhe started to develop darkness and discoloration along the end of the toe. The area has been closed and has not been draining. In the pre-op holding area patient states that for the past 2 days is toe is healing and he does not want to proceed with amputation. Exam Physical Exam Vital Signs: Temp Pulse Resp BP Pulse Ox O2 Del Method 98.3 F 74 16 119/72 95 Room Air 05/10/23 08:43 05/10/23 08:43 05/10/23 08:43 05/10/23 08:43 05/10/23 08:43 05/10/23 08:43 Narrative: General: Patient is seen at bedside and is awake and wearing no acute distress. Vascular: DP and PT pulses are nonpalpable to the Bilateral lower extremity. CFT is delayed. There is no evidence of cellulitis or streaking extending from the left fourth digit. Dermatology: The distal aspect of the left fourth digit is gangrenous which is dry. There is no evidence of active drainage. This extends along the DIPJ of the toe. There is slight surrounding hyperemia noted to the area just proximal to the gangrene along the left fourth digit. No other areas of open wounds are noted. Patient does have significant nail fungus with thickened nails 1 through5 bilateral. orthopedic: Muscle strength is intact to the bilateral lower extremity. Mild hammertoe deformities 2 through 5 bilateral Assessment/Plan (1) Gangrene of toe of left foot: Plan: Discussed with the patient the further options if he elects to cancel surgery. I did advise that no matter what the gangrene along the end of the toe will falloff. His toe is not going to completely heal due to the presence of gangrene encompassing the distal aspect of the toe. If you would like to proceed with conservative treatment he can apply Betadine daily over the toe and we did discuss the importance of keeping the toe dry to prevent the risk of infection. Infection is what has caused his current symptoms that did lead to him being admitted from the fourth toe so there is a higher risk that this could spread and cause other issues and patient continues to state that he does not want to proceed with surgery. We have canceled the scheduled surgery and orders were placed so that the patient can resume his normal diet. At this point in time wewill order local wound care and patient can ambulate with use of a surgical shoe. Podiatry will continue to follow this patient while admitted and can reschedule amputation if he changes his mind. I will discuss the case with Dr. Hodge as he is starting call today and will continue to follow the patient. Code(s): I96 - Gangrene, not elsewhere classified Documented By: Sarah Kim DPM 05/10/23 0 850 Signed By: <Electronically signed by TRUNG Kim> 05/10/23 0853 [facility] Work Phone: 1(364) 517-881412-28-2023 Consult note Author Sarah Kim [facility] May 09, 2023 1:14pm Note Date/Time May 09, 2023 12:18pm [facility] [address] [place] [address] Podiatry Consult Note Signed Patient: Main Thomas MR#: [id number] : 1945 Acct:[id number] Age/Sex: 77 / M Adm Date: 3 Loc: 4N Room: 1T6299-1 Type: ADM IN Attending Dr: Bharat Terrell DO Copies to: TRUNG Grossman DO~ HPI Data of Consult Consult Date: 05/09/23 Requesting Physician: Bharat Terrell DO Primary Care Provider: Juan Diego Kim DO Consult Narrative Reason for consult: left 4th toe gangrene History of present illness: Mr. Thomas is a 77 year old male was admitted due to left fourth toe gangrene. Patient states that his daughter trimmed his toenail and trim the nail short andhe started to develop darkness and discoloration along the end of the toe. The area has been closed and has not been draining. He does not provide much other history. No other complaints. Review of Systems Review of Systems All other systems reviewed & are negative unless noted below or in HPI [facility] Medical History (Updated 05/09/23 @ 13:11 by Sarah Kim DPM) Diabetes History of heart attack HTN (hypertension) Hyperlipemia Surgical History History of heart artery stent History of quadruple bypass Family History (Updated 05/09/23 @ 02:04 by Radha Kim APRN) Other Adopted Social History Smoking Status: Never smoker Substance Use Type: None Substance Abuse Comment: occasional Social History Comments: Patient states that his daughter Lucy lives in his shed with him. Meds Medications and Allergies Allergies No Known Allergies Allergy (Verified 05/08/23 20:39) Home Medications amlodipine 5 mg tablet 5 mg PO DAILY #30 tabs 12/05/17 [Rx Confirmed 10/11/21] aspirin 81 mg chewable tablet 81 mg PO DAILY 90 days #90 tabs 12/05/17 [Rx Confirmed 10/11/21] atorvastatin 40 mg tablet 40 mg PO QPM 90 days #90 tabs 12/05/17 [Rx Confirmed 10/11/21] insulin detemir U-100 100 unit/mL (3 mL) subcutaneous pen (Levemir FlexTouch U- 100 Insulin) 24 units (0.24 mL) subcut QHS 30 days #7.2 mL 05/22/21 [Rx Confirmed 10/11/21] Exam Physical Exam Vital Signs: Temp Pulse Resp BP Pulse Ox O2 Del Method 98.4 F 85 12 97/58 L 93 L Room Air 05/09/23 12:00 05/09/23 12:00 05/09/23 12:00 05/09/23 12:00 05/09/23 12:00 05/09/23 08:00 Narrative: General: Patient is seen at bedside and is awake and wearing no acute distress. Vascular: DP and PT pulses are nonpalpable to the Bilateral lower extremity. CFT is delayed. There is no evidence of cellulitis or streaking extending from the left fourth digit. Dermatology: The distal aspect of the left fourth digit is gangrenous which is dry. There is no evidence of active drainage. This extends along the DIPJ of the toe. There is slight surrounding hyperemia noted to the area just proximal to the gangrene along the left fourth digit. No other areas of open wounds are noted. Patient does have significant nail fungus with thickened nails 1 through5 bilateral. orthopedic: Muscle strength is intact to the bilateral lower extremity. Mild hammertoe deformities 2 through 5 bilateral Results Labs 05/09/23 05:33 05/09/23 05:33 ESR 43 mm/hr (0-19) H 05/08/23 23:45 Assessment/Plan (1) Gangrene of toe of left foot: Plan: Discussed with the patient the findings the examination options for further treatment. Advised patient that due to the presence of gangrene and nonviable tissue the best option would be to proceed with a partial amputation of the leftfourth digit. Patient is in agreement with this plan. We discussed the risks, benefits and alternatives relative to the proposed surgical procedure. All questions were answered. No guarantees were given. Patient requested to proceed. I did request vascular surgery consultation but there is no known callfor vascular surgery this week. We will proceed with amputation and if there are any issues in regards to healing and it did discuss that the patient may require further vascular workup and intervention. Patient will be placed nothing by mouth at midnight with plan for surgery tomorrow at 9:30 AM. Code(s): I96 - Gangrene, not elsewhere classified Documented By: Sarah Kim DPM 05/09/23 1 217 Signed By: <Electronically signed by TRUNG Kim> 05/09/23 4013 [facility] Work Phone: 1([phone] 613-667012-28-2023 Consult note Author Bartolo Thakur [facility] May 09, 2023 9:07am Note Date/Time May 09, 2023 9:02am [facility] [address] [place] [address] Infect. Disease Consult Note Signed Patient: Main Thomas MR#: [id number] : 1945 Acct:[id number] Age/Sex: 77 / M Adm Date: 3 Loc: 4N Room: 2G0500-2 Type: ADM IN Attending Dr: Bharat Terrell DO Copies to: DO Bartolo Hernandez MD~ HPI Data of Consult Consult date: 05/09/23 Requesting Physician: Bharat Terrell DO Primary Care Provider: Juan Diego Kim DO Consult Narrative History of present illness: Mr. Thomas is a 77 year old male with type 2 diabetes who present to the hospital with a left foot issue with the left fourth toe being discolored essentially black. White count slightly up on admission. I was consulted for gangrene. Patient denies any significant pain or swelling of the foot itself. CC: Bharat Terrell DO Review of Systems Review of Systems All other systems reviewed & are negative unless noted below or in HPI [facility] Medical History Diabetes History of heart attack HTN (hypertension) Hyperlipemia Surgical History History of heart artery stent History of quadruple bypass Family History (Updated 05/09/23 @ 02:04 by Radha Kim APRN) Other Adopted Social History Smoking Status: Never smoker Substance Use Type: None Substance Abuse Comment: occasional Social History Comments: Patient states that his daughter Lucy lives in his shed with him. Allergies and Medications Allergies and Active Meds Allergies No Known Allergies Allergy (Verified 05/08/23 20:39) Active Medications Acetaminophen (Acetaminophen 500 Mg Tablet) 1,000 mg PO Q6HR PRN PRN Reason: Pain Scale 1 - 3 or fever Stop: 05/08/24 02:11 Atorvastatin Calcium (Atorvastatin 40 Mg Tablet) 40 mg PO QPM SAMANTHA Stop: 05/08/24 20:59 Dextrose (Dextrose 50% In Water 25 Gm/50 Ml Syringe) 0 gm IV-PUSH PRN PRN PRN Reason: Hypoglycemia Stop: 05/08/24 02:11 Glucose (Dextrose 40% Gel 15 Gm Tube) 0 gm PO PRN PRN PRN Reason: Hypoglycemia Stop: 05/08/24 02:11 Heparin Sodium (Porcine) (Heparin 5,000 Unit/Ml Vial) 5,000 unit SUBCUT BID [facility] Stop: 05/08/24 08:59 Lactated Ringer's (Lactated Ringers) 1,000 mls @ 75 mls/hr IV .[id number] [facility] Stop: 05/09/23 15:34 Last Admin: 05/09/23 04:26 Dose: 75 mls/hr Ceftaroline Fosamil (Teflaro) 400 mg in 100 mls @ 200 mls/hr IV Q12H [facility] Insulin Aspart (Insulin Aspart 300 Units/3 Ml Insuln.Pen) 0 units SUBCUT TID.WM.HS [facility]; Protocol Stop: 05/08/24 07:59 Last Admin: 05/09/23 08:29 Dose: 4 units Metoprolol Tartrate (Metoprolol Tartrate 12.5 Mg Tablet) 12.5 mg PO BID [facility] Stop: 05/08/24 08:59 Last Admin: 05/09/23 08:29 Dose: 12.5 mg Nystatin (Nystatin 100,000 Unit/Gm Cream 30 Gm Tube) 1 applic TOPICAL BID [facility] Stop: 05/08/24 08:59 Ondansetron HCl (Ondansetron 4 Mg/2 Ml Vial) 4 mg IV-PUSH Q6H PRN PRN Reason: Nausea And Vomiting Stop: 05/08/24 02:11 Sodium Chloride (Sodium Chloride 0.9 % 10 Ml Syringe) 10 ml IV-PUSH Q8H [facility] Stop: 05/07/24 20:44 Last Admin: 05/09/23 04:27 Dose: 10 ml Sodium Chloride (Sodium Chloride 0.9 % 10 Ml Syringe) 0 ml IV-PUSH QSHIFT [facility] Stop: 05/08/24 05:59 Last Admin: 05/09/23 06:22 Dose: Not Given Exam Physical Exam Vital Signs: Vital Signs Temp Pulse Pulse Resp BP BP Pulse Ox 05/09/23 01:56 98.3 F 89 113/76 95 05/09/23 04:07 05/09/23 01:30 98.3 F 18 113/76 95 05/09/23 01:00 96 H 20 148/119 H 98 05/08/23 22:25 101 H 18 129/47 L 98 05/08/23 20:36 98.2 F 100 H 18 131/94 97 O2 Del Method 05/09/23 01:56 05/09/23 04:07 Room Air 05/09/23 01:30 Room Air 05/09/23 01:00 Room Air 05/08/23 22:25 Room Air 05/08/23 20:36 Room Air Intake and Output 05/08/23 05/09/23 05/09/23 23:59 07:59 15:59 Intake Total 1200 / 1200 Output Total 0 / 0 Balance 1200 / 1200 Intake: IV 1100 / 1100 Ceftaroline 600Mg-*Ns* 600 mg 100 / 100 In 100 ml @ 200 mls/hr IV ONCE ONE Rx#:[id number] Sodium Chloride 0.9% 1,000 ml 1 1000 / 1000 ,000 ml @ 999 mls/hr IV .Q1H1M ONE Rx#:[id number] Oral 100 / 100 Output: Urine 0 / 0 Other: # Unmeasured Voids 2 Weight 96.162 kg 87.4 kg Date of Last Bowel Movement 05/08/23 Patient Weight 05/09/23 23:59 Weight 87.4 kg Const General: cooperative Nutritional Appearance: average body habitus Orientation: alert and awake HEENT Head: normal to inspection Mouth: oral mucosae normal Eyes General: appearance normal, both eyes and all related structures Neck Neck: normal visual inspection Chest Chest palpation & inspection: normal inspection of the chest Resp Effort & Inspection: normal respiratory effort Auscultation: clear to auscultation bilaterally Cardio Rate: regular rate Rhythm: regular rhythm GI Inspection: normal to inspection Palpation: soft and nontender Neuro General: patient alert and patient awake Extrem Other: Left foot essentially not swollen. No cellulitis present. Left fourth toe necrotic with dry gangrene. Results Labs 05/09/23 05:33 05/09/23 05:33 Labs: 05/08/23 23:45: Corrected WBC 13.3 H, Uncorrected WBC Count 13.3 H 05/08/23 23:45: BUN 26 H, Creatinine 1.86 H 05/09/23 05:33: Corrected WBC 11.4 H, Uncorrected WBC Count 11.4 H 05/09/23 05:33: BUN 26 H, Creatinine 1.88 H Imaging and Cardiology Status: report viewed by me Results Comments: Xray foot: IMPRESSION: NO ACUTE BONY FINDINGS. A&P - Infectious Disease (1) Gangrene: Plan Patient's left fourth toe has dry gangrene. No proximal cellulitis present. Nosignificant swelling present. No systemic symptoms of infection. He is on empiric broad-spectrum antibiotic therapy. Presume he will need amputation. Podiatry has been consulted. PVRs were last in May 2021. I do not see any history of concern for MRSA. I do not see any evidence of cellulitis in general. Will switch Teflaro to ceftriaxone but based on appearance of toe antibiotics probably of minimal benefit here Documented By: Bartolo Thakur MD 05/09/23901 Signed By: <Electronically signed by MD Bartolo Thakur> 05/09/23 0907 [facility] Work Phone: [phone] 298-370412-28-2023 History and physical note Author Tara Rodney [facility] May 09, 2023 7:13am Note Date/Time May 09, 2023 1:49am [facility] [address] [place] [address] Hospitalist H&P Signed Patient: Main Thomas MR#: [id number] : 1945 Acct:[id number] Age/Sex: 77 / M Adm Date: 3 Loc: 4N Room: [address] [place] [address] Type: ADM IN Attending Dr: Tara Rodney MD Copies to: MD Radha Kc, [employer]~ HPI DATE OF EXAMINATION: 05/09/23 CHIEF COMPLAINT: toe is black HISTORY OF PRESENT ILLNESS: Mr. Thomas is a 77-year-old male with a PMH of T2DM, HTN, HLD, noncompliance, TIA/CVA that presented to the emergency room tonight with complaints of a toe onhis left foot is black. Patient reports that his daughter cut his toenail too short he has been spraying it with colloidal silver and putting bio plasma on itand is not getting any better. He states callus formed over top of the wound. He denies pain, denies fever or chills, chest pain or shortness of breath, nausea or vomiting. He also states that the only medications he takes at home are colloidal silver and bio plasma. States he has been prescribed medications but he does not take them. X-ray of left foot is pending final read. CBC with white blood cell count of 13.3, ESR 43. BMP with a sodium of 131, BUN 26, creatinine 1.86, glucose 416. CRP 4.9. Patient was medicated with 1 L saline bolus, Teflaro. [facility] the care of the hospitalist team for further evaluation and treatment. Review of Systems Review of Systems Review of systems: A 10 point review of systems was obtained, negative unless noted in the HPI or below. [facility] Medical History Diabetes History of heart attack HTN (hypertension) Hyperlipemia Surgical History History of heart artery stent History of quadruple bypass Family History (Updated 05/09/23 @ 02:04 by Radha Kim APRN) Other Adopted Social History Marital Status: Smoking Status: Never smoker Substance Use Type: Alcohol Substance Abuse Comment: occasional Social History Comments: Patient denied smoking or any other drug use reported occasional/social use of beer about 5 beers per week last reported 3 days ago. Meds Medications and Allergies Allergies No Known Allergies Allergy (Verified 05/08/23 20:39) Home Medications amlodipine 5 mg tablet 5 mg PO DAILY #30 tabs 12/05/17 [Rx Confirmed 10/11/21] aspirin 81 mg chewable tablet 81 mg PO DAILY 90 days #90 tabs 12/05/17 [Rx Confirmed 10/11/21] atorvastatin 40 mg tablet 40 mg PO QPM 90 days #90 tabs 12/05/17 [Rx Confirmed 10/11/21] insulin detemir U-100 100 unit/mL (3 mL) subcutaneous pen (Levemir FlexTouch U- 100 Insulin) 24 units (0.24 mL) subcut QHS 30 days #7.2 mL 05/22/21 [Rx Confirmed 10/11/21] Exam Physical Exam Vital Signs: Temp Pulse Resp BP Pulse Ox O2 Del Method 98.2 F 96 H 20 148/119 H 98 Room Air 05/08/23 20:36 05/09/23 01:00 05/09/23 01:00 05/09/23 01:00 05/09/23 01:00 05/09/23 01:00 Narrative: CONST- Appears well -developed and well nourished. HEAD - Normocephalic and atraumatic EENT-Sclera nonicteric, conjunctive are non-erythemic, moist oral mucosa, pharynx clear NECK-Supple, no cervical lymphadenopathy CARDIAC-normal rate, regular rhythm, S1 & S2. PULM-diminished without wheeze or rhonchi, RA, no accessory muscle use or cough noted ABD - Soft. Bowel sounds are normal. No distention. No tenderness EXTREM-no edema BLE calves, nontender, fourth left metatarsal necrotic to the distal portion, no drainage noted SKIN- W/D good turgor MS- MAEX4 spontaneously with equal with equal strength NEURO- A&Ox3 speech clear and tongue midline, equal facial symmetry, no focal motor deficits PSYCH-Mood, affect, and behavior appropriate Results Lab Results Labs: Laboratory Last Values Corrected WBC 13.3 X10E3/uL (4.1-10.5) H 05/08/23 23:45 Uncorrected WBC Count 13.3 x10E3/uL (4.1-10.5) H 05/08/23 23:45 RBC 5.05 X10E6/uL (3.90-5.60) 05/08/23 23:45 Hgb 14.9 g/dL (13.0-17.0) 05/08/23 23:45 Hct 44.9 % (38.8-50.0) 05/08/23 23:45 MCV 88.9 fl (83.5-101) 05/08/23 23:45 MCH 29.6 pg (27.5-35.2) 05/08/23 23:45 MCHC 33.2 g/dL (32.5-35.6) 05/08/23 23:45 RDW 13.7 % (12.0-14.8) 05/08/23 23:45 Plt Count 245 x10E3/uL (150-450) 05/08/23 23:45 MPV 8.6 fl (6.6-10.1) 05/08/23 23:45 Neut % (Auto) 86.0 % (.) 05/08/23 23:45 Lymph % (Auto) 7.3 % (.) 05/08/23 23:45 [place] % (Auto) 5.8 % (.) 05/08/23 23:45 Eos % (Auto) 0.3 % (.) 05/08/23 23:45 Baso % (Auto) 0.6 % (.) 05/08/23 23:45 Nucleat RBC Rel Count 0.1 /100 WBC (0-0.5) 05/08/23 23:45 Neut # (Auto) 11.5 x10E3/uL (1.8-7.7) H 05/08/23 23:45 Lymph # (Auto) 1.0 x10E3/uL (1.00-4.8) 05/08/23 23:45 [place] # (Auto) 0.8 x10E3/uL (0.0-0.8) 05/08/23 23:45 Eos # (Auto) 0.0 x10E3/uL (0.0-0.45) 05/08/23 23:45 Baso # (Auto) 0.1 x10E3/uL

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
--- OUTSIDE RECORDS SUMMARY | 2025-01-21 22:51 | XMS_ITS | Clinical Summary ---
Author Organization [facility] Address [address] [place] [address] Care Team Providers Care Bacon Slicer Name Role Phone Unavailable Primary Care Provider Unavailabl e Source Comments The following information is NOT included in Care Everywhere downloads:Psychiatric notes, ECG results, Cardiac Rehab notes, Pulmonary Function notes, data from SmartForms (includes but not limited toPregnancy data,audiograms, eye exams, pre-surgical evaluation notes, well-child exam data).[facility] Social History Tobacco Use Types Packs/Day Years Used Date Smoking Tobacco: Never Assessed Sex and Gender Information Value Date Recorded Sex Assigned at Not on file Legal Sex Male 3:09 PM EDT Gender Identity Not on file Sexual Orientation Not on file Plan of Treatment Health Maintenance Due Date Last Done Comments Foot Exam 1945 Eye Exam 1945 Urine Protein (microalbumin) 1945 Tdap Booster 1962 Hepatitis A (HAV) Vaccine (optional start 19+ years) 11/11/1963 Pneumococcal Vaccine(s) (50+ yrs) (1 of 2 - PCV) 11/11/1963 Tetanus (Td or Tdap) Booster 11/11/1963 Shingles (RZV) Vaccine (1 of 2) 1994 Hepatitis B (HBV) Vaccine (optional start 60+ years) 2004 RSV vaccine (adult) (1 - 1-d ose 75+ series) 11/11/2019 Basic Metabolic Panel 05/11/2024 05/11/2023 , 03/29/2022, 04/17/2020, Additional history exists Lipid Profile 05/16/2024 05/16/2023, 04/0 06/2018, 07/20/2018 COVID-19 Vaccine ( - 2023-2 5 season) 2025 Influenza Vaccine (#1) 2025 Hemoglobin A1C 02/20/2025 08/21/2024, 07/20/2018
--- NOTE | 2025-01-21 23:03 | XR_ITS ---
[address] [address] Patient Name: MAIN SAUCEDA MRN: [id number] date: 1945 Sex: M Assigned Patient Location: Current Patient Location: ED.MAIN Accession/Order Number: [id number] Exam Date: 01/21/2025 23:20 Report Date: 01/21/2025 23:53 At the request of: JERONIMO TUCKER MD Procedure: XR chest 1V PA CHEST: CLINICAL HISTORY: cough COMPARISON: 09/25/2022 Mildly enlarged cardiomediastinal silhouette. Left atrial exclusion device. Sternotomy wires. Perihilar pulmonary vasculature and interstitial edema. No effusion. No pneumothorax. XR/XR chest 1V IMPRESSION: Findings of CHF/pulmonary edema. Impression dictated by: Bang Angela M.D. 01/21/2025 11:53 PM Dictation Location: [place] [address] Electronically authenticated by: [id number] Y Date: 01/21/2025 23:53
--- NOTE | 2025-01-21 23:05 | ECG_ITS ---
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: : 1945 Requested By: [id number] Order Number: [id number] Reading MD: CAILIN ALLISON Measurements Intervals [place] Rate: 84 P: -74550 IA: -03097 QRS: 137 QRSD: 116 T: -11 QT: 370 QTc: 410 Interpretive Statements Probable ectopic atrial rhythm 3234 Anteroseptal myocardial infarction, age undetermined 3632 Inferior myocardial infarction, probably recent 5120 Possible right ventricular hypertrophy 9150 abnormal ECG Compared to ECG 08/21/2024 13:28:29 Sinus rhythm no longer present Atrial premature complex(es) no longer present First degree AV block no longer present Myocardial infarct finding still present Electronically Signed On 01-25-2025 16:56:08 EDT by CAILIN ALLISON
--- NOTE | 2025-01-21 23:05 | ED.GENADUL1 ---
HPI HPI - General Adult General Chief complaint: Chest Pain Stated complaint: COUGH Time Seen by Provider: 01/21/25 22:45 Source: patient Mode of arrival: ambulance Limitations: no limitations History of Present Illness HPI narrative: 79-year-old male presents for cough which she had for an hour. He took some cough drops and it went away. It was nonproductive and he has not had a fever or hemoptysis. He states his daughter was not home to help him so he called the squad and they brought him in. Denies chest pain. Related Data Previous Rx's ?Medication ?Instructions ?Recorded amlodipine 5 mg tablet (Norvasc) 5 mg PO DAILY #30 tabs 02/04/24 aspirin 81 mg chewable tablet 81 mg PO DAILY #30 tabs 02/04/24 metformin 500 mg tablet 500 mg PO BID #60 tabs 02/04/24 Allergies Allergy/AdvReac Type Severity Reaction Status Date / Time No Known Drug Allergies Allergy Verified 02/03/24 19:46 Opioid HPI Opioid Management Most Recent Opioid Data: Last ORT Total Score 0 02/04/24, 00:21 Last ORT Risk Category Low Risk 02/04/24, 00:21 Review of Systems ROS Narrative A ten point review of systems is negative except as noted above. [facility] Medical History (Updated 01/22/25 @ 02:06 by Parag Prakash MD) Poor social situation ?Z60.9 - Problem related to social environment, unspecified (ICD-10) Noncompliance ?Z91.199 - Patient's noncompliance with other medical treatment and regimen due to unspecified reason (ICD-10) Type 2 diabetes mellitus ?E11.9 - Type 2 diabetes mellitus without complications (ICD-10) Hypertension ?I10 - Essential (primary) hypertension (ICD-10) HTN (hypertension) ?I10 - Essential (primary) hypertension (ICD-10) HLD (hyperlipidemia) ?E78.5 - Hyperlipidemia, unspecified (ICD-10) CAD (coronary artery disease) ?I25.10 - Atherosclerotic heart disease of [place] coronary artery without angina pectoris (ICD-10) Surgical History H/O heart artery stent ?Z95.5 - Presence of coronary angioplasty implant and graft (ICD-10) History of open heart surgery ?Z98.890 - Other specified postprocedural states (ICD-10) Social History (Updated 02/04/24 @ 00:36 by Maricruz Matamoros) Within the past year, how often did you have a drink containing alcohol: never Score interpretation: A score less than 4 is consistent with normal alcohol consumption. Smoking status: Never smoker Non-prescribed substance use: denies use Previous occupational history: retired Highest level of school completed/degree received: 11th grade Are you now , , , , never or living with a partner: In a typical week, how many times do you talk on the telephone with family, friends, or neighbors: never How often do you get together with friends or relatives: never How often do you attend yazidi or tenriism services: never Little interest or pleasure in doing things: not at all Feeling down, depressed, or hopeless: not at all Feel stressed/tense/nervous/anxious/difficulty sleeping: not at all Do you think of yourself as: straight/heterosexual Gender Identity: male Exam Narrative Exam Narrative: Nurses note and vital signs reviewed and patient is not hypoxic. General: The patient appears in no apparent distress. Patient is resting comfortably on cart. Skin: Warm, dry, no pallor noted. There is no rash noted. Head: Normocephalic, atraumatic Eye: Normal conjunctiva, no drainage Ears, Nose, Mouth, and Throat: oral mucosa is moist. Nares patent. Cardiovascular: Regular Rate and Rhythm Respiratory: Patient is in no distress, no accessory muscle use, lungs are clear to auscultation, no wheezing, rales or rhonchi Back: non-tender GI: Soft and nontender Musculoskeletal: The patient has no evidence of calf tenderness, no pitting edema, symmetrical pulses noted bilaterally Neurological: Awake alert and fully oriented Psychiatric: Cooperative Constitutional Vital Signs, click to edit/add: Last Vital Signs Temp 98.0 F 01/21/25 22:52 Pulse 92 H 01/21/25 22:52 Resp 18 01/21/25 22:52 BP 173/80 H 01/21/25 22:52 Pulse Ox 95 01/21/25 23:13 O2 Del Method Room Air 01/21/25 23:13 Course Vital Signs Vital signs: Vital Signs Temperature 98.0 F 01/21/25 22:52 Pulse Rate 92 H 01/21/25 22:52 Respiratory Rate 18 01/21/25 22:52 Blood Pressure 173/80 H 01/21/25 22:52 Pulse Oximetry 95 01/21/25 22:52 Oxygen Delivery Method Room Air 01/21/25 22:52 Temperature 98.0 F 01/21/25 22:52 Pulse Rate 92 H 01/21/25 22:52 Respiratory Rate 18 01/21/25 22:52 Blood Pressure 173/80 H 01/21/25 22:52 Pulse Oximetry 95 01/21/25 23:13 Oxygen Delivery Method Room Air 01/21/25 23:13 Medical Decision Making MDM Narrative Medical decision making narrative: 2 EKGs on my interpretation showed no acute findings. Troponin however came back elevated at 336. When he arrived he had no chest pain. During his stay he had a equivocal chest pain. 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 I have spoken to Dr. Eldridge, manager business at [facility], who has reviewed the EKGs and agrees that there is no STEMI. He is given aspirin and placed on a heparin drip and will be transported to that hospital and will be admitted to the hospitalist, Dr. Cerda. The patient is stable and agreeable for transfer. Differential Diagnosis Differential Diagnosis: STEMI, NSTEMI, pneumonia, COVID Lab Data Lab results reviewed: Yes I reviewed the patient's lab results Labs: Lab Results 01/21/25 01/22/25 01/22/25 Range/Units 23:03 00:12 01:43 WBC 17.3 H (4.0-11.0) 10^3/uL RBC 4.98 (4.70-6.10) 10^6/uL Hgb 15.0 (14.0-18.0) g/dL Hct 43.9 (42.0-54.0) % MCV 88.2 (80.0-94.0) fL MCH 30.1 (25.9-34.0) pg MCHC 34.2 (29.9-35.2) g/dL RDW 13.1 (11.0-15.0) % Plt Count 229 (150-450) 10^3/uL MPV 10.4 (9.5-13.5) fL Neut % (Auto) 87.0 H (43.0-75.0) % Lymph % (Auto) 6.8 L (20.5-60.0) % Mcculloch % (Auto) 5.0 (1.7-12.0) % Eos % (Auto) 0.3 L (0.9-7.0) % Baso % (Auto) 0.3 (0.2-2.0) % Neut # (Auto) 15.1 H (1.4-6.5) 10^3/uL Lymph # (Auto) 1.2 (1.2-3.8) 10^3/uL [place]och # (Auto) 0.9 H (0.3-0.8) 10^3/uL Eos # (Auto) 0.1 (0.0-0.7) 10^3/uL Baso # (Auto) 0.1 (0.0-0.1) 10^3/uL Abs Immat Gran (auto) 0.10 H (0.00-0.03) 10^3/uL Imm/Tot Granulo (auto) 0.6 H (0.0-0.5) % PT 10.9 (9.0-11.6) sec INR 1.03 APTT 27.2 (22.3-36.2) sec Sodium 136 (136-145) mmol/L Potassium 4.0 (3.5-5.1) mmol/L Chloride 101 (98-107) mmol/L Carbon Dioxide 24.8 (21.0-32.0) mmol/L Anion Gap 14.2 BUN 20.0 H (7.0-18.0) mg/dL Creatinine 0.99 (0.70-1.30) mg/dL Est GFR ( Amer) >60 (>=60 mL/min/1.73m^2) Est GFR (Non-Af Amer) >60 (>=60 mL/min/1.73m^2) BUN/Creatinine Ratio 20.2 Glucose 344 H (74-106) mg/dL Calcium 9.3 (8.5-10.1) mg/dL Troponin I High Sens 336.4 H* (4.0-76.1) pg/mL NT-Pro-B Natriuret Pep 668.0 (<=1800.0) pg/mL Influenza Type A Ag Negative Influenza Type B Ag Negative SARS-CoV-2 Ag (CV2AG) Negative (NEGATIVE) Imaging Data Chest x-ray: Radiologist's impression: ITS Impressions Chest X-Ray 01/21/25 23:03 IMPRESSION: Findings of CHF/pulmonary edema. Impression dictated by: Bang Angela M.D. 01/21/2025 11:53 PM Dictation Location: [place] [address] Electronically authenticated by: [id number] Y Date: 01/21/2025 23:53 ECG Data Attestation: I personally reviewed and interpreted this ECG as follows: (EKG on my interpretation shows sinus rhythm with first-degree AV block) Critical Care Time Critical Care Time Critical Care Time: Yes Total Critical Care Time: 40 Attestation: Due to the high probability of sudden and clinically significant deterioration in the patient's condition he/she required the highest level of my preparedness to intervene urgently I provided critical care time including documentation time, medication orders and management, reevaluation, vital sign assessment, ordering and reviewing of lab tests, ordering and reviewing of x-ray studies, and admission orders. Aggregate critical care time is 40 minutes including only time during which I was engaged in work directly related to his/her care and did not include time spent treating other patients simultaneously. Discharge Plan Discharge Chief Complaint: Chest Pain Clinical Impression: Non-ST elevation PR (NSTEMI) Patient Disposition: [facility] Time of Disposition Decision: 02:06 Discharge Location: [facility] Condition: Fair Mode of Transportation: EMS
[2025-01-21 23:26] LABS: SARS-CoV-2 Ag NEGATIVE (NEGATIVE)
[2025-01-22] VITALS (40 sets, daily range): BP systolic 149–215; BP diastolic 96–137; PULSE 86–109; O2SAT 88–97
[2025-01-22 00:31] LABS: Hematocrit 43.9 % (42.0-54.0); Hemoglobin 15.0 g/dL (14.0-18.0); Immature Granulocytes Abs Auto 0.10 10^3/uL (0.00-0.03); Immature Granulocytes Pct Auto 0.6 % (0.0-0.5); Lymphocytes Absolute Auto 1.2 10^3/uL (1.2-3.8); Mean Corpuscular HGB Conc 34.2 g/dL (29.9-35.2); Mean Corpuscular Hemoglobin 30.1 pg (25.9-34.0); Mean Corpuscular Volume 88.2 fL (80.0-94.0); Platelet Count 229 10^3/uL (150-450); Red Blood Count 4.98 10^6/uL (4.70-6.10); White Blood Count 17.3 10^3/uL (4.0-11.0)
[2025-01-22 00:51] LABS: Anion Gap 14.2; Blood Urea Nitrogen 20.0 mg/dL (7.0-18.0); Calcium 9.3 mg/dL (8.5-10.1); Carbon Dioxide 24.8 mmol/L (21.0-32.0); Chloride 101 mmol/L (98-107); Estimated GFR (African America >60 (>=60 mL/min/1.73m^2); Estimated GFR (Non-African Ame >60 (>=60 mL/min/1.73m^2); Glucose 344 mg/dL (74-106); NT Pro B Type Natriuretic Pept 668.0 pg/mL (<=1800.0); Potassium 4.0 mmol/L (3.5-5.1); Sodium 136 mmol/L (136-145)
--- NOTE | 2025-01-22 00:58 | ECG_ITS ---
[facility] Test Date: 2025-01-22 Pat Name: MAIN SAUCEDA Department: Room: - Gender: Male [employer]: : 1945 Requested By: [id number] Order Number: [id number] Reading MD: CAILIN ALLISON Measurements Intervals Dwight Rate: 98 P: 134 IN: 302 QRS: 100 QRSD: 90 T: -16 QT: 342 QTc: 397 Interpretive Statements Ectopic atrial rhythm 4336 Possible anterolateral injury or acute infarct 4636 Possible inferior injury or acute infarct 7102 Moderate right axis deviation 8102 Low QRS voltage in chest leads 0101 Possible arm leads reversed, check lead requested 9150 abnormal ECG Compared to ECG 01/21/2025 22:50:13 Right-axis deviation now present Low QRS voltage now present Myocardial infarct finding still present Electronically Signed On 01-25-2025 16:41:12 EDT by CAILIN ALLISON
[2025-01-22 01:49] LABS: INR 1.03; Partial Thromboplastin Time 27.2 sec (22.3-36.2); Prothrombin Time 10.9 sec (9.0-11.6)
[2025-01-22] MEDS: ASPIRIN 81 MG TAB.CHEW 324 MG PO (02:15)
[2025-01-22] MEDS: HEPARIN SODIUM (PORCINE) 5,000 UNIT/ML VIAL 2600 UNIT IV (02:16)
[2025-01-22] MEDS: HEPARIN SODIUM,PORCINE/D5W 25,000 UNIT/500 ML IV.SOLN 19.918 UNIT IV (02:16)
[2025-01-22] MEDS: FUROSEMIDE 40 MG/4 ML VIAL IVP (03:27)
== END 2025-01-22 05:56 | disposition short-term general hospital (02) ==
PROVIDERS: Emergency Provider Emergency Medicine
DX: I21.4 Non-ST elevation (NSTEMI) myocardial infarction (principal); I25.10 Atherosclerotic heart disease of native coronary artery without angina pectoris; Z95.1 Presence of aortocoronary bypass graft; Z95.5 Presence of coronary angioplasty implant and graft
CPT/HCPCS: 36415; 71045; 80048; 83880; 84484; 85025; 85610; 85730; 87804; 87811; 93005; 96365; 96366; 96375; 96376; 99285; J1644; J1938; J2405